=== PATIENT | male | born 1955 | race Caucasian/White ===

== ENCOUNTER → 2016-04-04 | Outpatient (CLI) | payer MEDICARE, OTHER ==
[~2016-04-04] MED LIST: /TIZA4TA PO; CLEO150C; COLA100C2; COLA100C2 OR; CYMB1CAP PO; FISH1000 PO; FLECTOR1.3 EXT; FLEX5TAB3 PO; FLEXERIL OR; IBUP600T OR; MAGN200T PO; MORP10SO OR; MORP15TA2 PO; MORPHINE SULFATE IR; MS C30TA2; MS C30TA2 OR; OMEP40CA2 PO; OXYC10TA12; OXYC40TA19; POTA75TA2 PO; REQU0.5T PO; SKEL800T5; SKEL800T5 OR; SOMA350T PO; TPS CREAM TOP; VITA100037 PO; VOLT1GEL2 TD; [UNRECOGNIZED DRUG - CODE]; [UNRECOGNIZED DRUG - CODE] OR; vitamin b PO
== END ==
LOC: M PAIN 11:00
PROVIDERS: ATTEND Nurse Practitioner Family
DX: M54.5 Low back pain (principal); M54.2 Cervicalgia; Z79.891 Long term (current) use of opiate analgesic; Z79.899 Other long term (current) drug therapy; F17.200 Nicotine dependence, unspecified, uncomplicated; Z88.6 Allergy status to analgesic agent; Z91.030 Bee allergy status

== ENCOUNTER → 2016-06-05 | Outpatient (CLI) | payer MEDICARE, OTHER | LOC: M PAIN 11:00 | PROVIDERS: ATTEND Nurse Practitioner Family | DX: Z09 Encounter for follow-up examination after completed treatment for conditions other than malignant neoplasm (principal); G89.29 Other chronic pain; M54.5 Low back pain; M54.2 Cervicalgia; K21.9 Gastro-esophageal reflux disease without esophagitis; Z91.030 Bee allergy status; Z88.8 Allergy status to other drugs, medicaments and biological substances; Z79.891 Long term (current) use of opiate analgesic; Z79.1 Long term (current) use of non-steroidal anti-inflammatories (NSAID); Z79.899 Other long term (current) drug therapy ==

== ENCOUNTER → 2016-06-18 | Outpatient (CLI) | payer MEDICARE, OTHER ==
[~2016-06-18] MED LIST changes: +BUPIVACAINE HCL 0.25% 30 ML VIAL As Ordered ONE; +ISOVUE-M 300 61% 15ML VIAL (Q9967) As Ordered ONE; +LIDOCAINE 1% SDV INJ 30 ML VIAL As Ordered ONE; +TRIAMCINOLONE ACETONIDE SUSP 40 MG/ML VIAL (J3301) As Ordered ONE
--- NOTE | 2016-06-18 13:36 | REP ---
Partial lumbar spine series: Six views. History: Bilateral facet block for pain. 30 seconds of fluoroscopy time is reported. Findings: A sequence of six last image hold fluoroscopic spot radiographs of the lumbar spine document various needle positions and contrast injections associated with facet injection procedures. Signed by Bry Ivy MD 06/18/2016 06:26 P
--- NOTE | 2016-06-24 23:43 | ECWPNPC ---
PATIENT NAME: KEMAR SEGURA : 1955 GENDER: MALE VISIT DATE: 06/18/2016 DISCHARGE DATE: 06/18/16 1323 VISIT LOCKED DATE TIME: PHYSICIAN: ANNAMARIE KELLEY RESOURCE: ANNAMARIE KELLEY REASON FOR APPOINTMENT 1. THERAPEUTIC FACET HISTORY OF PRESENT ILLNESS HISTORY OF PRESENT ILLNESS: PAIN THE PATIENT DESCRIBES THE PAIN... FALL RISK SCREENING: SCREENING :NO FALLS IN THE PAST YEAR CURRENT MEDICATIONS TAKING FISH OIL 1000 MG CAPSULE 1 CAPSULE ORALLY ONCE A DAY, NOTES: 06-17-16 AM TAKING VITAMIN D 2000 UNIT TABLET 1 TABLET ORALLY DAILY, NOTES: 06-17-16 AM TAKING VOLTAREN 1 % GEL 1 DOSE TRANSDERMAL EVERY 6- 8 HOURS NEEDED, NOTES: WEEK TAKING VITAMIN B-COMPLEX TABLET ORALLY DAILY, NOTES: 06-17-16 AM TAKING MORPHINE SULFATE 15 MG TABLET 1 TABLET ORALLY EVERY 6-8 HRS PRN PAIN MDD=2 TAKING IBUPROFEN 600 MG TABLET 1 TABLET ORALLY THREE TIMES A DAY NEEDED, NOTES: 06-18-1699 TAKING MORPHINE SULFATE 15 MG TABLET 1 TABLET NEEDED ORALLY Q4-6H PRN MDD2, NOTES: 06-18-16 010 TAKING ZANAFLEX 4 MG TABLET 1 ORALLY EVERY 8 HRS PRN MUSCLE SPASM PAIN, NOTES: 06-18-1699 DISCONTINUED MORPHINE SULFATE 15 MG CAPSULE NEEDED ORALLY BID PRN MDD 2 DISCONTINUED MAGNESIUM 200 MG TABLET ORALLY ONCE A DAY DISCONTINUED POTASSIMIN 75 MG TABLET 1 TABLET ORALLY ONCE A DAY DISCONTINUED VALIUM 10 MG TABLET 1 TABLET NEEDED ORALLY 1 TAB 1HR PRE PROC. MDD1 DISCONTINUED OMEPRAZOLE 40 MG 1 CAPSULE ORALLY ONCE A DAY MEDICATION LIST REVIEWED AND RECONCILED WITH THE PATIENT PAST MEDICAL HISTORY GERD CLUB FEET INFANT AND HAD BRACES AND CRUTCHES ALLERGIES BEE STINGS: HIVES,ITCHING NAPROSYN: HIVES, ITCHING SOCIAL HISTORY GENERAL: PAIN CLINIC PFS, CLERGY, PUBLIC HEALTH REFERRALS CLERGY REFERRAL NEEDED?NO WAS THE PROVIDER NOTIFIED OF ANY PERTINENT INFO?NO PFS REFERRAL NEEDED?NO PUBLIC HEALTH REFERRAL NEEDED?NO PATIENT: ____. REVIEW OF SYSTEMS CONSTITUTIONAL: ANY CHANGE IN YOUR MEDICAL CONDITION? NO . CHILLS NO . FEVER NO . INFECTION: DO YOU HAVE NEW INFECTIONS? NO . DO YOU HAVE HISTORY OF MRSA? NO . MUSCULOSKELETAL: ANY NEW PATTERNS OF PAIN OR NUMBNESS? NO . GASTROENTEROLOGY: ANY NEW CHANGE IN BOWEL CONTROL? NO . GENITOURINARY: ANY NEW CHANGE IN BLADDER CONTROL? NO . IS THERE A CHANCE YOU COULD BE ? NO . HEMATOLOGY/LYMPH: DO YOU TAKE ANY BLOOD THINNERS? (FOR EXAMPLE- COUMADIN, PLAVIX, AGGRENOX, PLATEL, PRADAXA, OR XARELTO) NO . WHEN WAS YOUR LAST DOSE? DATE: TIME: . NEUROLOGY: HAVE YOU FALLEN IN THE PAST 6 MONTHS? NO . ANY NEW EXTREMITY NUMBNESS OR WEAKNESS? NO . CARDIOLOGY: DO YOU HAVE A PACEMAKER OR DEFIBRILLATOR? NO . RESPIRATORY: HAVE YOU BEEN SICK IN THE PAST WEEK? NO . FEVER NO . FLU LIKE SYMPTOMS? NO . COUGH NO . INTEGUMENTARY: DO YOU HAVE ANY RASHES OR OPEN SORES? NO . ALLERGIC/IMMUNO: ARE YOU ALLERGIC TO SHELLFISH OR IV DYE? NO . ANY NEW ALLERGIES? NO . PSYCHIATRIC: DO YOU HAVE THOUGHTS OF HURTING YOURSELF OR SOMEONE ELSE? NO . ARE YOU ABUSED, NEGLECTED, OR IN AN UNSAFE ENVIRONMENT? NO . ENDOCRINOLOGY: ARE YOU DIABETIC? NO . OTHER: DO YOU NEED ANY PRESCRIPTIONS? NO . IF YES, PLEASE LIST: ____ . ANY NEW PROBLEMS WITH YOUR MEDICATIONS? NO . WHEN DID YOU LAST EAT? 06-17-16 3PM . WHEN DID YOU LAST DRINK? 06-18-16 0100 . WHAT DID YOU LAST DRINK? SODA . NAME OF PERSON DRIVING YOU HOME? ADELA . DO YOU HAVE ANY OTHER QUESTIONS OR CONCERNS NO . REVIEWED BY: PROVIDER: . VITAL SIGNS WT 254 LBS, HT 6'0, BMI 34.44 INDEX, BP 154/73 MM HG, HR 64 /MIN, RR 18 /MIN, TEMP 98.2 F, OXYGEN SAT % 97%, NA INITIALS SC 11:36, REVIEWED BY: CM. ASSESSMENTS SPONDYLOSIS WITHOUT MYELOPATHY OR RADICULOPATHY, LUMBAR REGION - M47.816 (PRIMARY) SPONDYLOSIS WITHOUT MYELOPATHY OR RADICULOPATHY, LUMBOSACRAL REGION - M47.817 PROCEDURES PN LUMBAR FACET BLOCK THERAPEUTIC PRE PROCEDURE DIAGNOSIS LUMBAR SPONDYLOSIS, LUMBOSACRAL SPONDYLOSIS POST PROCEDURE DIAGNOSIS LUMBAR SPONDYLOSIS, LUMBOSACRAL SPONDYLOSIS PROCEDURE BILATERAL L4-L5 AND BILATERAL L5-S1 LUMBAR FACET THERAPEUTIC BLOCK SURGEON DR. 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 I EVALUATE THE PATIENT AND REVIEWED THE CHART. I WENT OVER THE RISKS, ALTERNATIVES, AND BENEFITS ASSOCIATED WITH THIS PROCEDURE. THE PATIENT WOULD LIKE TO PROCEED AND GIVE CONSENT TO PERFORMED THE PROCEDURE. THE PATIENT DENIES UNEXPLAINABLE WEIGHT LOSS, FEVER, CHILLS, OR NEW CHANGES IN URINARY OR BOWEL CONTROL DESCRIPTION OF PROCEDURE THE PATIENT WAS BROUGHT TO THE PROCEDURE ROOM AND PLACED IN THE PRONE POSITION. THE LUMBOSACRAL AREA WAS CLEANED WITH CHLORAPREP SOLUTION AND DRAPED ASEPTICALLY. THE PROCEDURE WAS DONE UNDER STERILE CONDITIONS. I CHECKED LATERALITY AND THE LEVEL WHERE THE PROCEDURE WAS GOING TO BE PERFORMED WITH THE PATIENT AND THE SUPPORTING STAFF AT THE MOMENT OF THE TIME OUT IN THE PROCEDURE ROOM. UNDER FLUOROSCOPIC GUIDANCE, THE TARGET POINT WAS SELECTED AT THE RIGHT AND LEFT L4-L5 AND RIGHT AND LEFT L5-S1 FACET JOINT. TARGET POINT WAS SELECTED AFTER LATERAL ROTATION AND TILT OF THE MAGNIFIER OF THE C-ARM. LIDOCAINE 0.5% WAS USED TO NUMB THE SKIN AND THE SUBCUTANEOUS TISSUE BELOW IT. SPINAL NEEDLES, 22-GAUGE, WERE ADVANCED UNDER FLUOROSCOPIC GUIDANCE AND FOLLOWING PATIENT FEEDBACK UNTIL THE TARGETS WERE TOUCHED. THE POSITION OF THE NEEDLES WAS VERIFIED WITH AP AND LATERAL VIEWS. AFTER PROPER POSITION OF THE NEEDLES WAS ACHIEVED, ISOVUE-M DYE 30% 0.1 ML WAS INJECTED SHOWING ADEQUATE SPREAD OF THE DYE. THEN A SOLUTION OF 1.9 ML OF BUPIVACAINE 0.125% OF KENALOG 10 MG WAS INJECTED AT EACH SITE. THERE WAS NO EVIDENCE OF BLOOD, PARESTHESIA OR CEREBROSPINAL FLUID DURING THE PROCEDURE. THE PATIENT WAS SENT TO THE RECOVERY ROOM. THE PATIENT WAS MOVING THE EXTREMITIES AND DOING WELL. THERE WAS NO COMPLICATION DURING THE PROCEDURE. FLUOROSCOPY TIME WAS 30 SECONDS POST PROCEDURE NOTE THE PATIENT WILL BE SEEN IN A FOLLOW UP IN THE NEXT FEW WEEKS. INSTRUCTIONS WERE GIVEN, QUESTIONS WERE ANSWERED, AND THE PATIENT EXPRESSED UNDERSTANDING AND AGREES WITH THE PLAN. I, SAFIA DECKER, DOCUMENTED THE ABOVE INFORMATION ACTING A SCRIBE FOR DR. KELLEY. I HAVE REVIEWED THE ABOVE DOCUMENT, WRITTEN BY SAFIA DECKER SCRIBTaye AND I VERIFY THAT IT IS ACCURATE. DIAGNOSTIC IMAGING [facility] FACET BLOCK (PAIN)[id number] PROCEDURE CODES 79159 INJ PARAVERT F JNT L/S 1 LEV 93121 INJ PARAVERT F JNT L/S 2 LEV 6045F RADXPS IN END [id number] PXD DISPOSITION & COMMUNICATION FOLLOW UP 3 WEEKS ELECTRONICALLY SIGNED BY ANNAMARIE KELLEY MD ON 06/24/2016 AT 05:53 PM EDT DISCLAIMER : THIS IS A VISIT SUMMARY EXTRACTED FROM THE [facility] CHART. IT IS NOT A COPY OF THE [facility] PROGRESS NOTE. MTDD
== END ==
LOC: M PAIN 11:40
PROVIDERS: ATTEND Anesthesiology
DX: G89.29 Other chronic pain (principal); M47.816 Spondylosis without myelopathy or radiculopathy, lumbar region; M47.817 Spondylosis without myelopathy or radiculopathy, lumbosacral region; K21.9 Gastro-esophageal reflux disease without esophagitis; Z87.798 Personal history of other (corrected) congenital malformations; Z91.030 Bee allergy status; Z88.8 Allergy status to other drugs, medicaments and biological substances; Z79.891 Long term (current) use of opiate analgesic; Z79.899 Other long term (current) drug therapy
CPT/HCPCS: 64493; 64494; J3301; Q9967

== ENCOUNTER → 2016-07-04 | Outpatient (CLI) | payer MEDICARE, OTHER ==
[~2016-07-04] MED LIST changes: -BUPIVACAINE HCL 0.25% 30 ML VIAL As Ordered ONE; -ISOVUE-M 300 61% 15ML VIAL (Q9967) As Ordered ONE; -LIDOCAINE 1% SDV INJ 30 ML VIAL As Ordered ONE; -TRIAMCINOLONE ACETONIDE SUSP 40 MG/ML VIAL (J3301) As Ordered ONE
--- NOTE | 2016-07-18 00:01 | ECWPNPC ---
PATIENT NAME: KEMAR SEGURA : 1955 GENDER: MALE VISIT DATE: 07/04/2016 DISCHARGE DATE: 07/04/16 1543 VISIT LOCKED DATE TIME: PHYSICIAN: ALESSIA MATHEWS RESOURCE: ALESSIA MATHEWS HISTORY OF PRESENT ILLNESS HISTORY OF PRESENT ILLNESS: HERE FOR POST PROCEDURE F/U.HAD BILAT.L4/5-L5/S1 THERAPEUTIC FACET BLOCK ON 06-18-16.HAS HAD >50% IMPROVEMENT IN PAIN IN MID BACK THAT CONTINUES TODAY.CHIEF AREA OF PAIN IS SACROILLIAC JOINT AREA.DISCUSSED TREATMENT OPTIONS.PAIN IS AGGREVATED BY LIFTING OR WALKING.RATING THIS AREA OF PAIN 3/10.ALSO SUFFERS FROM CHRONIC NECK PAIN.PAIN IS CONSTANT IN NECK. PAIN THE PATIENT DESCRIBES THE PAIN... FALL RISK SCREENING: SCREENING :NO FALLS IN THE PAST YEAR CURRENT MEDICATIONS TAKING FISH OIL 1000 MG CAPSULE 1 CAPSULE ORALLY ONCE A DAY TAKING VITAMIN D 2000 UNIT TABLET 1 TABLET ORALLY DAILY TAKING VOLTAREN 1 % GEL 1 DOSE TRANSDERMAL EVERY 6- 8 HOURS NEEDED TAKING VITAMIN B-COMPLEX TABLET ORALLY DAILY TAKING IBUPROFEN 600 MG TABLET 1 TABLET ORALLY THREE TIMES A DAY NEEDED TAKING MORPHINE SULFATE 15 MG TABLET 1 TABLET NEEDED ORALLY Q4-6H PRN MDD2 TAKING ZANAFLEX 4 MG TABLET 1 ORALLY EVERY 8 HRS PRN MUSCLE SPASM PAIN NOT-TAKING MORPHINE SULFATE 15 MG TABLET 1 TABLET ORALLY EVERY 6-8 HRS PRN PAIN MDD=2 MEDICATION LIST REVIEWED AND RECONCILED WITH THE PATIENT PAST MEDICAL HISTORY GERD CLUB FEET AND HAD BRACES AND CRUTCHES ALLERGIES BEE STINGS: HIVES,ITCHING NAPROSYN: HIVES, ITCHING FAMILY HISTORY FATHER: 78 YRS, DIAGNOSED WITH DIABETES, HYPERTENSION MOTHER: 56 YRS, DIAGNOSED WITH CANCER DAD- MESOPHELIOMA, DAUGHTER - MURDERED. SOCIAL HISTORY GENERAL: TOBACCO USE ARE YOU A:CURRENT SMOKER HOW MANY CIGARETTES A DAY DO YOU SMOKE? 2 PACKS PER DAY PATIENT COUNSELED ON THE DANGERS OF TOBACCO USE AND URGED TO QUIT:07/04/2016 ARE YOU INTERESTED IN QUITTING?NOT READY TO QUIT COUNSELED THE PATIENT ON SMOKING EFFECTS, EDUCATION [id number]/2017 CAFFEINE CAFFEINE USE?YES HOW OFTEN AND HOW MUCH? 12 CUPS PER DAY LEARNING BARRIERS / SPECIAL NEEDS VISION IMPAIRED?YES :CORRECTIVE LENSES READINESS TO LEARN?YES SPECIAL DEVICES?NO PAIN CLINIC PFS, CLERGY, PUBLIC HEALTH REFERRALS PFS REFERRAL NEEDED?NO CLERGY REFERRAL NEEDED?NO PUBLIC HEALTH REFERRAL NEEDED?NO WAS THE PROVIDER NOTIFIED OF ANY PERTINENT INFO?YES REVIEWED BY: ANTOINE. PATIENT: ____. ADVANCED DIRECTIVES HEALTH CARE PROXY?NO WOULD YOU LIKE MORE INFORMATION?YES REVIEW OF SYSTEMS CONSTITUTIONAL: ANY CHANGE IN YOUR MEDICAL CONDITION? NO . CHILLS NO . FEVER NO . INFECTION: DO YOU HAVE NEW INFECTIONS? NO . DO YOU HAVE HISTORY OF MRSA? NO . MUSCULOSKELETAL: ANY NEW PATTERNS OF PAIN OR NUMBNESS? NO . GASTROENTEROLOGY: ANY NEW CHANGE IN BOWEL CONTROL? NO . GENITOURINARY: ANY NEW CHANGE IN BLADDER CONTROL? NO . IS THERE A CHANCE YOU COULD BE ? NO . HEMATOLOGY/LYMPH: DO YOU TAKE ANY BLOOD THINNERS? (FOR EXAMPLE- COUMADIN, PLAVIX, AGGRENOX, PLATEL, PRADAXA, OR XARELTO) NO . WHEN WAS YOUR LAST DOSE? DATE: TIME: . NEUROLOGY: HAVE YOU FALLEN IN THE PAST 6 MONTHS? NO . ANY NEW EXTREMITY NUMBNESS OR WEAKNESS? NO . CARDIOLOGY: DO YOU HAVE A PACEMAKER OR DEFIBRILLATOR? NO . RESPIRATORY: HAVE YOU BEEN SICK IN THE PAST WEEK? NO . FEVER NO . FLU LIKE SYMPTOMS? NO . COUGH NO . INTEGUMENTARY: DO YOU HAVE ANY RASHES OR OPEN SORES? NO . ALLERGIC/IMMUNO: ARE YOU ALLERGIC TO SHELLFISH OR IV DYE? NO . ANY NEW ALLERGIES? NO . PSYCHIATRIC: DO YOU HAVE THOUGHTS OF HURTING YOURSELF OR SOMEONE ELSE? NO . ARE YOU ABUSED, NEGLECTED, OR IN AN UNSAFE ENVIRONMENT? NO . ENDOCRINOLOGY: ARE YOU DIABETIC? NO . OTHER: DO YOU NEED ANY PRESCRIPTIONS? NO . IF YES, PLEASE LIST: ____ . ANY NEW PROBLEMS WITH YOUR MEDICATIONS? NO . WHEN DID YOU LAST EAT? ____ . WHEN DID YOU LAST DRINK? ____ . WHAT DID YOU LAST DRINK? ____ . NAME OF PERSON DRIVING YOU HOME? ____ . DO YOU HAVE ANY OTHER QUESTIONS OR CONCERNS NO, PT STATES THAT HE IS A CURRENT SMOKER AND REFUSES ANY SMOKING CESSATION COUSELING AT THIS TIME. PT STATES THAT HE HAD GOOD RESULTS FROM THERAPEUTIC FACET BLOCK, PAIN WAS DECREASED. PT STATES THAT MD KELLEY RECOMMENDED THAT HE HAVE SIJ BLOCK INJECTIONS, PT STATES THAT HE ALSO IS HAVING NECK PAIN. PT STATES THAT HE LEANED TO SIDE AND RESTED HEAD ON SHOULDER AND DECREASED PAIN SIGNIFICANTLY . REVIEWED BY: PROVIDER: ALESSIA RUVALCABA . VITAL SIGNS WT 248 LBS, HT 6'0, BMI 33.63 INDEX, BP 149/76 MM HG, HR 76 /MIN, RR 18 /MIN, TEMP 98.8 F, OXYGEN SAT % 95, SAFE IN ENV? (Y/N) Y, REVIEWED BY: DS. EXAMINATION GENERAL EXAMINATION: LUNGS:LUNG SOUNDS ARE CLEAR. HEART:HEART RATE REGULAR. MUSCULOSKELETAL:*, PALPATION: POSITIVE FOR PAIN OVER L/S SPINE. POSITIVE FOR PAIN OVER L/S PARASPINALS, MUSCLE STRENGTH TESTING 5/5 BILATERAL, SPECIFIC POINT TENDERNESS OVER SIJ BILATERAL. 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 MRI SPINE, CERVICAL WITHOUT [id number] [facility] MRI SPINE, L.S. WITHOUT [id number] INJECTION ANESTHETIC SACROILIAC JOINTALESSIA MATHEWS 07/04/2016 3:27:45 PM > BILAT. SIJ PROCEDURE CODES FA211 ESTABILISHED PATIENT [facility] FACILITY CHARGE DISPOSITION & COMMUNICATION FOLLOW UP 2WK POST (REASON: BILAT. SIJ) ELECTRONICALLY SIGNED BY PEG ANDERSON ON 07/17/2016 AT 04:57 PM EDT DISCLAIMER : THIS IS A VISIT SUMMARY EXTRACTED FROM THE [facility] CHART. IT IS NOT A COPY OF THE [facility] PROGRESS NOTE. KEITH
== END ==
LOC: M PAIN 14:40
PROVIDERS: ATTEND Nurse Practitioner Family
DX: G89.29 Other chronic pain (principal); M54.5 Low back pain; M54.2 Cervicalgia; M53.3 Sacrococcygeal disorders, not elsewhere classified; K21.9 Gastro-esophageal reflux disease without esophagitis; F17.200 Nicotine dependence, unspecified, uncomplicated; Z91.030 Bee allergy status; Z88.8 Allergy status to other drugs, medicaments and biological substances; Z79.899 Other long term (current) drug therapy

== ENCOUNTER → 2016-07-17 | Outpatient (CLI) | payer MEDICARE, OTHER ==
[~2016-07-17] MED LIST changes: +BUPIVACAINE HCL 0.25% 30 ML VIAL As Ordered ONE; +ISOVUE-M 300 61% 15ML VIAL (Q9967) As Ordered ONE; +LIDOCAINE 1% SDV INJ 30 ML VIAL As Ordered ONE; +TRIAMCINOLONE ACETONIDE SUSP 40 MG/ML VIAL (J3301) As Ordered ONE
--- NOTE | 2016-07-17 12:14 | REP ---
Partial SI joint series: Five views. History: Injection procedure for pain. 28 seconds of fluoroscopy time is reported. Findings: A sequence of five intraprocedural last image hold fluoroscopically obtained spot radiographs of the SI joints document various needle positions and contrast injections. Signed by Bry Ivy MD 07/17/2016 12:27 P
--- NOTE | 2016-07-26 23:53 | ECWPNPC ---
PATIENT NAME: KEMAR SEGURA : 1955 GENDER: MALE VISIT DATE: 07/17/2016 DISCHARGE DATE: 07/17/16 1158 VISIT LOCKED DATE TIME: PHYSICIAN: ANNAMARIE KELLEY RESOURCE: ANNAMARIE KELLEY REASON FOR APPOINTMENT 1. GABRIELLA SIJ HISTORY OF PRESENT ILLNESS HISTORY OF PRESENT ILLNESS: PAIN THE PATIENT DESCRIBES THE PAIN... FALL RISK SCREENING: SCREENING :NO FALLS IN THE PAST YEAR CURRENT MEDICATIONS TAKING FISH OIL 1000 MG CAPSULE 1 CAPSULE ORALLY ONCE A DAY, NOTES: 07/16/16899 TAKING VITAMIN D 2000 UNIT TABLET 1 TABLET ORALLY DAILY, NOTES: 07/16/16899 TAKING VOLTAREN 1 % GEL 1 DOSE TRANSDERMAL EVERY 6- 8 HOURS NEEDED, NOTES: 07/13/16 TAKING VITAMIN B-COMPLEX TABLET ORALLY DAILY, NOTES: 07/16/16899 TAKING IBUPROFEN 600 MG TABLET 1 TABLET ORALLY THREE TIMES A DAY NEEDED, NOTES: 07/15/16899 TAKING MORPHINE SULFATE 15 MG TABLET 1 TABLET NEEDED ORALLY Q4-6H PRN MDD2, NOTES: 07/16/16899 TAKING ZANAFLEX 4 MG TABLET 1 ORALLY EVERY 8 HRS PRN MUSCLE SPASM PAIN, NOTES: 07/16/16899 NOT-TAKING MORPHINE SULFATE 15 MG TABLET 1 TABLET ORALLY EVERY 6-8 HRS PRN PAIN MDD=2 MEDICATION LIST REVIEWED AND RECONCILED WITH THE PATIENT PAST MEDICAL HISTORY GERD CLUB FEET AND HAD BRACES AND CRUTCHES ALLERGIES BEE STINGS: HIVES,ITCHING NAPROSYN: HIVES, ITCHING SOCIAL HISTORY GENERAL: TOBACCO USE ARE YOU A:CURRENT SMOKER HOW MANY CIGARETTES A DAY DO YOU SMOKE?31 OR MORE 2 PACKS PER DAY HOW SOON AFTER YOU WAKE UP DO YOU SMOKE YOUR FIRST CIGARETTE?WITHIN 5 MIN HOW OFTEN DO YOU SMOKE CIGARETTES?EVERY DAY PATIENT COUNSELED ON THE DANGERS OF TOBACCO USE AND URGED TO QUIT:07/17/2016 ARE YOU INTERESTED IN QUITTING?NOT READY TO QUIT COUNSELED THE PATIENT ON SMOKING EFFECTS, EDUCATION [id number]/16/2017 CAFFEINE CAFFEINE USE?YES HOW OFTEN AND HOW MUCH? 12 CUPS PER DAY LEARNING BARRIERS / SPECIAL NEEDS VISION IMPAIRED?YES :CORRECTIVE LENSES READINESS TO LEARN?YES SPECIAL DEVICES?NO PAIN CLINIC PFS, CLERGY, PUBLIC HEALTH REFERRALS PFS REFERRAL NEEDED?NO CLERGY REFERRAL NEEDED?NO PUBLIC HEALTH REFERRAL NEEDED?NO WAS THE PROVIDER NOTIFIED OF ANY PERTINENT INFO?YES REVIEWED BY: ANTOINE. PATIENT: ____. ADVANCED DIRECTIVES HEALTH CARE PROXY?NO WOULD YOU LIKE MORE INFORMATION?YES REVIEW OF SYSTEMS CONSTITUTIONAL: ANY CHANGE IN YOUR MEDICAL CONDITION? NO . CHILLS NO . FEVER NO . INFECTION: DO YOU HAVE NEW INFECTIONS? NO . DO YOU HAVE HISTORY OF MRSA? NO . MUSCULOSKELETAL: ANY NEW PATTERNS OF PAIN OR NUMBNESS? NO . GASTROENTEROLOGY: ANY NEW CHANGE IN BOWEL CONTROL? NO . GENITOURINARY: ANY NEW CHANGE IN BLADDER CONTROL? NO . IS THERE A CHANCE YOU COULD BE ? NO . HEMATOLOGY/LYMPH: DO YOU TAKE ANY BLOOD THINNERS? (FOR EXAMPLE- COUMADIN, PLAVIX, AGGRENOX, PLATEL, PRADAXA, OR XARELTO) NO . WHEN WAS YOUR LAST DOSE? DATE: TIME: . NEUROLOGY: HAVE YOU FALLEN IN THE PAST 6 MONTHS? NO . ANY NEW EXTREMITY NUMBNESS OR WEAKNESS? NO . CARDIOLOGY: DO YOU HAVE A PACEMAKER OR DEFIBRILLATOR? NO . RESPIRATORY: HAVE YOU BEEN SICK IN THE PAST WEEK? NO . FEVER NO . FLU LIKE SYMPTOMS? NO . COUGH NO . INTEGUMENTARY: DO YOU HAVE ANY RASHES OR OPEN SORES? NO . ALLERGIC/IMMUNO: ARE YOU ALLERGIC TO SHELLFISH OR IV DYE? NO . ANY NEW ALLERGIES? NO . PSYCHIATRIC: DO YOU HAVE THOUGHTS OF HURTING YOURSELF OR SOMEONE ELSE? NO . ARE YOU ABUSED, NEGLECTED, OR IN AN UNSAFE ENVIRONMENT? NO . ENDOCRINOLOGY: ARE YOU DIABETIC? NO . OTHER: DO YOU NEED ANY PRESCRIPTIONS? NO . IF YES, PLEASE LIST: ____ . ANY NEW PROBLEMS WITH YOUR MEDICATIONS? NO . WHEN DID YOU LAST EAT? 07/16/162199 . WHEN DID YOU LAST DRINK? 07/16/162199 . WHAT DID YOU LAST DRINK? MILK . NAME OF PERSON DRIVING YOU HOME? ____ . DO YOU HAVE ANY OTHER QUESTIONS OR CONCERNS NO . REVIEWED BY: PROVIDER: . VITAL SIGNS WT 245.6 LBS, HT 6'0, BMI 33.31 INDEX, BP 139/79 MM HG, HR 63 /MIN, RR 16 /MIN, TEMP 98.2 F, OXYGEN SAT % 96%, NA INITIALS TL 1034, REVIEWED BY: AD. ASSESSMENTS SACROILIITIS, NOT ELSEWHERE CLASSIFIED - M46.1 (PRIMARY) PROCEDURES PN SI PRE PROCEDURE DIAGNOSIS SACROILIITIS, SACROILIAC JOINT DYSFUNCTION POST PROCEDURE DIAGNOSIS SACROILIITIS, SACROILIAC JOINT DYSFUNCTION PROCEDURE BILATERAL SACROILIAC JOINT BLOCK SURGEON DR. ANNAMARIE KELLEY PRODUCT PROMOTER RETAIL PET NONE ANESTHESIA LOCAL PRE PROCEDURE NOTE PATIENT WITH HISTORY OF CHRONIC LOW BACK PAIN. I EVALUATED THE PATIENT AND REVIEWED THE CHART. I WENT OVER THE RISKS, ALTERNATIVES, AND BENEFITS ASSOCIATED WITH THIS PROCEDURE. THE PATIENT WOULD LIKE TO PROCEED AND GAVE CONSENT TO PERFORM THE PROCEDURE. THE PATIENT DENIES UNEXPLAINABLE WEIGHT LOSS, FEVER, CHILLS, OR NEW CHANGES IN URINARY OR BOWEL CONTROL DESCRIPTION OF PROCEDURE THE PATIENT WAS BROUGHT TO THE PROCEDURE ROOM AND PLACED IN THE PRONE POSITION. THE LUMBOSACRAL AREA WAS CLEANED WITH CHLORAPREP SOLUTION AND DRAPED ASEPTICALLY. THE PROCEDURE WAS DONE UNDER STERILE CONDITIONS. I CHECKED LATERALITY AND THE LEVEL WHERE THE PROCEDURE WAS GOING TO BE PERFORMED WITH THE PATIENT AND THE SUPPORTING STAFF AT THE MOMENT OF THE TIME OUT IN THE PROCEDURE ROOM. UNDER FLUOROSCOPIC GUIDANCE, TARGET POINT WAS SELECTED AT THE LOWER BORDER OF THE RIGHT AND LEFT SACROILIAC JOINT. TARGET POINT WAS SELECTED AFTER MEDIAL ROTATION AND TILT OF THE MAGNIFIER OF THE C-ARM. LIDOCAINE WAS USED TO NUMB THE SKIN AND SUBCUTANEOUS TISSUE BELOW IT. A SPINAL NEEDLE, 22-GAUGE, WAS ADVANCED UNDER FLUOROSCOPIC GUIDANCE AND FOLLOWING PATIENT FEEDBACK UNTIL THE TARGET AREA WAS TOUCHED. THE POSITION OF THE NEEDLE WAS VERIFIED WITH AP AND LATERAL VIEWS. AFTER PROPER POSITION OF THE NEEDLE WAS ACHIEVED, ISOVUE M DYE 30%, 0.25 ML, WAS INJECTED SHOWING SPREAD OF THE DYE. THEN, A SOLUTION OF 20 MG OF KENALOG WAS INJECTED IN RIGHT JOINT WITH 3 ML OF BUPIVACAINE 0.125%. THERE WAS NO EVIDENCE OF BLOOD, PARESTHESIA OR CEREBROSPINAL FLUID DURING THE PROCEDURE. THE PATIENT WAS SENT TO THE RECOVERY ROOM. THE PATIENT WAS MOVING THE EXTREMITIES AND DOING WELL. THERE WAS NO COMPLICATION DURING THE PROCEDURE. FLUOROSCOPY TIME WAS 28 SECONDS POST PROCEDURE NOTE THE PATIENT WILL BE SEEN IN A FOLLOW UP IN THE NEXT FEW WEEKS. INSTRUCTIONS WERE GIVEN, QUESTIONS WERE ANSWERED, AND THE PATIENT EXPRESSED UNDERSTANDING AND AGREED WITH THE PLAN. I, SAFIA DECKER, DOCUMENTED THE ABOVE INFORMATION ACTING A SCRIBE FOR DR. KELLEY. I HAVE REVIEWED THE ABOVE DOCUMENT, WRITTEN BY SAFIA ALVAREZ AND I VERIFY THAT IT IS ACCURATE DIAGNOSTIC IMAGING [facility] FLUORO GUIDANCE (PAIN)[id number] PROCEDURE CODES 24141 INJECT SACROILIAC JOINT 6045F RADXPS IN END [id number] PXD DISPOSITION & COMMUNICATION FOLLOW UP 3 WEEKS ELECTRONICALLY SIGNED BY ANNAMARIE KELLEY MD ON 07/26/2016 AT 07:59 PM EDT DISCLAIMER : THIS IS A VISIT SUMMARY EXTRACTED FROM THE [employer] CHART. IT IS NOT A COPY OF THE [employer] PROGRESS NOTE. KEITH
== END ==
LOC: M PAIN 11:00
PROVIDERS: ATTEND Anesthesiology
DX: G89.29 Other chronic pain (principal); M46.1 Sacroiliitis, not elsewhere classified; M53.88 Other specified dorsopathies, sacral and sacrococcygeal region; F17.210 Nicotine dependence, cigarettes, uncomplicated; Z79.899 Other long term (current) drug therapy
CPT/HCPCS: G0260; J3301; Q9967

== ENCOUNTER → 2016-07-31 | Outpatient (CLI) | payer MEDICARE, OTHER ==
[~2016-07-31] MED LIST changes: -BUPIVACAINE HCL 0.25% 30 ML VIAL As Ordered ONE; -ISOVUE-M 300 61% 15ML VIAL (Q9967) As Ordered ONE; -LIDOCAINE 1% SDV INJ 30 ML VIAL As Ordered ONE; -TRIAMCINOLONE ACETONIDE SUSP 40 MG/ML VIAL (J3301) As Ordered ONE
--- NOTE | 2016-08-01 01:12 | ECWPNPC ---
PATIENT NAME: KEMAR SEGURA : 1955 GENDER: MALE VISIT DATE: 07/31/2016 DISCHARGE DATE: 07/31/16 1142 VISIT LOCKED DATE TIME: PHYSICIAN: ALESSIA MATHEWS RESOURCE: ALESSIA MATHEWS REASON FOR APPOINTMENT 1. POST GABRIELLA SIJ HISTORY OF PRESENT ILLNESS HISTORY OF PRESENT ILLNESS: HERE FOR POST PROCEDURE F/U.HAD BILAT. SIJ 07-17-16.REPORTS >75% IMPROVEMENT IN PAIN THAT CONTINUES TODAY.RATING PAIN VAS 2/10.WORSE AREA OF PAIN IS NECK.DESCRIBES PAIN TENDER AND SORE.REVIEWED MRI LUMBAR SPINE AND CERVICAL SPINE DONE 07-09-16.HAS RESPONDED WELL TO CERVICAL FACETS IN THE PAST. PAIN THE PATIENT DESCRIBES THE PAIN... FALL RISK SCREENING: SCREENING :NO FALLS IN THE PAST YEAR CURRENT MEDICATIONS TAKING FISH OIL 1000 MG CAPSULE 1 CAPSULE ORALLY ONCE A DAY, NOTES: 07/16/16 09 TAKING VITAMIN D 2000 UNIT TABLET 1 TABLET ORALLY DAILY, NOTES: 07/16/16 09 TAKING VOLTAREN 1 % GEL 1 DOSE TRANSDERMAL EVERY 6- 8 HOURS NEEDED, NOTES: 07/13/16 TAKING VITAMIN B-COMPLEX TABLET ORALLY DAILY, NOTES: 07/16/16 09 TAKING IBUPROFEN 600 MG TABLET 1 TABLET ORALLY THREE TIMES A DAY NEEDED, NOTES: 07/15/16 0900 TAKING MORPHINE SULFATE 15 MG TABLET 1 TABLET NEEDED ORALLY Q4-6H PRN MDD2, NOTES: 07/16/16 09 TAKING ZANAFLEX 4 MG TABLET 1 ORALLY EVERY 8 HRS PRN MUSCLE SPASM PAIN, NOTES: 07/16/16 09 NOT-TAKING MORPHINE SULFATE 15 MG TABLET 1 TABLET ORALLY EVERY 6-8 HRS PRN PAIN MDD=2 MEDICATION LIST REVIEWED AND RECONCILED WITH THE PATIENT PAST MEDICAL HISTORY GERD CLUB FEET INFANT AND HAD BRACES AND CRUTCHES ALLERGIES BEE STINGS: HIVES,ITCHING NAPROSYN: HIVES, ITCHING SURGICAL HISTORY LUMBAR FUSION L-5 S1 HOSPITALIZATION/MAJOR DIAGNOSTIC PROCEDURE PNEUMONIA 2013 REVIEW OF SYSTEMS CONSTITUTIONAL: ANY CHANGE IN YOUR MEDICAL CONDITION? NO . CHILLS NO . FEVER NO . INFECTION: DO YOU HAVE NEW INFECTIONS? NO . DO YOU HAVE HISTORY OF MRSA? NO . MUSCULOSKELETAL: ANY NEW PATTERNS OF PAIN OR NUMBNESS? YES, NECK PAIN WAXES AND WANES . GASTROENTEROLOGY: ANY NEW CHANGE IN BOWEL CONTROL? NO . GENITOURINARY: ANY NEW CHANGE IN BLADDER CONTROL? NO . IS THERE A CHANCE YOU COULD BE ? NO . HEMATOLOGY/LYMPH: DO YOU TAKE ANY BLOOD THINNERS? (FOR EXAMPLE- COUMADIN, PLAVIX, AGGRENOX, PLATEL, PRADAXA, OR XARELTO) NO . WHEN WAS YOUR LAST DOSE? DATE: TIME: . NEUROLOGY: HAVE YOU FALLEN IN THE PAST 6 MONTHS? NO . ANY NEW EXTREMITY NUMBNESS OR WEAKNESS? NO . CARDIOLOGY: DO YOU HAVE A PACEMAKER OR DEFIBRILLATOR? NO . RESPIRATORY: HAVE YOU BEEN SICK IN THE PAST WEEK? NO . FEVER NO . FLU LIKE SYMPTOMS? NO . COUGH NO . INTEGUMENTARY: DO YOU HAVE ANY RASHES OR OPEN SORES? NO . ALLERGIC/IMMUNO: ARE YOU ALLERGIC TO SHELLFISH OR IV DYE? NO . ANY NEW ALLERGIES? NO . PSYCHIATRIC: DO YOU HAVE THOUGHTS OF HURTING YOURSELF OR SOMEONE ELSE? NO . ARE YOU ABUSED, NEGLECTED, OR IN AN UNSAFE ENVIRONMENT? NO . ENDOCRINOLOGY: ARE YOU DIABETIC? NO . OTHER: DO YOU NEED ANY PRESCRIPTIONS? NO . IF YES, PLEASE LIST: ____ . ANY NEW PROBLEMS WITH YOUR MEDICATIONS? NO . WHEN DID YOU LAST EAT? ____ . WHEN DID YOU LAST DRINK? ____ . WHAT DID YOU LAST DRINK? ____ . NAME OF PERSON DRIVING YOU HOME? ____ . DO YOU HAVE ANY OTHER QUESTIONS OR CONCERNS NO . REVIEWED BY: PROVIDER: ALESSIA RUVALCABA . VITAL SIGNS WT 247.0 LBS, HT 6'0, BMI 33.50 INDEX, BP 147/66 MM HG, HR 72 /MIN, RR 16 /MIN, TEMP 97.9 F, OXYGEN SAT % 96%, SAFE IN ENV? (Y/N) Y, NA INITIALS TL 1055, REVIEWED BY: EM. EXAMINATION GENERAL EXAMINATION: LUNGS:LUNG SOUNDS ARE CLEAR. HEART:HEART RATE REGULAR. MUSCULOSKELETAL:*, PALPATION: POSITIVE FOR PAIN OVER L/S SPINE. POSITIVE FOR PAIN OVER L/S PARASPINALS, MUSCLE STRENGTH TESTING 5/5 BILATERAL LOWER EXTREMITIES.. DIAGNOSTIC DATA-MRI [id number] MRI-L/S [id number]-REVIEWED. CERVICAL SPINE/NECK: RANGE OF MOTION OF NECK:NORMAL IN ALL DIRECTIONS. MOTOR STRENGTH:NORMAL. VERTEBRAL SPINE TENDERNESS:BILATERAL CERVICAL FACET TENDRNESS.. PARASPINAL MUSCLE SPASM:PRESENT BILATERALLY. ASSESSMENTS LOW BACK PAIN OF OVER 3 MONTHS DURATION - M54.5 (PRIMARY) CERVICALGIA - M54.2 CHRONIC PRESCRIPTION OPIATE USE - Z79.891 TREATMENT LOW BACK PAIN OF OVER 3 MONTHS DURATION NOTES: REQUEST BILAT. C3/4/-4-5/5-6 CERVICAL THERAPEUTIC FACET BLOCK. PROCEDURE CODES FA211 ESTABILISHED PATIENT [facility] CHARGE G8730 PAIN ASSESS POS TOOL F/U PLAN DOC G8427 DOC MEDS VERIFIED W/PT OR RE DISPOSITION & COMMUNICATION FOLLOW UP 2WK POST (REASON: REQUEST BILAT. C3/4/-4-5/5-6 CERVICAL THERAPEUTIC FACET BLOCK) ELECTRONICALLY SIGNED BY PEG ANDERSON ON 07/31/2016 AT 04:53 PM EDT DISCLAIMER : THIS IS A VISIT SUMMARY EXTRACTED FROM THE [employer] CHART. IT IS NOT A COPY OF THE [employer] PROGRESS NOTE. MTDAshley
== END ==
LOC: M PAIN 10:40
PROVIDERS: ATTEND Nurse Practitioner Family
DX: M54.5 Low back pain (principal); M54.2 Cervicalgia; Z79.891 Long term (current) use of opiate analgesic; Z79.899 Other long term (current) drug therapy; Z88.6 Allergy status to analgesic agent; Z91.030 Bee allergy status

== ENCOUNTER → 2016-08-07 | Outpatient (CLI) | payer MEDICARE, OTHER ==
[~2016-08-07] MED LIST changes: +BUPIVACAINE HCL 0.25% 30 ML VIAL As Ordered ONE; +ISOVUE-M 300 61% 15ML VIAL (Q9967) As Ordered ONE; +LIDOCAINE 1% SDV INJ 30 ML VIAL As Ordered ONE; +TRIAMCINOLONE ACETONIDE SUSP 40 MG/ML VIAL (J3301) As Ordered ONE
--- NOTE | 2016-08-07 12:49 | REP ---
Partial cervical spine series: Two views. History: Bilateral cervical facet block for pain. 9 seconds of fluoroscopy time is reported. Findings: A sequence of two fluoroscopically obtained last image hold spot radiographs of the cervical spine document bilateral needle position and contrast injections associated with facet injection procedures. Signed by Bry Ivy MD 08/07/2016 02:52 P
--- NOTE | 2016-08-12 23:28 | ECWPNPC ---
PATIENT NAME: KEMAR SEGURA : 1955 GENDER: MALE VISIT DATE: 08/07/2016 DISCHARGE DATE: 08/07/16 1232 VISIT LOCKED DATE TIME: PHYSICIAN: ANNAMARIE KELLEY RESOURCE: ANNAMARIE KELLEY REASON FOR APPOINTMENT 1. BILAT. C3/4/-4-5/5-6 CERVICAL THERAPEUTIC FACET BLOCK HISTORY OF PRESENT ILLNESS HISTORY OF PRESENT ILLNESS: PAIN THE PATIENT DESCRIBES THE PAIN... FALL RISK SCREENING: SCREENING :NO FALLS IN THE PAST YEAR CURRENT MEDICATIONS TAKING FISH OIL 1000 MG CAPSULE 1 CAPSULE ORALLY ONCE A DAY, NOTES: 08-06-16799 TAKING VITAMIN D 2000 UNIT TABLET 1 TABLET ORALLY DAILY, NOTES: 08-06-16799 TAKING VOLTAREN 1 % GEL 1 DOSE TRANSDERMAL EVERY 6- 8 HOURS NEEDED, NOTES: NONE TAKING VITAMIN B-COMPLEX TABLET ORALLY DAILY, NOTES: 08-06-16799 TAKING IBUPROFEN 600 MG TABLET 1 TABLET ORALLY THREE TIMES A DAY NEEDED, NOTES: 08-06-16799 TAKING MORPHINE SULFATE 15 MG TABLET 1 TABLET NEEDED ORALLY Q4-6H PRN MDD2, NOTES: 08-05-161999 TAKING ZANAFLEX 4 MG TABLET 1 ORALLY EVERY 8 HRS PRN MUSCLE SPASM PAIN, NOTES: 08-05-161999 NOT-TAKING MORPHINE SULFATE 15 MG TABLET 1 TABLET ORALLY EVERY 6-8 HRS PRN PAIN MDD=2 MEDICATION LIST REVIEWED AND RECONCILED WITH THE PATIENT PAST MEDICAL HISTORY GERD CLUB FEET INFANT AND HAD BRACES AND CRUTCHES ALLERGIES BEE STINGS: HIVES,ITCHING NAPROSYN: HIVES, ITCHING REVIEW OF SYSTEMS CONSTITUTIONAL: ANY CHANGE IN YOUR MEDICAL CONDITION? NO . CHILLS NO . FEVER NO . INFECTION: DO YOU HAVE NEW INFECTIONS? NO . DO YOU HAVE HISTORY OF MRSA? NO . MUSCULOSKELETAL: ANY NEW PATTERNS OF PAIN OR NUMBNESS? NO . GASTROENTEROLOGY: ANY NEW CHANGE IN BOWEL CONTROL? NO . GENITOURINARY: ANY NEW CHANGE IN BLADDER CONTROL? NO . IS THERE A CHANCE YOU COULD BE ? NO . HEMATOLOGY/LYMPH: DO YOU TAKE ANY BLOOD THINNERS? (FOR EXAMPLE- COUMADIN, PLAVIX, AGGRENOX, PLATEL, PRADAXA, OR XARELTO) NO . WHEN WAS YOUR LAST DOSE? DATE: TIME: . NEUROLOGY: HAVE YOU FALLEN IN THE PAST 6 MONTHS? NO . ANY NEW EXTREMITY NUMBNESS OR WEAKNESS? NO . CARDIOLOGY: DO YOU HAVE A PACEMAKER OR DEFIBRILLATOR? NO . RESPIRATORY: HAVE YOU BEEN SICK IN THE PAST WEEK? NO . FEVER NO . FLU LIKE SYMPTOMS? NO . COUGH NO . INTEGUMENTARY: DO YOU HAVE ANY RASHES OR OPEN SORES? NO . ALLERGIC/IMMUNO: ARE YOU ALLERGIC TO SHELLFISH OR IV DYE? NO . ANY NEW ALLERGIES? NO . PSYCHIATRIC: DO YOU HAVE THOUGHTS OF HURTING YOURSELF OR SOMEONE ELSE? NO . ARE YOU ABUSED, NEGLECTED, OR IN AN UNSAFE ENVIRONMENT? NO . ENDOCRINOLOGY: ARE YOU DIABETIC? NO . OTHER: DO YOU NEED ANY PRESCRIPTIONS? NO . IF YES, PLEASE LIST: ____ . ANY NEW PROBLEMS WITH YOUR MEDICATIONS? NO . WHEN DID YOU LAST EAT? 08-06-16 8PM . WHEN DID YOU LAST DRINK? 08-07-16 0600 . WHAT DID YOU LAST DRINK? COFFEE . NAME OF PERSON DRIVING YOU HOME? STEFANY . DO YOU HAVE ANY OTHER QUESTIONS OR CONCERNS NO . REVIEWED BY: PROVIDER: . VITAL SIGNS WT 247 LBS, HT 6'0, BMI 33.50 INDEX, BP 146/87 MM HG, HR 66 /MIN, RR 16 /MIN, TEMP 97.4 F, OXYGEN SAT % 98%, NA INITIALS TL 1034, REVIEWED BY: CM. ASSESSMENTS SPONDYLOSIS WITHOUT MYELOPATHY OR RADICULOPATHY, CERVICAL REGION - M47.812 (PRIMARY) PROCEDURES PN CERVICAL FACET BLOCK LOW BILATERAL CERVICAL PRE PROCEDURE DIAGNOSIS CERVICAL SPONDYLOSIS, CERVICOTHORACIC SPONDYLOSIS POST PROCEDURE DIAGNOSIS CERVICAL SPONDYLOSIS, CERVICOTHORACIC SPONDYLOSIS PROCEDURE BILATERAL C4-C5 AND C5-C6 CERVICAL FACET BLOCK THERAPEUTIC SURGEON DR. ANNAMARIE KELLEY INK BLENDER NONE ANESTHESIA LOCAL PRE PROCEDURE NOTE THE PATIENT HAS HISTORY OF CHRONIC CERVICAL PAIN. I EVALUATE THE PATIENT AND REVIEWED THE CHART. I WENT OVER THE RISKS, ALTERNATIVES, AND BENEFITS ASSOCIATED WITH THIS PROCEDURE. THE PATIENT WOULD LIKE TO PROCEED AND GIVE CONSENT TO PERFORMED THE PROCEDURE. THE PATIENT DENIES UNEXPLAINABLE WEIGHT LOSS, FEVER, CHILLS, OR NEW CHANGES IN URINARY OR BOWEL CONTROL. DESCRIPTION OF PROCEDURE THE PATIENT WAS BROUGHT TO THE PROCEDURE ROOM AND PLACED IN THE PRONE POSITION. THE CERVICOTHORACIC AREA WAS CLEANED WITH CHLORAPREP SOLUTION AND DRAPED ASEPTICALLY. THE PROCEDURE WAS DONE UNDER STERILE CONDITIONS. I CHECKED LATERALITY AND THE LEVEL WHERE THE PROCEDURE WAS GOING TO BE PERFORMED WITH THE PATIENT AND THE SUPPORTING STAFF AT THE MOMENT OF THE TIME OUT IN THE PROCEDURE ROOM. UNDER FLUOROSCOPIC GUIDANCE, TARGET POINT WAS SELECTED AT THE RIGHT AND LEFT C4-C5 AND C5-C6 CERVICAL FACET JOINT. TARGET POINTS WERE SELECTED AFTER LATERAL ROTATION AND TILT OF THE MAGNIFIER OF THE C-ARM. LIDOCAINE 0.5% WAS USED TO NUMB THE SKIN AND THE SUBCUTANEOUS TISSUE BELOW IT. SPINAL NEEDLES, 22-GAUGE, WERE ADVANCED UNDER FLUOROSCOPIC GUIDANCE AND FOLLOWING PATIENT FEEDBACK UNTIL THE TARGETS WERE TOUCHED. THE POSITION OF THE NEEDLES WAS VERIFIED WITH AP AND LATERAL VIEWS. AFTER PROPER POSITION OF THE NEEDLES WAS ACHIEVED, ISOVUE M DYE 30, 0.1 ML WAS INJECTED SHOWING SPREAD OF THE DYE. THEN A SOLUTION OF 0.9 ML OF BUPIVACAINE 0.125% AND KENALOG 10 MG WAS INJECTED AT EACH SITE. THERE WAS NO EVIDENCE OF BLOOD, PARESTHESIA OR CEREBROSPINAL FLUID DURING THE PROCEDURE. THE PATIENT WAS SENT TO THE RECOVERY ROOM. THE PATIENT WAS MOVING THE EXTREMITIES AND DOING WELL. THERE WAS NO COMPLICATION DURING THE PROCEDURE. FLUOROSCOPY TIME WAS 9 SECONDS POST PROCEDURE NOTE THE PATIENT WILL BE SEEN IN A FOLLOW UP IN THE NEXT FEW WEEKS. INSTRUCTIONS WERE GIVEN, QUESTIONS WERE ANSWERED, AND THE PATIENT EXPRESSED UNDERSTANDING AND AGREES WITH THE PLAN. I, SAFIA DECKER, DOCUMENTED THE ABOVE INFORMATION ACTING A SCRIBE FOR DR. KELLEY. I HAVE REVIEWED THE ABOVE DOCUMENT, WRITTEN BY SAFIA DECKER SCRIBE AND I VERIFY THAT IT IS ACCURATE DIAGNOSTIC IMAGING [facility] FACET BLOCK (PAIN)[id number] PROCEDURE CODES 09384 INJ PARAVERT F JNT C/T 1 LEV 82378 INJ PARAVERT F JNT C/T 2 LEV 6045F RADXPS IN END [id number] PXD DISPOSITION & COMMUNICATION FOLLOW UP 3 WEEKS ELECTRONICALLY SIGNED BY ANNAMARIE KELLEY MD ON 08/12/2016 AT 07:46 PM EDT DISCLAIMER : THIS IS A VISIT SUMMARY EXTRACTED FROM THE [employer] CHART. IT IS NOT A COPY OF THE [employer] PROGRESS NOTE. MTDAshley
== END ==
LOC: M PAIN 10:20
PROVIDERS: ATTEND Anesthesiology
DX: G89.29 Other chronic pain (principal); M47.812 Spondylosis without myelopathy or radiculopathy, cervical region; K21.9 Gastro-esophageal reflux disease without esophagitis; Z91.030 Bee allergy status; Z88.8 Allergy status to other drugs, medicaments and biological substances; Z79.899 Other long term (current) drug therapy
CPT/HCPCS: 64490; 64491; J3301; Q9967

== ENCOUNTER → 2016-08-30 | Outpatient (CLI) | payer MEDICARE, OTHER ==
[~2016-08-30] MED LIST changes: -BUPIVACAINE HCL 0.25% 30 ML VIAL As Ordered ONE; -ISOVUE-M 300 61% 15ML VIAL (Q9967) As Ordered ONE; -LIDOCAINE 1% SDV INJ 30 ML VIAL As Ordered ONE; -REQU0.5T PO; +REQU1TAB15 PO; -TRIAMCINOLONE ACETONIDE SUSP 40 MG/ML VIAL (J3301) As Ordered ONE; -VITA100037 PO; +VITA100067 PO
--- NOTE | 2016-09-14 00:21 | ECWPNPC ---
PATIENT NAME: KEMAR SEGURA : 1955 GENDER: MALE VISIT DATE: 08/30/2016 DISCHARGE DATE: 08/30/16 1118 VISIT LOCKED DATE TIME: PHYSICIAN: ALESSIA MATHEWS RESOURCE: ALESSIA MATHEWS HISTORY OF PRESENT ILLNESS HISTORY OF PRESENT ILLNESS: HERE FOR POST PROCEDURE F/U.HAD BILAT. C4/5 CERVICAL THERAPEUTIC FACET BLOCK.REPORTS NO IMPROVEMENT IN PAIN RATING PAIN VAS 3/10.WORSE AREA OF PAIN IS NECK.DESCRIBES PAIN TENDER AND SORE.REVIEWED MRI LUMBAR SPINE AND CERVICAL SPINE DONE 07-09-16.DISCUSSED BATSHEVA.USING MSIR 15MG PRN AND SPORADICALLY WITH GOOD EFFECT.DENIES ADVERSE EFFECTS. PAIN THE PATIENT DESCRIBES THE PAIN... THE PATIENT DESCRIBES THE PAIN... FALL RISK SCREENING: SCREENING :NO FALLS IN THE PAST YEAR CURRENT MEDICATIONS TAKING FISH OIL 1000 MG CAPSULE 1 CAPSULE ORALLY ONCE A DAY TAKING VITAMIN D 2000 UNIT TABLET 1 TABLET ORALLY DAILY TAKING VOLTAREN 1 % GEL 1 DOSE TRANSDERMAL EVERY 6- 8 HOURS NEEDED TAKING VITAMIN B-COMPLEX TABLET ORALLY DAILY TAKING IBUPROFEN 600 MG TABLET 1 TABLET ORALLY THREE TIMES A DAY NEEDED TAKING MORPHINE SULFATE 15 MG TABLET 1 TABLET NEEDED ORALLY Q4-6H PRN MDD2 TAKING ZANAFLEX 4 MG TABLET 1 ORALLY EVERY 8 HRS PRN MUSCLE SPASM PAIN NOT-TAKING MORPHINE SULFATE 15 MG TABLET 1 TABLET ORALLY EVERY 6-8 HRS PRN PAIN MDD=2 MEDICATION LIST REVIEWED AND RECONCILED WITH THE PATIENT PAST MEDICAL HISTORY GERD CLUB FEET AND HAD BRACES AND CRUTCHES ALLERGIES BEE STINGS: HIVES,ITCHING NAPROSYN: HIVES, ITCHING SOCIAL HISTORY GENERAL: TOBACCO USE ARE YOU A:CURRENT SMOKER HOW MANY CIGARETTES A DAY DO YOU SMOKE?31 OR MORE 2 PACKS PER DAY HOW SOON AFTER YOU WAKE UP DO YOU SMOKE YOUR FIRST CIGARETTE?WITHIN 5 MIN HOW OFTEN DO YOU SMOKE CIGARETTES?EVERY DAY PATIENT COUNSELED ON THE DANGERS OF TOBACCO USE AND URGED TO QUIT:07/17/2016 ARE YOU INTERESTED IN QUITTING?NOT READY TO QUIT COUNSELED THE PATIENT ON SMOKING EFFECTS, EDUCATION [id number]/16/2017 CAFFEINE CAFFEINE USE?YES HOW OFTEN AND HOW MUCH? 12 CUPS PER DAY PROTESTANT [id number] JEWISH LEARNING BARRIERS / SPECIAL NEEDS VISION IMPAIRED?YES :CORRECTIVE LENSES READINESS TO LEARN?YES SPECIAL DEVICES?NO PAIN CLINIC PFS, CLERGY, PUBLIC HEALTH REFERRALS PFS REFERRAL NEEDED?NO CLERGY REFERRAL NEEDED?NO PUBLIC HEALTH REFERRAL NEEDED?NO WAS THE PROVIDER NOTIFIED OF ANY PERTINENT INFO?YES HAS THE PATIENT BEEN EDUCATED REGARDING HIS/HER PLAN OF CARE?YES HAS THE PATIENT BEEN EDUCATED REGARDING PAIN, THE RISK FOR PAIN, THE IMPORTANCE OF EFFECTIVE PAIN MANAGEMENT, AND THE PAIN ASSESSMENT PROCESS?YES REVIEWED BY: ANTOINE. PATIENT: ____. ADVANCE DIRECTIVES HEALTH CARE PROXY?NO WOULD YOU LIKE MORE INFORMATION?YES REVIEW OF SYSTEMS REVIEWED BY: PROVIDER: ALESSIA RUVALCABA . CONSTITUTIONAL: ANY CHANGE IN YOUR MEDICAL CONDITION? NO . CHILLS NO . FEVER NO . INFECTION: DO YOU HAVE NEW INFECTIONS? NO . DO YOU HAVE HISTORY OF MRSA? NO . MUSCULOSKELETAL: ANY NEW PATTERNS OF PAIN OR NUMBNESS? NO . GASTROENTEROLOGY: ANY NEW CHANGE IN BOWEL CONTROL? NO . GENITOURINARY: ANY NEW CHANGE IN BLADDER CONTROL? NO . IS THERE A CHANCE YOU COULD BE ? NO . HEMATOLOGY/LYMPH: DO YOU TAKE ANY BLOOD THINNERS? (FOR EXAMPLE- COUMADIN, PLAVIX, AGGRENOX, PLATEL, PRADAXA, OR XARELTO) NO . WHEN WAS YOUR LAST DOSE? DATE: TIME: . NEUROLOGY: HAVE YOU FALLEN IN THE PAST 6 MONTHS? NO . ANY NEW EXTREMITY NUMBNESS OR WEAKNESS? NO . CARDIOLOGY: DO YOU HAVE A PACEMAKER OR DEFIBRILLATOR? NO . RESPIRATORY: HAVE YOU BEEN SICK IN THE PAST WEEK? NO . FEVER NO . FLU LIKE SYMPTOMS? NO . COUGH NO . INTEGUMENTARY: DO YOU HAVE ANY RASHES OR OPEN SORES? NO . ALLERGIC/IMMUNO: ARE YOU ALLERGIC TO SHELLFISH OR IV DYE? NO . ANY NEW ALLERGIES? NO . PSYCHIATRIC: DO YOU HAVE THOUGHTS OF HURTING YOURSELF OR SOMEONE ELSE? NO . ARE YOU ABUSED, NEGLECTED, OR IN AN UNSAFE ENVIRONMENT? NO . ENDOCRINOLOGY: ARE YOU DIABETIC? NO . OTHER: DO YOU NEED ANY PRESCRIPTIONS? YES . IF YES, PLEASE LIST: MORPHINE . ANY NEW PROBLEMS WITH YOUR MEDICATIONS? NO . WHEN DID YOU LAST EAT? ____ . WHEN DID YOU LAST DRINK? ____ . WHAT DID YOU LAST DRINK? ____ . NAME OF PERSON DRIVING YOU HOME? ____ . DO YOU HAVE ANY OTHER QUESTIONS OR CONCERNS NO . VITAL SIGNS WT 241.6 LBS, HT 6'0, BMI 32.76 INDEX, BP 154/85 MM HG, HR 58 /MIN, RR 18 /MIN, TEMP 98.1 F, OXYGEN SAT % 97%, NA INITIALS SC 10:33, REVIEWED BY: BETHANY. EXAMINATION GENERAL EXAMINATION: GENERAL APPEARANCE:ALERT/ORIENTED. PSYCHAFFECT NORMAL. LUNGS:LUNG SINGH ARE CLEAR TO AUSCULTATION BILATERALLY. GOOD MOVEMENT OF AIR. HEART:S1, S2 IN A REGULAR RATE AND RHYTHM. NO SIGNIFICANT MURMURS, RUBS OR GALLOPS NOTED. CERVICAL SPINE/NECK: RANGE OF MOTION OF NECK:NORMAL IN ALL DIRECTIONS. VERTEBRAL SPINE TENDERNESS:TENDER OVER CERVICAL AXIS AND PARASPINALS. TRAPEZIUS TENDERNESS:PRESENT BILATERALLY. ASSESSMENTS CERVICAL SPINAL STENOSIS - M48.02 (PRIMARY) CHRONIC PRESCRIPTION OPIATE USE - Z79.891 TREATMENT CERVICAL SPINAL STENOSIS REFILL MORPHINE SULFATE TABLET, 15 MG, 1 TABLET NEEDED, ORALLY, Q4-6H PRN MDD2, 30 DAY(S), 45, REFILLS 0 NOTES: C4/5-C5/6 CERVICAL EPIDURAL. PREVENTIVE MEDICINE PAIN CLINIC TEACHING: PROCEDURE TEACHING PRE-PROCEDURE TEACHING DONE AND QUESTIONS ANSWERED. PATIENT VERBALIZES UNDERSTANDING.. PROCEDURE CODES FA211 ESTABILISHED PATIENT [facility] CHARGE G8730 PAIN ASSESS POS TOOL F/U PLAN DOC G8427 DOC MEDS VERIFIED W/PT OR RE DISPOSITION & COMMUNICATION FOLLOW UP 2WK POST (REASON: C4/5-C5/6 CERVICAL EPIDURAL) ELECTRONICALLY SIGNED BY PEG ANDERSON ON 09/13/2016 AT 11:46 AM EDT DISCLAIMER : THIS IS A VISIT SUMMARY EXTRACTED FROM THE [employer] CHART. IT IS NOT A COPY OF THE [employer] PROGRESS NOTE. KEITH
== END ==
LOC: M PAIN 10:00
PROVIDERS: ATTEND Nurse Practitioner Family
DX: G89.29 Other chronic pain (principal); M48.02 Spinal stenosis, cervical region; K21.9 Gastro-esophageal reflux disease without esophagitis; F17.210 Nicotine dependence, cigarettes, uncomplicated; Z91.030 Bee allergy status; Z88.8 Allergy status to other drugs, medicaments and biological substances; Z79.899 Other long term (current) drug therapy

== ENCOUNTER → 2016-09-18 | Outpatient (CLI) | payer MEDICARE, OTHER ==
[~2016-09-18] MED LIST changes: +ISOVUE-M 300 61% 15ML VIAL (Q9967) As Ordered ONE; +LIDOCAINE 1% SDV INJ 30 ML VIAL As Ordered ONE; +methylPREDNISolone SUSP 40 MG/ML (DEPO-medrol) VIAL (J1030) As Ordered ONE
--- NOTE | 2016-09-18 14:02 | REP ---
PARTIAL CERVICAL SPINE SERIES: Two views. HISTORY: Cervical epidural injection for pain. 11 seconds of fluoroscopy time is reported. FINDINGS: A sequence of two last image hold fluoro spot views of the cervical spine document needle position and contrast injection associated with cervical injection procedure. Signed by Bry Ivy MD 09/18/2016 04:34 P
--- NOTE | 2016-10-02 01:40 | ECWPNPC ---
PATIENT NAME: KEMAR SEGURA : 1955 GENDER: MALE VISIT DATE: 09/18/2016 DISCHARGE DATE: 09/18/16 1305 VISIT LOCKED DATE TIME: PHYSICIAN: ANNAMARIE KELLEY RESOURCE: ANNAMARIE KELLEY REASON FOR APPOINTMENT 1. CE, C4-5/C5-6 HISTORY OF PRESENT ILLNESS HISTORY OF PRESENT ILLNESS: PAIN THE PATIENT DESCRIBES THE PAIN... FALL RISK SCREENING: SCREENING :NO FALLS IN THE PAST YEAR CURRENT MEDICATIONS TAKING VITAMIN B-COMPLEX TABLET ORALLY DAILY, NOTES: 09/17/16 0800 TAKING IBUPROFEN 600 MG TABLET 1 TABLET ORALLY THREE TIMES A DAY NEEDED, NOTES: 09/17/16 230 TAKING VOLTAREN 1 % GEL TRANSDERMAL TAKING MORPHINE SULFATE 15 MG TABLET 1 TABLET ORALLY EVERY 6-8 HRS PRN PAIN MDD=2, NOTES: 09/17/162299 TAKING VITAMIN D 2000 UNIT TABLET 1 TABLET ORALLY ONCE A DAY, NOTES: 09/17/16 08 TAKING FISH OIL 1000 MG CAPSULE 1 CAPSULE ORALLY ONCE A DAY, NOTES: 09/17/16799 TAKING ZANAFLEX 4 MG TABLET 1 TABLET NEEDED ORALLY THREE TIMES A DAY, NOTES: 09/17/162299 NOT-TAKING LIDOCAINE HCL 5 % OINTMENT EXTERNALLY NOT-TAKING LISINOPRIL 10 MG TABLET 1 TABLET ORALLY ONCE A DAY NOT-TAKING CRESTOR 5 MG TABLET 1 TABLET ORALLY ONCE A DAY NOT-TAKING HYDROCHLOROTHIAZIDE 12.5 MG TABLET 1 TABLET IN THE MORNING ORALLY ONCE A DAY NOT-TAKING CYMBALTA 20 MG CAPSULE DELAYED RELEASE PARTICLES 1 CAPSULE ORALLY TWICE A DAY NOT-TAKING LEVOTHYROXINE SODIUM 75 MCG TABLET 1 TABLET ON AN EMPTY STOMACH IN THE MORNING ORALLY ONCE A DAY DISCONTINUED FISH OIL 1000 MG CAPSULE 1 CAPSULE ORALLY ONCE A DAY DISCONTINUED VITAMIN D 2000 UNIT TABLET 1 TABLET ORALLY DAILY DISCONTINUED VOLTAREN 1 % GEL 1 DOSE TRANSDERMAL EVERY 6- 8 HOURS NEEDED DISCONTINUED ZANAFLEX 4 MG TABLET 1 ORALLY EVERY 8 HRS PRN MUSCLE SPASM PAIN DISCONTINUED MORPHINE SULFATE 15 MG TABLET 1 TABLET NEEDED ORALLY Q4-6H PRN MDD2 MEDICATION LIST REVIEWED AND RECONCILED WITH THE PATIENT PAST MEDICAL HISTORY GERD CLUB FEET AND HAD BRACES AND CRUTCHES ALLERGIES BEE STINGS: HIVES,ITCHING NAPROSYN: HIVES, ITCHING SURGICAL HISTORY LUMBAR FUSION L-5 S1 HOSPITALIZATION/MAJOR DIAGNOSTIC PROCEDURE PNEUMONIA 2012 REVIEW OF SYSTEMS REVIEWED BY: PROVIDER: . CONSTITUTIONAL: ANY CHANGE IN YOUR MEDICAL CONDITION? NO . CHILLS NO . FEVER NO . INFECTION: DO YOU HAVE NEW INFECTIONS? NO . DO YOU HAVE HISTORY OF MRSA? NO . MUSCULOSKELETAL: ANY NEW PATTERNS OF PAIN OR NUMBNESS? YES, LOW BACK PAIN RADIATES DOWN RIGHT LEG. . GASTROENTEROLOGY: ANY NEW CHANGE IN BOWEL CONTROL? NO . GENITOURINARY: ANY NEW CHANGE IN BLADDER CONTROL? NO . IS THERE A CHANCE YOU COULD BE ? NO . HEMATOLOGY/LYMPH: DO YOU TAKE ANY BLOOD THINNERS? (FOR EXAMPLE- COUMADIN, PLAVIX, AGGRENOX, PLATEL, PRADAXA, OR XARELTO) NO . WHEN WAS YOUR LAST DOSE? DATE: TIME: . NEUROLOGY: HAVE YOU FALLEN IN THE PAST 6 MONTHS? NO . ANY NEW EXTREMITY NUMBNESS OR WEAKNESS? NO . CARDIOLOGY: DO YOU HAVE A PACEMAKER OR DEFIBRILLATOR? NO . RESPIRATORY: HAVE YOU BEEN SICK IN THE PAST WEEK? NO . FEVER NO . FLU LIKE SYMPTOMS? NO . COUGH NO . INTEGUMENTARY: DO YOU HAVE ANY RASHES OR OPEN SORES? NO . ALLERGIC/IMMUNO: ARE YOU ALLERGIC TO SHELLFISH OR IV DYE? NO . ANY NEW ALLERGIES? NO . PSYCHIATRIC: DO YOU HAVE THOUGHTS OF HURTING YOURSELF OR SOMEONE ELSE? NO . ARE YOU ABUSED, NEGLECTED, OR IN AN UNSAFE ENVIRONMENT? NO . ENDOCRINOLOGY: ARE YOU DIABETIC? NO . OTHER: DO YOU NEED ANY PRESCRIPTIONS? NO . IF YES, PLEASE LIST: ____ . ANY NEW PROBLEMS WITH YOUR MEDICATIONS? NO . WHEN DID YOU LAST EAT? 09/17/16 1900 . WHEN DID YOU LAST DRINK? 09/18/16 0700 . WHAT DID YOU LAST DRINK? WATER . NAME OF PERSON DRIVING YOU HOME? STEFANY . DO YOU HAVE ANY OTHER QUESTIONS OR CONCERNS YES, NEUROPATHY OF FEET. . VITAL SIGNS WT 244.4 LBS, HT 6'0, BMI 33.14 INDEX, BP 132/70 MM HG, HR 67 /MIN, RR 16 /MIN, TEMP 98.0 F, OXYGEN SAT % 96%, NA INITIALS TL 1046, REVIEWED BY: CM. 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 ANNAMARIE KELLEY WELDER RAILCAR MECHANIC NONE ANESTHESIA LOCAL PRE PROCEDURE NOTE THE PATIENT HAS A HISTORY OF CHRONIC CERVICAL PAIN. I EVALUATE THE PATIENT AND REVIEWED THE CHART. I WENT OVER THE RISKS, ALTERNATIVES, AND BENEFITS ASSOCIATED WITH THIS PROCEDURE. THE PATIENT WOULD LIKE TO PROCEED AND GIVE CONSENT TO PERFORMED THE PROCEDURE. THE PATIENT DENIES UNEXPLAINABLE WEIGHT LOSS, FEVER, CHILLS, OR NEW CHANGES IN URINARY OR BOWEL CONTROL DESCRIPTION OF PROCEDURE THE PATIENT WAS BROUGHT TO THE PROCEDURE ROOM AND PLACED IN THE PRONE POSITION. THE CERVICOTHORACIC AREA WAS CLEANED WITH BETADINE SOLUTION AND DRAPED ASEPTICALLY. THE PROCEDURE WAS DONE UNDER STERILE CONDITIONS. I CHECKED LATERALITY AND THE LEVEL WHERE THE PROCEDURE WAS GOING TO BE PERFORMED WITH THE PATIENT AND THE SUPPORTING STAFF AT THE MOMENT OF THE TIME OUT IN THE PROCEDURE ROOM. UNDER FLUOROSCOPIC GUIDANCE, THE TARGET WAS SELECTED AT THE INTERLAMINAR LEVEL OF C7-T1. LIDOCAINE WAS USED TO NUMB THE SKIN AND THE SUBCUTANEOUS TISSUE BELOW IT. EPIDURAL TUOHY NEEDLE 17-GAUGE WAS ADVANCED UNDER FLUOROSCOPIC GUIDANCE AND FOLLOWING PATIENT FEEDBACK UNTIL THE EPIDURAL SPACE WAS REACHED 10 CM DEEP INTO THE SKIN BY THE LOSS OF RESISTANCE TECHNIQUE. ISOVUE M DYE 30%, 0.25 ML, WAS INJECTED SHOWING ADEQUATE SPREAD OF THE DYE. THEN, A SOLUTION OF 3 ML OF NORMAL SALINE WITH DEPO-MEDROL 60 MG WAS INJECTED SLOWLY FOLLOWING PATIENT FEEDBACK. THERE WAS NO EVIDENCE OF BLOOD, PARESTHESIA OR CEREBROSPINAL FLUID DURING THE PROCEDURE. THE PATIENT WAS SENT TO THE RECOVERY ROOM. THE PATIENT WAS MOVING THE EXTREMITIES AND DOING WELL. THERE WAS NO COMPLICATION DURING THE PROCEDURE. FLUOROSCOPY TIME WAS 11 SECONDS POST PROCEDURE NOTE THE PATIENT WILL BE SEEN IN A FOLLOW UP IN THE NEXT FEW WEEKS. INSTRUCTIONS WERE GIVEN, QUESTIONS WERE ANSWERED, AND THE PATIENT EXPRESSED UNDERSTANDING AND AGREES WITH THE PLAN. I, LEE FINNEY, DOCUMENTED THE ABOVE INFORMATION ACTING A SCRIBE FOR DR. KELLEY. I, DR. KELLEY, HAVE REVIEWED THE ABOVE DOCUMENT, SCRIBED BY LEE FINNEY, AND I VERIFY THAT IT IS ACCURATE DIAGNOSTIC IMAGING [facility] FLUORO GUIDE SPINE INJECTION (PAIN)[id number] PROCEDURE CODES 34260 CERVICAL/THORACIC W/ IMAGING 6045F RADXPS IN END [id number] PXD DISPOSITION & COMMUNICATION FOLLOW UP 3 WEEKS ELECTRONICALLY SIGNED BY ANNAMARIE KELLEY MD ON 10/01/2016 AT 11:25 AM EDT DISCLAIMER : THIS IS A VISIT SUMMARY EXTRACTED FROM THE [employer] CHART. IT IS NOT A COPY OF THE [employer] PROGRESS NOTE. KEITH
== END ==
LOC: M PAIN 10:20
PROVIDERS: ATTEND Anesthesiology
DX: G89.29 Other chronic pain (principal); M50.13 Cervical disc disorder with radiculopathy, cervicothoracic region; K21.9 Gastro-esophageal reflux disease without esophagitis; Z91.030 Bee allergy status; Z88.6 Allergy status to analgesic agent; Z79.891 Long term (current) use of opiate analgesic; Z79.899 Other long term (current) drug therapy
CPT/HCPCS: 62321; J1030; Q9967

== ENCOUNTER → 2016-11-30 | Outpatient (CLI) | payer MEDICARE, OTHER ==
[~2016-11-30] MED LIST changes: -ISOVUE-M 300 61% 15ML VIAL (Q9967) As Ordered ONE; -LIDOCAINE 1% SDV INJ 30 ML VIAL As Ordered ONE; -methylPREDNISolone SUSP 40 MG/ML (DEPO-medrol) VIAL (J1030) As Ordered ONE
--- NOTE | 2016-12-20 00:25 | ECWPNPC ---
PATIENT NAME: KEMAR SEGURA : 1955 GENDER: MALE VISIT DATE: 11/30/2016 DISCHARGE DATE: 11/30/16 1142 VISIT LOCKED DATE TIME: PHYSICIAN: ALESSIA MATHEWS RESOURCE: ALESSIA MATHEWS REASON FOR APPOINTMENT 1. BACK HISTORY OF PRESENT ILLNESS HISTORY OF PRESENT ILLNESS: HERE FOR POST PROCEDURE F/U.HAD BATSHEVA.REPORTS NO IMPROVEMENT IN PAIN RATING PAIN VAS 3/10.WORSE AREA OF PAIN IS LOW BACK.DESCRIBES PAIN TENDER AND SORE.REVIEWED MRI LUMBAR SPINE AND CERVICAL SPINE DONE 07-09-16.USING MSIR 15MG PRN AND SPORADICALLY WITH GOOD EFFECT.DENIES ADVERSE EFFECTS.FEELS PAIN HAS GOTTEN WORSE SINCE LAST VISIT. PAIN THE PATIENT DESCRIBES THE PAIN... THE PATIENT DESCRIBES THE PAIN... THE PATIENT DESCRIBES THE PAIN... THE PATIENT DESCRIBES THE PAIN... THE PATIENT DESCRIBES THE PAIN... FALL RISK SCREENING: SCREENING :NO FALLS IN THE PAST YEAR CURRENT MEDICATIONS TAKING VITAMIN B-COMPLEX TABLET ORALLY DAILY, NOTES: 09/17/16 0800 TAKING IBUPROFEN 600 MG TABLET 1 TABLET ORALLY THREE TIMES A DAY NEEDED, NOTES: 09/17/16 2300 TAKING VOLTAREN 1 % GEL TRANSDERMAL TAKING MORPHINE SULFATE 15 MG TABLET 1 TABLET ORALLY EVERY 6-8 HRS PRN PAIN MDD=2, NOTES: 09/17/16 2300 TAKING VITAMIN D 2000 UNIT TABLET 1 TABLET ORALLY ONCE A DAY, NOTES: 09/17/16 0800 TAKING FISH OIL 1000 MG CAPSULE 1 CAPSULE ORALLY ONCE A DAY, NOTES: 09/17/16 0800 TAKING ZANAFLEX 4 MG TABLET 1 TABLET NEEDED ORALLY THREE TIMES A DAY TAKING LIDOCAINE HCL 5 % OINTMENT EXTERNALLY TAKING LISINOPRIL 10 MG TABLET 1 TABLET ORALLY ONCE A DAY TAKING CRESTOR 5 MG TABLET 1 TABLET ORALLY ONCE A DAY TAKING HYDROCHLOROTHIAZIDE 12.5 MG TABLET 1 TABLET IN THE MORNING ORALLY ONCE A DAY TAKING CYMBALTA 20 MG CAPSULE DELAYED RELEASE PARTICLES 1 CAPSULE ORALLY TWICE A DAY TAKING LEVOTHYROXINE SODIUM 75 MCG TABLET 1 TABLET ON AN EMPTY STOMACH IN THE MORNING ORALLY ONCE A DAY MEDICATION LIST REVIEWED AND RECONCILED WITH THE PATIENT PAST MEDICAL HISTORY GERD CLUB FEET AND HAD BRACES AND CRUTCHES ALLERGIES BEE STINGS: HIVES,ITCHING NAPROSYN: HIVES, ITCHING SOCIAL HISTORY GENERAL: TOBACCO USE ARE YOU A:CURRENT SMOKER ARE YOU INTERESTED IN QUITTING?NOT READY TO QUIT COUNSELED THE PATIENT ON SMOKING EFFECTS, EDUCATION [id number]/29/2017 HOW MANY CIGARETTES A DAY DO YOU SMOKE?31 OR MORE 2 PACKS PER DAY HOW SOON AFTER YOU WAKE UP DO YOU SMOKE YOUR FIRST CIGARETTE?WITHIN 5 MIN HOW OFTEN DO YOU SMOKE CIGARETTES?EVERY DAY PATIENT COUNSELED ON THE DANGERS OF TOBACCO USE AND URGED TO QUIT:11/30/2016 CAFFEINE CAFFEINE USE?YES HOW OFTEN AND HOW MUCH? 12 CUPS PER DAY RESTORATIONIST [id number] RESTORATIONIST LEARNING BARRIERS / SPECIAL NEEDS VISION IMPAIRED?YES :CORRECTIVE LENSES READINESS TO LEARN?YES SPECIAL DEVICES?NO PAIN CLINIC PFS, CLERGY, PUBLIC HEALTH REFERRALS PFS REFERRAL NEEDED?NO CLERGY REFERRAL NEEDED?NO PUBLIC HEALTH REFERRAL NEEDED?NO WAS THE PROVIDER NOTIFIED OF ANY PERTINENT INFO?YES HAS THE PATIENT BEEN EDUCATED REGARDING HIS/HER PLAN OF CARE?YES HAS THE PATIENT BEEN EDUCATED REGARDING PAIN, THE RISK FOR PAIN, THE IMPORTANCE OF EFFECTIVE PAIN MANAGEMENT, AND THE PAIN ASSESSMENT PROCESS?YES REVIEWED BY: ANTOINE. PATIENT: ____. ADVANCE DIRECTIVES HEALTH CARE PROXY?NO WOULD YOU LIKE MORE INFORMATION?YES REVIEW OF SYSTEMS REVIEWED BY: PROVIDER: ALESSIA RUVALCABA . CONSTITUTIONAL: ANY CHANGE IN YOUR MEDICAL CONDITION? NO . CHILLS NO . FEVER NO . INFECTION: DO YOU HAVE NEW INFECTIONS? NO . DO YOU HAVE HISTORY OF MRSA? NO . MUSCULOSKELETAL: ANY NEW PATTERNS OF PAIN OR NUMBNESS? NO . GASTROENTEROLOGY: ANY NEW CHANGE IN BOWEL CONTROL? NO . GENITOURINARY: ANY NEW CHANGE IN BLADDER CONTROL? NO . IS THERE A CHANCE YOU COULD BE ? NO . HEMATOLOGY/LYMPH: DO YOU TAKE ANY BLOOD THINNERS? (FOR EXAMPLE- COUMADIN, PLAVIX, AGGRENOX, PLATEL, PRADAXA, OR XARELTO) NO . WHEN WAS YOUR LAST DOSE? DATE: TIME: . NEUROLOGY: HAVE YOU FALLEN IN THE PAST 6 MONTHS? NO . ANY NEW EXTREMITY NUMBNESS OR WEAKNESS? NO . CARDIOLOGY: DO YOU HAVE A PACEMAKER OR DEFIBRILLATOR? NO . RESPIRATORY: HAVE YOU BEEN SICK IN THE PAST WEEK? NO . FEVER NO . FLU LIKE SYMPTOMS? NO . COUGH NO . INTEGUMENTARY: DO YOU HAVE ANY RASHES OR OPEN SORES? NO . ALLERGIC/IMMUNO: ARE YOU ALLERGIC TO SHELLFISH OR IV DYE? NO . ANY NEW ALLERGIES? NO . PSYCHIATRIC: DO YOU HAVE THOUGHTS OF HURTING YOURSELF OR SOMEONE ELSE? NO . ARE YOU ABUSED, NEGLECTED, OR IN AN UNSAFE ENVIRONMENT? NO . ENDOCRINOLOGY: ARE YOU DIABETIC? NO . OTHER: DO YOU NEED ANY PRESCRIPTIONS? YES . IF YES, PLEASE LIST: ____MORPHINE, IBUPROFEN . ANY NEW PROBLEMS WITH YOUR MEDICATIONS? NO . WHEN DID YOU LAST EAT? ____ . WHEN DID YOU LAST DRINK? ____ . WHAT DID YOU LAST DRINK? ____ . NAME OF PERSON DRIVING YOU HOME? ____ . DO YOU HAVE ANY OTHER QUESTIONS OR CONCERNS NO . VITAL SIGNS WT 242 LBS, HT 6'0, BMI 32.82 INDEX, BP 151/80 MM HG, HR 64 /MIN, RR 16 /MIN, TEMP 99.2 F, OXYGEN SAT % 97%, SAFE IN ENV? (Y/N) YES, REVIEWED BY: ARTHUR. EXAMINATION GENERAL EXAMINATION: LUNGS:LUNG SOUNDS ARE CLEAR. HEART:HEART RATE REGULAR. MUSCULOSKELETAL:*, PALPATION: POSITIVE FOR PAIN OVER L/S SPINE. POSITIVE FOR PAIN OVER L/S PARASPINALS, MUSCLE STRENGTH TESTING 5/5 BILATERAL LOWER EXTREMITIES.POINT TENDERNESS OVER BILATERAL SIJ. DIAGNOSTIC DATA-MRI [id number] MRI-L/S [id number]-REVIEWED. ASSESSMENTS LUMBOSACRAL SPONDYLOSIS WITH RADICULOPATHY - M47.27 (PRIMARY) SACROILIAC JOINT PAIN - M53.3, CERVICAL SPINAL STENOSIS - M48.02 TREATMENT OTHERS REFILL IBUPROFEN TABLET, 600 MG, 1 TABLET, ORALLY, THREE TIMES A DAY NEEDED, 30 DAY(S), 45, REFILLS 1, NOTES: 09/17/162299 CONTINUE VOLTAREN GEL, 1 %, TRANSDERMAL REFILL MORPHINE SULFATE TABLET, 15 MG, 1 TABLET, ORALLY, EVERY 6-8 HRS PRN PAIN MDD=2, 30 DAYS, 30, REFILLS 0, NOTES: 09/17/162299 CONTINUE ZANAFLEX TABLET, 4 MG, 1 TABLET NEEDED, ORALLY, THREE TIMES A DAY NOTES: BILAT SIJBILAT. L4/5-L5/S1 THER.FACET. PROCEDURE CODES FA211 ESTABILISHED PATIENT [facility] FACILITY CHARGE F2691 PAIN ASSESS POS TOOL F/U PLAN DOC G8427 DOC MEDS VERIFIED W/PT OR RE DISPOSITION & COMMUNICATION FOLLOW UP 2WK POST BOTH PROC. (REASON: BILAT. L4/5-L5/S1 THER.FACET/BILAT SIJ) ELECTRONICALLY SIGNED BY PEG ANDERSON ON 12/19/2016 AT 07:25 PM EDT DISCLAIMER : THIS IS A VISIT SUMMARY EXTRACTED FROM THE [employer] CHART. IT IS NOT A COPY OF THE [employer] PROGRESS NOTE. CHAITANYAD
== END ==
LOC: M PAIN 10:45
PROVIDERS: ATTEND Nurse Practitioner Family
DX: G89.29 Other chronic pain (principal); M47.27 Other spondylosis with radiculopathy, lumbosacral region; M53.3 Sacrococcygeal disorders, not elsewhere classified; M48.02 Spinal stenosis, cervical region; K21.9 Gastro-esophageal reflux disease without esophagitis; F17.210 Nicotine dependence, cigarettes, uncomplicated; Z91.030 Bee allergy status; Z88.8 Allergy status to other drugs, medicaments and biological substances; Z79.891 Long term (current) use of opiate analgesic; Z79.899 Other long term (current) drug therapy

== ENCOUNTER → 2016-12-12 | Outpatient (CLI) | payer MEDICARE, OTHER ==
[~2016-12-12] MED LIST changes: +BUPIVACAINE HCL 0.25% 30 ML VIAL As Ordered ONE; +ISOVUE-M 300 61% 15ML VIAL (Q9967) As Ordered ONE; +LIDOCAINE 1% SDV INJ 30 ML VIAL As Ordered ONE; +TRIAMCINOLONE ACETONIDE SUSP 40 MG/ML VIAL (J3301) As Ordered ONE
--- NOTE | 2016-12-12 14:52 | REP ---
Partial lumbar spine series: Four views. . History: Injection procedure for pain. 43 seconds of fluoroscopy time is reported. Findings: A sequence of four fluoroscopically obtained last image hold procedural spot radiographs of the lumbar spine document needle position and contrast injection associated with injection procedure. Signed by Bry Ivy MD 12/12/2016 02:43 P
--- NOTE | 2016-12-18 01:13 | ECWPNPC ---
PATIENT NAME: KEMAR SEGURA : 1955 GENDER: MALE VISIT DATE: 12/12/2016 DISCHARGE DATE: 12/12/16 1205 VISIT LOCKED DATE TIME: PHYSICIAN: ANNAMARIE KELLEY RESOURCE: ANNAMARIE KELLEY REASON FOR APPOINTMENT 1. BILAT. L4/5-L5/S1 THER.FACET HISTORY OF PRESENT ILLNESS HISTORY OF PRESENT ILLNESS: PAIN THE PATIENT DESCRIBES THE PAIN... FALL RISK SCREENING: SCREENING :NO FALLS IN THE PAST YEAR CURRENT MEDICATIONS TAKING VITAMIN B-COMPLEX TABLET ORALLY DAILY, NOTES: 12-11-16899 TAKING VITAMIN D 2000 UNIT TABLET 1 TABLET ORALLY ONCE A DAY, NOTES: 12-11-16899 TAKING FISH OIL 1000 MG CAPSULE 1 CAPSULE ORALLY ONCE A DAY, NOTES: 12-11-16899 TAKING IBUPROFEN 600 MG TABLET 1 TABLET ORALLY THREE TIMES A DAY NEEDED, NOTES: 12-11-16-0 TAKING VOLTAREN 1 % GEL TRANSDERMAL , NOTES: NOT LATELY TAKING MORPHINE SULFATE 15 MG TABLET 1 TABLET ORALLY EVERY 6-8 HRS PRN PAIN MDD=2, NOTES: 12-11-16 TAKING ZANAFLEX 4 MG TABLET 1 TABLET NEEDED ORALLY THREE TIMES A DAY, NOTES: 12-11-16 NOT-TAKING LIDOCAINE HCL 5 % OINTMENT EXTERNALLY , NOTES: NOT LATELY NOT-TAKING LISINOPRIL 10 MG TABLET 1 TABLET ORALLY ONCE A DAY, NOTES: NOT-TAKING CRESTOR 5 MG TABLET 1 TABLET ORALLY ONCE A DAY NOT-TAKING HYDROCHLOROTHIAZIDE 12.5 MG TABLET 1 TABLET IN THE MORNING ORALLY ONCE A DAY NOT-TAKING CYMBALTA 20 MG CAPSULE DELAYED RELEASE PARTICLES 1 CAPSULE ORALLY TWICE A DAY NOT-TAKING LEVOTHYROXINE SODIUM 75 MCG TABLET 1 TABLET ON AN EMPTY STOMACH IN THE MORNING ORALLY ONCE A DAY MEDICATION LIST REVIEWED AND RECONCILED WITH THE PATIENT PAST MEDICAL HISTORY GERD CLUB FEET INFANT AND HAD BRACES AND CRUTCHES ALLERGIES BEE STINGS: HIVES,ITCHING NAPROSYN: HIVES, ITCHING SURGICAL HISTORY LUMBAR FUSION L-5 S1 HOSPITALIZATION/MAJOR DIAGNOSTIC PROCEDURE PNEUMONIA 2012 REVIEW OF SYSTEMS REVIEWED BY: PROVIDER: . CONSTITUTIONAL: ANY CHANGE IN YOUR MEDICAL CONDITION? NO . CHILLS NO . FEVER NO . INFECTION: DO YOU HAVE NEW INFECTIONS? NO . DO YOU HAVE HISTORY OF MRSA? NO . MUSCULOSKELETAL: ANY NEW PATTERNS OF PAIN OR NUMBNESS? NO . GASTROENTEROLOGY: ANY NEW CHANGE IN BOWEL CONTROL? NO . GENITOURINARY: ANY NEW CHANGE IN BLADDER CONTROL? NO . IS THERE A CHANCE YOU COULD BE ? NO . HEMATOLOGY/LYMPH: DO YOU TAKE ANY BLOOD THINNERS? (FOR EXAMPLE- COUMADIN, PLAVIX, AGGRENOX, PLATEL, PRADAXA, OR XARELTO) NO . WHEN WAS YOUR LAST DOSE? DATE: TIME: . NEUROLOGY: HAVE YOU FALLEN IN THE PAST 6 MONTHS? NO . ANY NEW EXTREMITY NUMBNESS OR WEAKNESS? NO . CARDIOLOGY: DO YOU HAVE A PACEMAKER OR DEFIBRILLATOR? NO . RESPIRATORY: HAVE YOU BEEN SICK IN THE PAST WEEK? NO . FEVER NO . FLU LIKE SYMPTOMS? NO . COUGH NO . INTEGUMENTARY: DO YOU HAVE ANY RASHES OR OPEN SORES? NO . ALLERGIC/IMMUNO: ARE YOU ALLERGIC TO SHELLFISH OR IV DYE? NO . ANY NEW ALLERGIES? NO . PSYCHIATRIC: DO YOU HAVE THOUGHTS OF HURTING YOURSELF OR SOMEONE ELSE? NO . ARE YOU ABUSED, NEGLECTED, OR IN AN UNSAFE ENVIRONMENT? NO . ENDOCRINOLOGY: ARE YOU DIABETIC? NO . OTHER: DO YOU NEED ANY PRESCRIPTIONS? NO . IF YES, PLEASE LIST: ____ . ANY NEW PROBLEMS WITH YOUR MEDICATIONS? NO . WHEN DID YOU LAST EAT? ____3 PM YESTERSDAY . WHEN DID YOU LAST DRINK? ____6 AM THIS MORNING . WHAT DID YOU LAST DRINK? WATER . NAME OF PERSON DRIVING YOU HOME? ____ . DO YOU HAVE ANY OTHER QUESTIONS OR CONCERNS NO . VITAL SIGNS WT 239 LBS, HT 6'0, BMI 32.41 INDEX, BP 145/79 MM HG, HR 66 /MIN, RR 18 /MIN, TEMP 98.0 F, OXYGEN SAT % 96%, SAFE IN ENV? (Y/N) YES, NA INITIALS SC 10:42, REVIEWED BY: KG. ASSESSMENTS SPONDYLOSIS OF LUMBAR REGION WITHOUT MYELOPATHY OR RADICULOPATHY - M47.816 (PRIMARY) SPONDYLOSIS OF LUMBOSACRAL REGION WITHOUT MYELOPATHY OR RADICULOPATHY - M47.817 PROCEDURES PN LUMBAR FACET BLOCK THERAPEUTIC PRE PROCEDURE DIAGNOSIS LUMBAR SPONDYLOSIS, LUMBOSACRAL SPONDYLOSIS POST PROCEDURE DIAGNOSIS LUMBAR SPONDYLOSIS, LUMBOSACRAL SPONDYLOSIS PROCEDURE BILATERAL L4-L5 AND BILATERAL L5-S1 LUMBAR FACET THERAPEUTIC BLOCK SURGEON DR. ANNAMARIE KELLEY LAB SCIENTIST NONE ANESTHESIA LOCAL PRE PROCEDURE NOTE THE PATIENT HAS A HISTORY OF CHRONIC LOW BACK PAIN. I EVALUATE THE PATIENT AND REVIEWED THE CHART. I WENT OVER THE RISKS, ALTERNATIVES, AND BENEFITS ASSOCIATED WITH THIS PROCEDURE. THE PATIENT WOULD LIKE TO PROCEED AND GIVE CONSENT TO PERFORMED THE PROCEDURE. THE PATIENT DENIES UNEXPLAINABLE WEIGHT LOSS, FEVER, CHILLS, OR NEW CHANGES IN URINARY OR BOWEL CONTROL DESCRIPTION OF PROCEDURE THE PATIENT WAS BROUGHT TO THE PROCEDURE ROOM AND PLACED IN THE PRONE POSITION. THE LUMBOSACRAL AREA WAS CLEANED WITH CHLORAPREP SOLUTION AND DRAPED ASEPTICALLY. THE PROCEDURE WAS DONE UNDER STERILE CONDITIONS. I CHECKED LATERALITY AND THE LEVEL WHERE THE PROCEDURE WAS GOING TO BE PERFORMED WITH THE PATIENT AND THE SUPPORTING STAFF AT THE MOMENT OF THE TIME OUT IN THE PROCEDURE ROOM. UNDER FLUOROSCOPIC GUIDANCE, THE TARGET POINT WAS SELECTED AT THE RIGHT AND LEFT L4-L5 AND RIGHT AND LEFT L5-S1 FACET JOINT. TARGET POINT WAS SELECTED AFTER LATERAL ROTATION AND TILT OF THE MAGNIFIER OF THE C-ARM. LIDOCAINE 0.5% WAS USED TO NUMB THE SKIN AND THE SUBCUTANEOUS TISSUE BELOW IT. SPINAL NEEDLES, 22-GAUGE, WERE ADVANCED UNDER FLUOROSCOPIC GUIDANCE AND FOLLOWING PATIENT FEEDBACK UNTIL THE TARGETS WERE TOUCHED. THE POSITION OF THE NEEDLES WAS VERIFIED WITH AP AND LATERAL VIEWS. AFTER PROPER POSITION OF THE NEEDLES WAS ACHIEVED, ISOVUE-M DYE 30% 0.1 ML WAS INJECTED SHOWING ADEQUATE SPREAD OF THE DYE. THEN A SOLUTION OF 1.9 ML OF BUPIVACAINE 0.125% OF KENALOG 10 MG WAS INJECTED AT EACH SITE. THERE WAS NO EVIDENCE OF BLOOD, PARESTHESIA OR CEREBROSPINAL FLUID DURING THE PROCEDURE. THE PATIENT WAS SENT TO THE RECOVERY ROOM. THE PATIENT WAS MOVING THE EXTREMITIES AND DOING WELL. THERE WAS NO COMPLICATION DURING THE PROCEDURE. FLUOROSCOPY TIME WAS 43 SECONDS POST PROCEDURE NOTE THE PATIENT WILL BE SEEN IN A FOLLOW UP IN THE NEXT FEW WEEKS. INSTRUCTIONS WERE GIVEN, QUESTIONS WERE ANSWERED, AND THE PATIENT EXPRESSED UNDERSTANDING AND AGREES WITH THE PLAN. I, LEE FINNEY, DOCUMENTED THE ABOVE INFORMATION ACTING A SCRIBE FOR DR. KELLEY. I HAVE REVIEWED THE ABOVE DOCUMENT, WRITTEN BY LEE ALVAREZ AND I VERIFY THAT IT IS ACCURATE DIAGNOSTIC IMAGING [facility] FACET BLOCK (PAIN)[id number] PROCEDURE CODES 03430 INJ PARAVERT F JNT L/S 1 LEV, MODIFIERS: 50 62150 INJ PARAVERT F JNT L/S 2 LEV, MODIFIERS: 50 6045F RADXPS IN END [id number] PXD DISPOSITION & COMMUNICATION FOLLOW UP 3 WEEKS ELECTRONICALLY SIGNED BY ANNAMARIE KELLEY MD ON 12/17/2016 AT 02:46 AM EDT DISCLAIMER : THIS IS A VISIT SUMMARY EXTRACTED FROM THE [facility] CHART. IT IS NOT A COPY OF THE [facility] PROGRESS NOTE. MTDD
== END ==
LOC: M PAIN 10:45
PROVIDERS: ATTEND Anesthesiology
DX: G89.29 Other chronic pain (principal); M47.816 Spondylosis without myelopathy or radiculopathy, lumbar region; M47.817 Spondylosis without myelopathy or radiculopathy, lumbosacral region; K21.9 Gastro-esophageal reflux disease without esophagitis; Z91.030 Bee allergy status; Z88.6 Allergy status to analgesic agent; Z79.891 Long term (current) use of opiate analgesic; Z79.899 Other long term (current) drug therapy
CPT/HCPCS: 64493; 64494; J3301; Q9967

== ENCOUNTER → 2016-12-19 | Outpatient (CLI) | payer MEDICARE, OTHER ==
--- NOTE | 2016-12-19 15:10 | REP ---
FLUOROSCOPIC GUIDANCE: The images were reviewed with Dr. Jimenez. The patient has a history of back pain. The portable C-arm was provided in the OR for Dr. Suarez for fluoroscopic guidance. Five intraoperative fluoroscopic spot films are obtained using last image hold technology for needle placement verification for bilateral sacroiliac joint injection. The films are on the PACS system and are available for review. 35 seconds of fluoroscopy time was utilized for this procedure. Reviewed by VITALIY Gray 12/19/2016 04:26 PEdited and Signed by Eugene Jimenez MD 12/19/2016 05:04 P
--- NOTE | 2016-12-23 23:55 | ECWPNPC ---
PATIENT NAME: KEMAR SEGURA : 1955 GENDER: MALE VISIT DATE: 12/19/2016 DISCHARGE DATE: 12/19/16 1001 VISIT LOCKED DATE TIME: PHYSICIAN: ANNAMARIE KELLEY RESOURCE: ANNAMARIE KELLEY REASON FOR APPOINTMENT 1. LIDIA SENA HISTORY OF PRESENT ILLNESS HISTORY OF PRESENT ILLNESS: PAIN THE PATIENT DESCRIBES THE PAIN... FALL RISK SCREENING: SCREENING :NO FALLS IN THE PAST YEAR CURRENT MEDICATIONS TAKING VITAMIN B-COMPLEX TABLET ORALLY DAILY, NOTES: 12/18 899 TAKING VITAMIN D 2000 UNIT TABLET 1 TABLET ORALLY ONCE A DAY, NOTES: 12/18 899 TAKING FISH OIL 1000 MG CAPSULE 1 CAPSULE ORALLY ONCE A DAY, NOTES: 12/18 899 TAKING IBUPROFEN 600 MG TABLET 1 TABLET ORALLY THREE TIMES A DAY NEEDED, NOTES: 12/18 1429 TAKING VOLTAREN 1 % GEL TRANSDERMAL , NOTES: NONE RECENT TAKING MORPHINE SULFATE 15 MG TABLET 1 TABLET ORALLY EVERY 6-8 HRS PRN PAIN MDD=2, NOTES: 12/18 1429 TAKING ZANAFLEX 4 MG TABLET 1 TABLET NEEDED ORALLY THREE TIMES A DAY, NOTES: 12-12 DISCONTINUED LIDOCAINE HCL 5 % OINTMENT EXTERNALLY , NOTES: NOT LATELY DISCONTINUED LISINOPRIL 10 MG TABLET 1 TABLET ORALLY ONCE A DAY, NOTES: DISCONTINUED CRESTOR 5 MG TABLET 1 TABLET ORALLY ONCE A DAY DISCONTINUED HYDROCHLOROTHIAZIDE 12.5 MG TABLET 1 TABLET IN THE MORNING ORALLY ONCE A DAY DISCONTINUED CYMBALTA 20 MG CAPSULE DELAYED RELEASE PARTICLES 1 CAPSULE ORALLY TWICE A DAY DISCONTINUED LEVOTHYROXINE SODIUM 75 MCG TABLET 1 TABLET ON AN EMPTY STOMACH IN THE MORNING ORALLY ONCE A DAY MEDICATION LIST REVIEWED AND RECONCILED WITH THE PATIENT PAST MEDICAL HISTORY GERD CLUB FEET INFANT AND HAD BRACES AND CRUTCHES LOW BACK PAIN ALLERGIES BEE STINGS: HIVES,ITCHING NAPROSYN: HIVES, ITCHING SOCIAL HISTORY GENERAL: TOBACCO USE ARE YOU A:CURRENT SMOKER ARE YOU INTERESTED IN QUITTING?NOT READY TO QUIT COUNSELED THE PATIENT ON SMOKING EFFECTS, EDUCATION [id number]/18/2017 HOW MANY CIGARETTES A DAY DO YOU SMOKE?31 OR MORE 2 PACKS PER DAY HOW SOON AFTER YOU WAKE UP DO YOU SMOKE YOUR FIRST CIGARETTE?WITHIN 5 MIN HOW OFTEN DO YOU SMOKE CIGARETTES?EVERY DAY PATIENT COUNSELED ON THE DANGERS OF TOBACCO USE AND URGED TO QUIT:12/19/2016 CAFFEINE CAFFEINE USE?YES HOW OFTEN AND HOW MUCH? 12 CUPS PER DAY CATHOLIC [id number] JUDAISM LEARNING BARRIERS / SPECIAL NEEDS VISION IMPAIRED?YES :CORRECTIVE LENSES READINESS TO LEARN?YES SPECIAL DEVICES?NO PAIN CLINIC PFS, CLERGY, PUBLIC HEALTH REFERRALS PFS REFERRAL NEEDED?NO CLERGY REFERRAL NEEDED?NO PUBLIC HEALTH REFERRAL NEEDED?NO WAS THE PROVIDER NOTIFIED OF ANY PERTINENT INFO?YES HAS THE PATIENT BEEN EDUCATED REGARDING HIS/HER PLAN OF CARE?YES HAS THE PATIENT BEEN EDUCATED REGARDING PAIN, THE RISK FOR PAIN, THE IMPORTANCE OF EFFECTIVE PAIN MANAGEMENT, AND THE PAIN ASSESSMENT PROCESS?YES REVIEWED BY: AD. PATIENT: ____. ADVANCE DIRECTIVES HEALTH CARE PROXY?NO WOULD YOU LIKE MORE INFORMATION?YES NO DOMESTIC VIOLENCE DO YOU FEEL SAFE IN YOUR ENVIRONMENT?YES REVIEW OF SYSTEMS REVIEWED BY: PROVIDER: . CONSTITUTIONAL: ANY CHANGE IN YOUR MEDICAL CONDITION? NO . CHILLS NO . FEVER NO . INFECTION: DO YOU HAVE NEW INFECTIONS? NO . DO YOU HAVE HISTORY OF MRSA? NO . MUSCULOSKELETAL: ANY NEW PATTERNS OF PAIN OR NUMBNESS? NO . GASTROENTEROLOGY: ANY NEW CHANGE IN BOWEL CONTROL? NO . GENITOURINARY: ANY NEW CHANGE IN BLADDER CONTROL? NO . IS THERE A CHANCE YOU COULD BE ? NO . HEMATOLOGY/LYMPH: DO YOU TAKE ANY BLOOD THINNERS? (FOR EXAMPLE- COUMADIN, PLAVIX, AGGRENOX, PLATEL, PRADAXA, OR XARELTO) NO . WHEN WAS YOUR LAST DOSE? DATE: TIME: . NEUROLOGY: HAVE YOU FALLEN IN THE PAST 6 MONTHS? NO . ANY NEW EXTREMITY NUMBNESS OR WEAKNESS? NO . CARDIOLOGY: DO YOU HAVE A PACEMAKER OR DEFIBRILLATOR? NO . RESPIRATORY: HAVE YOU BEEN SICK IN THE PAST WEEK? NO . FEVER NO . FLU LIKE SYMPTOMS? NO . COUGH NO . INTEGUMENTARY: DO YOU HAVE ANY RASHES OR OPEN SORES? NO . ALLERGIC/IMMUNO: ARE YOU ALLERGIC TO SHELLFISH OR IV DYE? NO . ANY NEW ALLERGIES? NO . PSYCHIATRIC: DO YOU HAVE THOUGHTS OF HURTING YOURSELF OR SOMEONE ELSE? NO . ARE YOU ABUSED, NEGLECTED, OR IN AN UNSAFE ENVIRONMENT? NO . ENDOCRINOLOGY: ARE YOU DIABETIC? NO . OTHER: DO YOU NEED ANY PRESCRIPTIONS? NO . IF YES, PLEASE LIST: ____ . ANY NEW PROBLEMS WITH YOUR MEDICATIONS? NO . WHEN DID YOU LAST EAT? 12/18/16 1500 . WHEN DID YOU LAST DRINK? 12/185 . WHAT DID YOU LAST DRINK? JUICES . NAME OF PERSON DRIVING YOU HOME? ADELA . DO YOU HAVE ANY OTHER QUESTIONS OR CONCERNS NO . VITAL SIGNS WT 242 LBS, HT 6'0, BMI 32.82 INDEX, BP 157/78 MM HG, HR 53 /MIN, RR 16 /MIN, TEMP 98.6 F, OXYGEN SAT % 96, REVIEWED BY: AD. ASSESSMENTS SACROILIITIS, NOT ELSEWHERE CLASSIFIED - M46.1 (PRIMARY) PROCEDURES PN SI PRE PROCEDURE DIAGNOSIS SACROILIITIS, SACROILIAC JOINT DYSFUNCTION POST PROCEDURE DIAGNOSIS SACROILIITIS, SACROILIAC JOINT DYSFUNCTION PROCEDURE BILATERAL SACROILIAC JOINT BLOCK SURGEON DR. ANNAMARIE KELLEY LENS AND FRAMES PRESCRIPTION CLERK NONE ANESTHESIA LOCAL PRE PROCEDURE NOTE PATIENT WITH HISTORY OF CHRONIC LOW BACK PAIN. I EVALUATED THE PATIENT AND REVIEWED THE CHART. I WENT OVER THE RISKS, ALTERNATIVES, AND BENEFITS ASSOCIATED WITH THIS PROCEDURE. THE PATIENT WOULD LIKE TO PROCEED AND GAVE CONSENT TO PERFORM THE PROCEDURE. THE PATIENT DENIES UNEXPLAINABLE WEIGHT LOSS, FEVER, CHILLS, OR NEW CHANGES IN URINARY OR BOWEL CONTROL DESCRIPTION OF PROCEDURE THE PATIENT WAS BROUGHT TO THE PROCEDURE ROOM AND PLACED IN THE PRONE POSITION. THE LUMBOSACRAL AREA WAS CLEANED WITH CHLORAPREP SOLUTION AND DRAPED ASEPTICALLY. THE PROCEDURE WAS DONE UNDER STERILE CONDITIONS. I CHECKED LATERALITY AND THE LEVEL WHERE THE PROCEDURE WAS GOING TO BE PERFORMED WITH THE PATIENT AND THE SUPPORTING STAFF AT THE MOMENT OF THE TIME OUT IN THE PROCEDURE ROOM. UNDER FLUOROSCOPIC GUIDANCE, TARGET POINT WAS SELECTED AT THE LOWER BORDER OF THE RIGHT AND LEFT SACROILIAC JOINT. TARGET POINT WAS SELECTED AFTER MEDIAL ROTATION AND TILT OF THE MAGNIFIER OF THE C-ARM. LIDOCAINE WAS USED TO NUMB THE SKIN AND SUBCUTANEOUS TISSUE BELOW IT. A SPINAL NEEDLE, 22-GAUGE, WAS ADVANCED UNDER FLUOROSCOPIC GUIDANCE AND FOLLOWING PATIENT FEEDBACK UNTIL THE TARGET AREA WAS TOUCHED. THE POSITION OF THE NEEDLE WAS VERIFIED WITH AP AND LATERAL VIEWS. AFTER PROPER POSITION OF THE NEEDLE WAS ACHIEVED, ISOVUE M DYE 30%, 0.25 ML, WAS INJECTED SHOWING SPREAD OF THE DYE. THEN, A SOLUTION OF 20 MG OF KENALOG WAS INJECTED IN RIGHT JOINT WITH 3 ML OF BUPIVACAINE 0.125%. THERE WAS NO EVIDENCE OF BLOOD, PARESTHESIA OR CEREBROSPINAL FLUID DURING THE PROCEDURE. THE PATIENT WAS SENT TO THE RECOVERY ROOM. THE PATIENT WAS MOVING THE EXTREMITIES AND DOING WELL. THERE WAS NO COMPLICATION DURING THE PROCEDURE. FLUOROSCOPY TIME WAS 35 SECONDS POST PROCEDURE NOTE THE PATIENT WILL BE SEEN IN A FOLLOW UP IN THE NEXT FEW WEEKS. INSTRUCTIONS WERE GIVEN, QUESTIONS WERE ANSWERED, AND THE PATIENT EXPRESSED UNDERSTANDING AND AGREED WITH THE PLAN. I, LEE FINNEY, DOCUMENTED THE ABOVE INFORMATION ACTING A SCRIBE FOR DR. KELLEY. I HAVE REVIEWED THE ABOVE DOCUMENT, WRITTEN BY LEE FINNEY SCRIBE AND I VERIFY THAT IT IS ACCURATE DIAGNOSTIC IMAGING [facility] FLUORO GUIDANCE (PAIN)[id number] PROCEDURE CODES 91699 INJECT SACROILIAC JOINT, MODIFIERS: 50 6045F RADXPS IN END [id number] PXD DISPOSITION & COMMUNICATION FOLLOW UP 3 WEEKS ELECTRONICALLY SIGNED BY ANNAMARIE KELLEY MD ON 12/23/2016 AT 01:06 PM EDT DISCLAIMER : THIS IS A VISIT SUMMARY EXTRACTED FROM THE [employer] CHART. IT IS NOT A COPY OF THE [employer] PROGRESS NOTE. MTDD
== END ==
LOC: M PAIN 08:30
PROVIDERS: ATTEND Anesthesiology
DX: G89.29 Other chronic pain (principal); M46.1 Sacroiliitis, not elsewhere classified; M53.88 Other specified dorsopathies, sacral and sacrococcygeal region; F17.210 Nicotine dependence, cigarettes, uncomplicated; Z91.030 Bee allergy status; Z88.8 Allergy status to other drugs, medicaments and biological substances; Z79.1 Long term (current) use of non-steroidal anti-inflammatories (NSAID); Z79.891 Long term (current) use of opiate analgesic; Z79.899 Other long term (current) drug therapy
CPT/HCPCS: G0260; J3301; Q9967

== ENCOUNTER → 2017-02-22 | Outpatient (CLI) | payer MEDICARE, OTHER | LOC: M PAIN 13:15 | DX: M48.02 Spinal stenosis, cervical region (principal); F17.210 Nicotine dependence, cigarettes, uncomplicated; Z88.8 Allergy status to other drugs, medicaments and biological substances; Z91.030 Bee allergy status; Z79.891 Long term (current) use of opiate analgesic; Z79.899 Other long term (current) drug therapy | CPT/HCPCS: G0463 ==

== ENCOUNTER → 2017-03-18 | Outpatient (CLI) | payer MEDICARE, OTHER ==
[~2017-03-18] MED LIST changes: -/TIZA4TA PO; +BUPIVACAINE HCL 0.25% 30 ML VIAL As Ordered; -BUPIVACAINE HCL 0.25% 30 ML VIAL As Ordered ONE; -CLEO150C; -COLA100C2; -COLA100C2 OR; -CYMB1CAP PO; -FISH1000 PO; -FLECTOR1.3 EXT; -FLEX5TAB3 PO; -FLEXERIL OR; -IBUP600T OR; +ISOVUE-M 300 61% 15ML VIAL (Q9967) As Ordered; -ISOVUE-M 300 61% 15ML VIAL (Q9967) As Ordered ONE; +LIDOCAINE 1% SDV INJ 30 ML VIAL As Ordered; -LIDOCAINE 1% SDV INJ 30 ML VIAL As Ordered ONE; -MAGN200T PO; -MORP10SO OR; -MORP15TA2 PO; -MORPHINE SULFATE IR; -MS C30TA2; -MS C30TA2 OR; -OMEP40CA2 PO; -OXYC10TA12; -OXYC40TA19; -POTA75TA2 PO; -REQU1TAB15 PO; -SKEL800T5; -SKEL800T5 OR; -SOMA350T PO; -TPS CREAM TOP; +TRIAMCINOLONE ACETONIDE SUSP 40 MG/ML VIAL (J3301) As Ordered; -TRIAMCINOLONE ACETONIDE SUSP 40 MG/ML VIAL (J3301) As Ordered ONE; -VITA100067 PO; -VOLT1GEL2 TD; -[UNRECOGNIZED DRUG - CODE]; -[UNRECOGNIZED DRUG - CODE] OR; -vitamin b PO
== END ==
LOC: M PAIN 10:30
DX: G89.29 Other chronic pain (principal); M47.812 Spondylosis without myelopathy or radiculopathy, cervical region; F17.210 Nicotine dependence, cigarettes, uncomplicated; Z91.030 Bee allergy status; Z88.8 Allergy status to other drugs, medicaments and biological substances; Z79.891 Long term (current) use of opiate analgesic; Z79.899 Other long term (current) drug therapy
CPT/HCPCS: J3301

== ENCOUNTER → 2017-09-18 | Outpatient (CLI) | payer MEDICARE, OTHER | LOC: M PAIN 14:45 | DX: G89.29 Other chronic pain (principal); M43.07 Spondylolysis, lumbosacral region; K21.9 Gastro-esophageal reflux disease without esophagitis; M54.5 Low back pain; M54.2 Cervicalgia; F17.210 Nicotine dependence, cigarettes, uncomplicated; Z98.1 Arthrodesis status; Z79.899 Other long term (current) drug therapy; Z91.030 Bee allergy status; Z88.6 Allergy status to analgesic agent | CPT/HCPCS: G0463 ==

== ENCOUNTER → 2017-10-16 | Outpatient (CLI) | payer MEDICARE, OTHER | LOC: M PAIN 08:45 | DX: M47.816 Spondylosis without myelopathy or radiculopathy, lumbar region (principal); M47.817 Spondylosis without myelopathy or radiculopathy, lumbosacral region; G89.29 Other chronic pain; F17.210 Nicotine dependence, cigarettes, uncomplicated; Z79.891 Long term (current) use of opiate analgesic; Z79.899 Other long term (current) drug therapy; Z88.6 Allergy status to analgesic agent; Z91.030 Bee allergy status | CPT/HCPCS: J3301 ==

== ENCOUNTER → 2017-10-22 | Outpatient (CLI) | payer MEDICARE, OTHER | LOC: M PAIN 10:30 | DX: M46.1 Sacroiliitis, not elsewhere classified (principal); K21.9 Gastro-esophageal reflux disease without esophagitis; M54.5 Low back pain; F17.210 Nicotine dependence, cigarettes, uncomplicated; Z79.891 Long term (current) use of opiate analgesic; Z79.899 Other long term (current) drug therapy; Z98.1 Arthrodesis status; Z88.6 Allergy status to analgesic agent; Z91.030 Bee allergy status | CPT/HCPCS: J3301 ==

== ENCOUNTER → 2017-10-30 | Outpatient (CLI) | payer MEDICARE, OTHER | LOC: M PAIN 09:00 | DX: M79.1 Myalgia (principal); M43.07 Spondylolysis, lumbosacral region; F17.210 Nicotine dependence, cigarettes, uncomplicated; Z79.891 Long term (current) use of opiate analgesic; Z79.899 Other long term (current) drug therapy; Z88.8 Allergy status to other drugs, medicaments and biological substances; Z91.030 Bee allergy status; Z87.798 Personal history of other (corrected) congenital malformations | CPT/HCPCS: G0463 ==

== ENCOUNTER → 2018-01-03 | Outpatient (CLI) | payer MEDICARE, OTHER | LOC: M PAIN 13:00 | DX: M54.2 Cervicalgia (principal); M43.07 Spondylolysis, lumbosacral region; M79.18 Myalgia, other site; F17.210 Nicotine dependence, cigarettes, uncomplicated; Z79.899 Other long term (current) drug therapy; Z88.8 Allergy status to other drugs, medicaments and biological substances; Z91.030 Bee allergy status | CPT/HCPCS: G0463 ==

== ENCOUNTER → 2018-03-06 | Outpatient (CLI) | payer MEDICARE, OTHER ==
[~2018-03-06] MED LIST changes: +/TIZA4TA PO; -BUPIVACAINE HCL 0.25% 30 ML VIAL As Ordered; +CLEO150C; +COLA100C2; +COLA100C2 OR; +CYMB1CAP PO; +FISH1000 PO; +FLECTOR1.3 EXT; +FLEX5TAB3 PO; +FLEXERIL OR; +IBUP600T OR; -ISOVUE-M 300 61% 15ML VIAL (Q9967) As Ordered; -LIDOCAINE 1% SDV INJ 30 ML VIAL As Ordered; +MAGN200T PO; +MORP10SO OR; +MORP15TA2 PO; +MORPHINE SULFATE IR; +MS C30TA2; +MS C30TA2 OR; +OMEP40CA2 PO; +OXYC10TA12; +OXYC40TA19; +POTA75TA2 PO; +REQU0.5T PO; +SKEL800T5; +SKEL800T5 OR; +SOMA350T PO; +TPS CREAM TOP; -TRIAMCINOLONE ACETONIDE SUSP 40 MG/ML VIAL (J3301) As Ordered; +VITA100067 PO; +VOLT1GEL2 TD; +[UNRECOGNIZED DRUG - CODE]; +[UNRECOGNIZED DRUG - CODE] OR; +vitamin b PO
--- NOTE | 2018-03-26 00:27 | ECWPNPC ---
PATIENT NAME: KEMAR SEGURA : 1955 GENDER: MALE VISIT DATE: 03/06/2018 DISCHARGE DATE: 03/06/18 1254 VISIT LOCKED DATE TIME: PHYSICIAN: ALESSIA MATHEWS RESOURCE: ALESSIA MATHEWS REASON FOR APPOINTMENT 1. BACK/NECK HISTORY OF PRESENT ILLNESS HISTORY OF PRESENT ILLNESS: HERE FOR F/U OF CHRONIC LOW BACK AND NECK PAIN.CHIEF AREA OFPAIN IS LOW BACK.RATING LOW BACK PAIN 3/5VAS.DESCRIBES PAIN INTERMITTENT,ACHING AND SORE.PAIN IS AGGREVATED WITH INCREASE OF PHYSICAL ACTIVITY AND RELIEVED SOMEWHAT AT REST.DISCUSSED TREATMENT OPTIONS. PAIN THE PATIENT DESCRIBES THE PAIN... FALL RISK SCREENING: SCREENING :TWO OR MORE FALLS WITHOUT INJURY IN THE PAST YEAR CURRENT MEDICATIONS TAKING VITAMIN B-COMPLEX TABLET ORALLY DAILY TAKING FISH OIL 1000 MG CAPSULE 1 CAPSULE ORALLY ONCE A DAY TAKING VOLTAREN 1 % GEL TRANSDERMAL TAKING IBUPROFEN 600 MG TABLET 1 TABLET ORALLY THREE TIMES A DAY NEEDED TAKING ZANAFLEX 4 MG TABLET 1 TABLET NEEDED ORALLY THREE TIMES A DAY TAKING MORPHINE SULFATE 15 MG TABLET 1 TABLET ORALLY EVERY 6-8 HRS PRN PAIN MDD=2 TAKING VITAMIN D 2000 UNIT TABLET 1 TABLET ORALLY ONCE A DAY MEDICATION LIST REVIEWED AND RECONCILED WITH THE PATIENT PAST MEDICAL HISTORY GERD CLUB FEET AND HAD BRACES AND CRUTCHES LOW BACK PAIN ALLERGIES BEE STINGS: HIVES,ITCHING NAPROSYN: HIVES, ITCHING SURGICAL HISTORY LUMBAR FUSION L-5 S1 FAMILY HISTORY FATHER: 78 YRS, DIAGNOSED WITH DIABETES, HYPERTENSION MOTHER: 56 YRS, DIAGNOSED WITH CANCER DAD- MESOPHELIOMA, DAUGHTER - MURDERED. SOCIAL HISTORY GENERAL: TOBACCO USE ARE YOU A:CURRENT SMOKER ARE YOU INTERESTED IN QUITTING?NOT READY TO QUIT COUNSELED THE PATIENT ON SMOKING EFFECTS, EDUCATION [id number]/03/2019 HOW MANY CIGARETTES A DAY DO YOU SMOKE?31 OR MORE 2 PACKS PER DAY HOW SOON AFTER YOU WAKE UP DO YOU SMOKE YOUR FIRST CIGARETTE?WITHIN 5 MIN HOW OFTEN DO YOU SMOKE CIGARETTES?EVERY DAY PATIENT COUNSELED ON THE DANGERS OF TOBACCO USE AND URGED TO QUIT:03/06/2018 SMOKING CESSATION INFORMATION GIVEN10/16/2017 CAFFEINE CAFFEINE USE?YES HOW OFTEN AND HOW MUCH? 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 EXERCISE: NO REGULAR EXERCISE. MARITAL STATUS: .. OTHERS AT HOME: NONE. PAIN CLINIC PFS, CLERGY, PUBLIC HEALTH REFERRALS PFS REFERRAL NEEDED?NO CLERGY REFERRAL NEEDED?NO PUBLIC HEALTH REFERRAL NEEDED?NO WAS THE PROVIDER NOTIFIED OF ANY PERTINENT INFO?YES HAS THE PATIENT BEEN EDUCATED REGARDING HIS/HER PLAN OF CARE?YES HAS THE PATIENT BEEN EDUCATED REGARDING PAIN, THE RISK FOR PAIN, THE IMPORTANCE OF EFFECTIVE PAIN MANAGEMENT, AND THE PAIN ASSESSMENT PROCESS?YES ADVANCE DIRECTIVE ADVANCE DIRECTIVE DISCUSSED WITH PATIENT:YES PT HAS NO ADVANCED DIRECTIVES, DECLINED INFORMATION OR ASSISTANCE AT THIS TIME REVIEWED WITH PT 01/03/18 BVREVIEWED WITH PT 03/06/18 1230 LAS. HOSPITALIZATION/MAJOR DIAGNOSTIC PROCEDURE PNEUMONIA 2012 REVIEW OF SYSTEMS REVIEWED BY: PROVIDER: ALESSIA RUVALCABA . CONSTITUTIONAL: ANY CHANGE IN YOUR MEDICAL CONDITION? NO . CHILLS NO . FEVER NO . INFECTION: DO YOU HAVE NEW INFECTIONS? NO . DO YOU HAVE HISTORY OF MRSA? NO . MUSCULOSKELETAL: ANY NEW PATTERNS OF PAIN OR NUMBNESS? PT REPORTS LESS PAIN IN NECK/MID BACK WITH PHYSICAL THERAPY. . GASTROENTEROLOGY: ANY NEW CHANGE IN BOWEL CONTROL? NO . GENITOURINARY: ANY NEW CHANGE IN BLADDER CONTROL? NO . IS THERE A CHANCE YOU COULD BE ? NO . HEMATOLOGY/LYMPH: DO YOU TAKE ANY BLOOD THINNERS? (FOR EXAMPLE- COUMADIN, PLAVIX, AGGRENOX, PLATEL, PRADAXA, OR XARELTO) NO . WHEN WAS YOUR LAST DOSE? DATE: TIME: . NEUROLOGY: HAVE YOU FALLEN IN THE PAST 6 MONTHS? YES PT REPORTS TRIPS/FALLS. DENIES INJURY FROM FALL, NO ED VISIT . ANY NEW EXTREMITY NUMBNESS OR WEAKNESS? NO . CARDIOLOGY: DO YOU HAVE A PACEMAKER OR DEFIBRILLATOR? NO . RESPIRATORY: HAVE YOU BEEN SICK IN THE PAST WEEK? NO . FEVER NO . FLU LIKE SYMPTOMS? NO . COUGH NO . INTEGUMENTARY: DO YOU HAVE ANY RASHES OR OPEN SORES? NO . ALLERGIC/IMMUNO: ARE YOU ALLERGIC TO SHELLFISH OR IV DYE? NO . ANY NEW ALLERGIES? NO . PSYCHIATRIC: DO YOU HAVE THOUGHTS OF HURTING YOURSELF OR SOMEONE ELSE? NO . ARE YOU ABUSED, NEGLECTED, OR IN AN UNSAFE ENVIRONMENT? NO . ENDOCRINOLOGY: ARE YOU DIABETIC? NO . OTHER: DO YOU NEED ANY PRESCRIPTIONS? YES . IF YES, PLEASE LIST: ____MORPHINE . ANY NEW PROBLEMS WITH YOUR MEDICATIONS? NO . WHEN DID YOU LAST EAT? ____ . WHEN DID YOU LAST DRINK? ____ . WHAT DID YOU LAST DRINK? ____ . NAME OF PERSON DRIVING YOU HOME? ____ . DO YOU HAVE ANY OTHER QUESTIONS OR CONCERNS NO . VITAL SIGNS WT 247 LBS, HT 6'0, BMI 33.50 INDEX, BP 144/85 MM HG, HR 92 /MIN, RR 18 /MIN, TEMP 97.8 F, OXYGEN SAT % 96%, SAFE IN ENV? (Y/N) YES, REVIEWED BY: ARTHUR. EXAMINATION GENERAL EXAMINATION: GENERAL APPEARANCE:AWAKE,ALERT ,PLEAASANT . PSYCHAFFECT NORMAL . LUNGS:LUNG SINGH ARE CLEAR TO AUSCULTATION BILATERALLY. GOOD MOVEMENT OF AIR . HEART:S1, S2 IN A REGULAR RATE AND RHYTHM. NO SIGNIFICANT MURMURS, RUBS OR GALLOPS NOTED . LUMBAR SACRAL SPINEPALPATION:TENDER OVER BILAT. L3/4-L4/5 LUMBAR FACETS WITH FACET LOADING. . ASSESSMENTS MYOFASCIAL PAIN - M79.1 (PRIMARY) LUMBOSACRAL SPONDYLOLYSIS - M43.07 TREATMENT MYOFASCIAL PAIN REFILL MORPHINE SULFATE TABLET, 15 MG, 1 TABLET, ORALLY, EVERY 6-8 HRS PRN PAIN MDD=2, 30 DAY(S), 30, REFILLS 0 NOTES: BILAT. L3/4-L4/5-L5/S1 LUMBAR THERAPEUTIC BLOCKISTOP REGISTRY REVIEWED AND DEMONSTRATES COMPLLIANCE. (REF # ) BRINGS IN MEDICATIONS WHICH IS APPROPRIATE FOR WHAT WAS DISPENSED. RECENT URINE TOXICOLOGY REVIEWED. NO UNAUTHORIZED MEDICATIONS. NO ILLICIT SUBSTANCES .RISKS AND BENEFITS OF NARCOTIC/OPIOD MEDICATIONS WERE REVIEWED WITH PATIENT - THIS INCLUDES BUT IS NOT LIMITED TO RISK OF DEPENDANCE/DEVELOPMENT OF ADDICTION, MOOD DISTURBANCE AND DEPRESSION, OSTEOPOROSIS, HORMONAL AND LABIDAL CHANGES, RESPIRATORY DEPRESSION AND . PATIENT IS ADVISED NOT TO DRIVE OR DRINK ALCOHOL WHILE ON THESE MEDICATIONS,. PROCEDURE CODES FA211 ESTABILISHED PATIENT [facility] FACILITY CHARGE DISPOSITION & COMMUNICATION FOLLOW UP POST (REASON: BILAT. L3/4-L4/5-L5/S1 LUMBAR THERAPEUTIC BLOCK) ELECTRONICALLY SIGNED BY PEG RUDOLPH ON 03/25/2018 AT 04:28 PM EST DISCLAIMER : THIS IS A VISIT SUMMARY EXTRACTED FROM THE [employer] CHART. IT IS NOT A COPY OF THE [employer] PROGRESS NOTE. KEITH
== END ==
LOC: M PAIN 11:45
PROVIDERS: ATTEND Nurse Practitioner Family
DX: M79.10 Myalgia, unspecified site (principal); M43.07 Spondylolysis, lumbosacral region; F17.210 Nicotine dependence, cigarettes, uncomplicated; Z79.891 Long term (current) use of opiate analgesic; Z79.899 Other long term (current) drug therapy; Z88.8 Allergy status to other drugs, medicaments and biological substances; Z91.030 Bee allergy status; Z87.76 Personal history of (corrected) congenital malformations of integument, limbs and musculoskeletal system

== ENCOUNTER → 2018-05-01 | Outpatient (CLI) | payer MEDICARE, OTHER ==
[~2018-05-01] MED LIST changes: +BUPIVACAINE HCL 0.25% 30 ML VIAL As Ordered ONE; +ISOVUE-M 300 61% 15ML VIAL (Q9967) As Ordered ONE; +LIDOCAINE 1% SDV INJ 30 ML VIAL As Ordered ONE; +TRIAMCINOLONE ACETONIDE SUSP 40 MG/ML VIAL (J3301) As Ordered ONE
--- NOTE | 2018-05-01 13:42 | REP ---
Partial lumbar spine series: Two views . History: Injection procedure for pain. 45 seconds of fluoroscopy time is reported. Findings: A sequence of two fluoroscopically obtained last image hold procedural spot radiographs of the lumbar spine document needle position and contrast injection associated with injection procedure. Electronically Signed by Bry Ivy MD 05/01/2018 01:34 P
--- NOTE | 2018-05-10 23:26 | ECWPNPC ---
PATIENT NAME: KEMAR SEGURA : 1955 GENDER: MALE VISIT DATE: 05/01/2018 DISCHARGE DATE: 05/01/18 1036 VISIT LOCKED DATE TIME: PHYSICIAN: ANNAMARIE KELLEY MD RESOURCE: ANNAMARIE KELLEY MD REASON FOR APPOINTMENT 1. BILAT. L3/4-L4/5-L5/S1 LUMBAR THERAPEUTIC BLOCK HISTORY OF PRESENT ILLNESS HISTORY OF PRESENT ILLNESS: PAIN THE PATIENT DESCRIBES THE PAIN... FALL RISK SCREENING: SCREENING : NO FALLS IN THE PAST YEAR. CURRENT MEDICATIONS TAKING VITAMIN B-COMPLEX TABLET ORALLY DAILY, NOTES: 04/30 050 TAKING FISH OIL 1000 MG CAPSULE 1 CAPSULE ORALLY ONCE A DAY, NOTES: 04/30 499 TAKING VOLTAREN 1 % GEL TRANSDERMAL , NOTES: NONE RECENT TAKING IBUPROFEN 600 MG TABLET 1 TABLET ORALLY THREE TIMES A DAY NEEDED, NOTES: 04/29 TAKING ZANAFLEX 4 MG TABLET 1 TABLET NEEDED ORALLY THREE TIMES A DAY, NOTES: 04/29 1800 TAKING VITAMIN D 2000 UNIT TABLET 1 TABLET ORALLY ONCE A DAY, NOTES: NONE RECENT TAKING MORPHINE SULFATE 15 MG TABLET 1 TABLET ORALLY EVERY 6-8 HRS PRN PAIN MDD=2, NOTES: 04/29 MEDICATION LIST REVIEWED AND RECONCILED WITH THE PATIENT PAST MEDICAL HISTORY GERD CLUB FEET INFANT AND HAD BRACES AND CRUTCHES LOW BACK PAIN NECK PAIN ALLERGIES BEE STINGS: HIVES,ITCHING NAPROSYN: HIVES, ITCHING SURGICAL HISTORY LUMBAR FUSION L-5 S1 FAMILY HISTORY FATHER: 78 YRS, DIAGNOSED WITH DIABETES, HYPERTENSION MOTHER: 56 YRS, DIAGNOSED WITH CANCER DAD- MESOPHELIOMA, DAUGHTER - MURDERED. SOCIAL HISTORY GENERAL: TOBACCO USE ARE YOU A:CURRENT SMOKER ARE YOU INTERESTED IN QUITTING?NOT READY TO QUIT COUNSELED THE PATIENT ON SMOKING EFFECTS, EDUCATION [id number]/28/2019 HOW MANY CIGARETTES A DAY DO YOU SMOKE?31 OR MORE 2 PACKS PER DAY HOW SOON AFTER YOU WAKE UP DO YOU SMOKE YOUR FIRST CIGARETTE?WITHIN 5 MIN HOW OFTEN DO YOU SMOKE CIGARETTES?EVERY DAY PATIENT COUNSELED ON THE DANGERS OF TOBACCO USE AND URGED TO QUIT:05/01/2018 SMOKING CESSATION INFORMATION GIVEN10/16/2017 ALCOHOL SCREENING DID YOU HAVE A DRINK CONTAINING ALCOHOL IN THE PAST YEAR?NO POINTS0 INTERPRETATIONNEGATIVE RECREATIONAL DRUG USE DRUG USE?NO CAFFEINE CAFFEINE USE?YES HOW OFTEN AND HOW MUCH? 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 EXERCISE: NO REGULAR EXERCISE. MARITAL STATUS: .. OTHERS AT HOME: NONE. PAIN CLINIC PFS, CLERGY, PUBLIC HEALTH REFERRALS PFS REFERRAL NEEDED?NO CLERGY REFERRAL NEEDED?NO PUBLIC HEALTH REFERRAL NEEDED?NO WAS THE PROVIDER NOTIFIED OF ANY PERTINENT INFO? N/A HAS THE PATIENT BEEN EDUCATED REGARDING HIS/HER PLAN OF CARE?YES HAS THE PATIENT BEEN EDUCATED REGARDING PAIN, THE RISK FOR PAIN, THE IMPORTANCE OF EFFECTIVE PAIN MANAGEMENT, AND THE PAIN ASSESSMENT PROCESS?YES ADVANCE DIRECTIVE ADVANCE DIRECTIVE DISCUSSED WITH PATIENT:YES 05/01/18 PT HAS NO ADVANCED DIRECTIVES, DECLINED INFORMATION OR ASSISTANCE AT THIS TIME. AD REVIEWED WITH PT 01/03/18 BVREVIEWED WITH PT 03/06/18 1230 LAS05/01/18 REVIEWED WITH PT. AD. HOSPITALIZATION/MAJOR DIAGNOSTIC PROCEDURE PNEUMONIA 2013 BACK SURGERY REVIEW OF SYSTEMS REVIEWED BY: PROVIDER: . CONSTITUTIONAL: ANY CHANGE IN YOUR MEDICAL CONDITION? NO . CHILLS NO . FEVER NO . INFECTION: DO YOU HAVE NEW INFECTIONS? NO . DO YOU HAVE HISTORY OF MRSA? NO . MUSCULOSKELETAL: ANY NEW PATTERNS OF PAIN OR NUMBNESS? NO . GASTROENTEROLOGY: ANY NEW CHANGE IN BOWEL CONTROL? NO . GENITOURINARY: ANY NEW CHANGE IN BLADDER CONTROL? NO . IS THERE A CHANCE YOU COULD BE ? NO . HEMATOLOGY/LYMPH: DO YOU TAKE ANY BLOOD THINNERS? (FOR EXAMPLE- COUMADIN, PLAVIX, AGGRENOX, PLATEL, PRADAXA, OR XARELTO) NO . WHEN WAS YOUR LAST DOSE? DATE: TIME: . NEUROLOGY: HAVE YOU FALLEN IN THE PAST 12 MONTHS? YES . ANY NEW EXTREMITY NUMBNESS OR WEAKNESS? NO . CARDIOLOGY: DO YOU HAVE A PACEMAKER OR DEFIBRILLATOR? NO . RESPIRATORY: HAVE YOU BEEN SICK IN THE PAST WEEK? NO . FEVER NO . FLU LIKE SYMPTOMS? NO . COUGH NO . INTEGUMENTARY: DO YOU HAVE ANY RASHES OR OPEN SORES? NO . ALLERGIC/IMMUNO: ARE YOU ALLERGIC TO IV DYE? NO . ANY NEW ALLERGIES? NO . PSYCHIATRIC: DO YOU HAVE THOUGHTS OF HURTING YOURSELF OR SOMEONE ELSE? NO . ARE YOU ABUSED, NEGLECTED, OR IN AN UNSAFE ENVIRONMENT? NO . ENDOCRINOLOGY: ARE YOU DIABETIC? NO . OTHER: DO YOU NEED ANY PRESCRIPTIONS? NO . IF YES, PLEASE LIST: ____ . ANY NEW PROBLEMS WITH YOUR MEDICATIONS? NO . WHEN DID YOU LAST EAT? 04/30/18 1700 . WHEN DID YOU LAST DRINK? 05/01/18 0500 . WHAT DID YOU LAST DRINK? WATER . NAME OF PERSON DRIVING YOU HOME? MARIA LUISA SYLVIELITTLE . DO YOU HAVE ANY OTHER QUESTIONS OR CONCERNS NO . VITAL SIGNS WT 250 LBS, HT 6'0, BMI 33.90 INDEX, BP 158/75 MM HG, HR 70 /MIN, RR 18 /MIN, TEMP 98.3 F, OXYGEN SAT % 98%, SAFE IN ENV? (Y/N) Y, NA INITIALS VA 09:06, REVIEWED BY: AD. ASSESSMENTS SPONDYLOSIS OF LUMBAR REGION WITHOUT MYELOPATHY OR RADICULOPATHY - M47.816 (PRIMARY) SPONDYLOSIS OF LUMBOSACRAL REGION WITHOUT MYELOPATHY OR RADICULOPATHY - M47.817 PROCEDURES PN LUMBAR FACET BLOCK THERAPEUTIC PRE PROCEDURE DIAGNOSIS LUMBAR SPONDYLOSIS, LUMBOSACRAL SPONDYLOSIS POST PROCEDURE DIAGNOSIS LUMBAR SPONDYLOSIS, LUMBOSACRAL SPONDYLOSIS PROCEDURE BILATERAL L3-L4, BILATERAL L4-L5, AND BILATERAL L5-S1 LUMBAR FACET THERAPEUTIC BLOCK SURGEON DR. ANNAMARIE KELLEY MACHINE TOOL DESIGNER NONE ANESTHESIA LOCAL PRE PROCEDURE NOTE THE PATIENT HAS A HISTORY OF CHRONIC LOW BACK PAIN. I EVALUATE THE PATIENT AND REVIEWED THE CHART. I WENT OVER THE RISKS, ALTERNATIVES, AND BENEFITS ASSOCIATED WITH THIS PROCEDURE. THE PATIENT WOULD LIKE TO PROCEED AND GIVE CONSENT TO PERFORMED THE PROCEDURE. THE PATIENT DENIES UNEXPLAINABLE WEIGHT LOSS, FEVER, CHILLS, OR NEW CHANGES IN URINARY OR BOWEL CONTROL DESCRIPTION OF PROCEDURE THE PATIENT WAS BROUGHT TO THE PROCEDURE ROOM AND PLACED IN THE PRONE POSITION. THE LUMBOSACRAL AREA WAS CLEANED WITH CHLORAPREP SOLUTION AND DRAPED ASEPTICALLY. THE PROCEDURE WAS DONE UNDER STERILE CONDITIONS. I CHECKED LATERALITY AND THE LEVEL WHERE THE PROCEDURE WAS GOING TO BE PERFORMED WITH THE PATIENT AND THE SUPPORTING STAFF AT THE MOMENT OF THE TIME OUT IN THE PROCEDURE ROOM. UNDER FLUOROSCOPIC GUIDANCE, THE TARGET POINT WAS SELECTED AT THE RIGHT AND LEFT L3-L4, RIGHT AND LEFT L4-L5, AND RIGHT AND LEFT L5-S1 FACET JOINT. TARGET POINT WAS SELECTED AFTER LATERAL ROTATION AND TILT OF THE MAGNIFIER OF THE C-ARM. LIDOCAINE 0.5% WAS USED TO NUMB THE SKIN AND THE SUBCUTANEOUS TISSUE BELOW IT. SPINAL NEEDLES, 22-GAUGE, WERE ADVANCED UNDER FLUOROSCOPIC GUIDANCE AND FOLLOWING PATIENT FEEDBACK UNTIL THE TARGETS WERE TOUCHED. THE POSITION OF THE NEEDLES WAS VERIFIED WITH AP AND LATERAL VIEWS. AFTER PROPER POSITION OF THE NEEDLES WAS ACHIEVED, ISOVUE-M DYE 30% 0.1 ML WAS INJECTED SHOWING ADEQUATE SPREAD OF THE DYE. THEN A SOLUTION OF 1.9 ML OF BUPIVACAINE 0.125% OF KENALOG 10 MG WAS INJECTED AT EACH SITE. THERE WAS NO EVIDENCE OF BLOOD, PARESTHESIA OR CEREBROSPINAL FLUID DURING THE PROCEDURE. THE PATIENT WAS SENT TO THE RECOVERY ROOM. THE PATIENT WAS MOVING THE EXTREMITIES AND DOING WELL. THERE WAS NO COMPLICATION DURING THE PROCEDURE. FLUOROSCOPY TIME WAS 45 SECONDS POST PROCEDURE NOTE THE PATIENT WILL BE SEEN IN A FOLLOW UP IN THE NEXT FEW WEEKS. INSTRUCTIONS WERE GIVEN, QUESTIONS WERE ANSWERED, AND THE PATIENT EXPRESSED UNDERSTANDING AND AGREES WITH THE PLAN. I, AGUILAR STEPHENSON, DOCUMENTED THE ABOVE INFORMATION ACTING A SCRIBE FOR DR. KELLEY. I HAVE REVIEWED THE ABOVE DOCUMENT, WRITTEN BY AGUILAR STEPHENSON SCRIBTaye AND I VERIFY THAT IT IS ACCURATE. DIAGNOSTIC IMAGING [facility] FACET BLOCK (PAIN)[id number] PROCEDURE CODES 6045F RADXPS IN END [id number] PXD 39112 INJ PARAVERT F JNT L/S 1 LEV, MODIFIERS: 50 [id number] INJ PARAVERT F JNT L/S 2 LEV, MODIFIERS: 50 [id number] INJ PARAVERT F JNT L/S 3 LEV, MODIFIERS: 50 DISPOSITION & COMMUNICATION FOLLOW UP 3 WEEKS ELECTRONICALLY SIGNED BY ANNAMARIE KELLEY MD, MD ON 05/10/2018 AT 05:31 PM EST DISCLAIMER : THIS IS A VISIT SUMMARY EXTRACTED FROM THE [employer] CHART. IT IS NOT A COPY OF THE [employer] PROGRESS NOTE. MTDD
== END ==
LOC: M PAIN 08:30
PROVIDERS: ATTEND Anesthesiology
DX: G89.29 Other chronic pain (principal); M47.816 Spondylosis without myelopathy or radiculopathy, lumbar region; M47.817 Spondylosis without myelopathy or radiculopathy, lumbosacral region; F17.210 Nicotine dependence, cigarettes, uncomplicated; Z79.891 Long term (current) use of opiate analgesic; Z79.899 Other long term (current) drug therapy; Z88.6 Allergy status to analgesic agent; Z91.030 Bee allergy status
CPT/HCPCS: 64493; 64494; 64495; J3301; Q9967

== ENCOUNTER → 2018-05-07 | Outpatient (CLI) | payer MEDICARE, OTHER ==
[~2018-05-07] MED LIST changes: -BUPIVACAINE HCL 0.25% 30 ML VIAL As Ordered ONE; -ISOVUE-M 300 61% 15ML VIAL (Q9967) As Ordered ONE; -LIDOCAINE 1% SDV INJ 30 ML VIAL As Ordered ONE; -TRIAMCINOLONE ACETONIDE SUSP 40 MG/ML VIAL (J3301) As Ordered ONE
--- NOTE | 2018-05-23 02:02 | ECWPNPC ---
PATIENT NAME: KEMAR SEGURA : 1955 GENDER: MALE VISIT DATE: 05/07/2018 DISCHARGE DATE: 05/07/18 1351 VISIT LOCKED DATE TIME: PHYSICIAN: ALESSIA MATHEWS RESOURCE: ALESSIA MATHEWS REASON FOR APPOINTMENT 1. POST PROC HISTORY OF PRESENT ILLNESS HISTORY OF PRESENT ILLNESS: HERE FOR POST PROCEDURE F/U.HAD BILAT. LFBT L3/4-L4/5-L5/S1 ON 05/01/18.REPORTING SIGNIFICANT REDUCTION IN PAIN THAT CONTINUES TODAY.HAVING NECK PAIN FLARE UP.HAD ER VISIT 5 DAYS AGO DUE TO LEFT FACIAL NUMBNESS AND LEFT BODY NUMBNESS.HE IS WAITING TO SEE SURGEON FOR HIS NECK.HE FEELS PINCHED NERVES IN NECK IS CAUSING THESE OTHER ISSUES. PAIN THE PATIENT DESCRIBES THE PAIN... FALL RISK SCREENING: SCREENING : NO FALLS IN THE PAST YEAR. CURRENT MEDICATIONS TAKING VITAMIN B-COMPLEX TABLET ORALLY DAILY, NOTES: 04/30 499 TAKING FISH OIL 1000 MG CAPSULE 1 CAPSULE ORALLY ONCE A DAY, NOTES: 04/30 499 TAKING VOLTAREN 1 % GEL TRANSDERMAL , NOTES: NONE RECENT TAKING IBUPROFEN 600 MG TABLET 1 TABLET ORALLY THREE TIMES A DAY NEEDED, NOTES: 04/29 TAKING ZANAFLEX 4 MG TABLET 1 TABLET NEEDED ORALLY THREE TIMES A DAY, NOTES: 04/29 1800 TAKING VITAMIN D 2000 UNIT TABLET 1 TABLET ORALLY ONCE A DAY, NOTES: NONE RECENT TAKING MORPHINE SULFATE 15 MG TABLET 1 TABLET ORALLY EVERY 6-8 HRS PRN PAIN MDD=2, NOTES: 04/29 TAKING CALCIUM + D 600-200 MG-UNIT TABLET 1 TABLET ORALLY TWICE A DAY MEDICATION LIST REVIEWED AND RECONCILED WITH THE PATIENT PAST MEDICAL HISTORY GERD CLUB FEET AND HAD BRACES AND CRUTCHES LOW BACK PAIN NECK PAIN ALLERGIES BEE STINGS: HIVES,ITCHING NAPROSYN: HIVES, ITCHING SURGICAL HISTORY LUMBAR FUSION L-5 S1 FAMILY HISTORY FATHER: 78 YRS, DIAGNOSED WITH DIABETES, HYPERTENSION MOTHER: 56 YRS, CANCER DAD- MESOPHELIOMA, DAUGHTER - MURDERED. SOCIAL HISTORY GENERAL: TOBACCO USE ARE YOU A:CURRENT SMOKER ARE YOU INTERESTED IN QUITTING?NOT READY TO QUIT COUNSELED THE PATIENT ON SMOKING EFFECTS, EDUCATION PEINFFEO97/28/2019 HOW MANY CIGARETTES A DAY DO YOU SMOKE?31 OR MORE 2 PACKS PER DAY HOW SOON AFTER YOU WAKE UP DO YOU SMOKE YOUR FIRST CIGARETTE?WITHIN 5 MIN HOW OFTEN DO YOU SMOKE CIGARETTES?EVERY DAY PATIENT COUNSELED ON THE DANGERS OF TOBACCO USE AND URGED TO QUIT:05/01/2018 SMOKING CESSATION INFORMATION GIVEN10/16/2017 LATEX QUESTIONNAIRE LATEX ALLERGY : HAVE YOU EVER DEVELOPED ANY TYPE OF REACTION AFTER HANDLING LATEX PRODUCTS SUCH RUBBER GLOVES, CONDOMS, DIAPHRAGMS, BALLOONS, SOCKS, OR UNDERWEAR?NO LATEX ALLERGY : HAVE YOU EVER DEVELOPED ANY TYPE OF REACTION DURING OR AFTER DENTAL APPOINTMENT, VAGINAL/RECTAL EXAMINATION, SURGICAL PROCEDURE, OR ANY OTHER EXPOSURE?NO LATEX RISK : HAVE YOU EVER HAD ANY DIFFICULTY BREATHING OR HIVES AFTER EATING OR HANDLING ANY FRUITS, OR VEGETABLES; SUCH KIWI, BANANAS, STONE FRUITS, OR CHESTNUTSNO LATEX RISK : DO YOU HAVE A PREVIOUS PERSONAL HISTORY OF MORE THAN NINE SURGERIES, SPINA BIFIDA, OR REPEATED CATHERTIZATIONS? NO LATEX RISK : ARE YOU FREQUENTLY EXPOSED TO LATEX PRODUCTS IN YOUR OCCUPATION?NO DATE ASKED : 05/07/2018 ALCOHOL SCREENING DID YOU HAVE A DRINK CONTAINING ALCOHOL IN THE PAST YEAR?NO POINTS0 INTERPRETATIONNEGATIVE RECREATIONAL DRUG USE DRUG USE?NO CAFFEINE CAFFEINE USE?YES HOW OFTEN AND HOW MUCH? 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 EXERCISE: NO REGULAR EXERCISE. MARITAL STATUS: .. OTHERS AT HOME: NONE. PAIN CLINIC PFS, CLERGY, PUBLIC HEALTH REFERRALS PFS REFERRAL NEEDED?NO CLERGY REFERRAL NEEDED?NO PUBLIC HEALTH REFERRAL NEEDED?NO WAS THE PROVIDER NOTIFIED OF ANY PERTINENT INFO? N/A HAS THE PATIENT BEEN EDUCATED REGARDING HIS/HER PLAN OF CARE?YES HAS THE PATIENT BEEN EDUCATED REGARDING PAIN, THE RISK FOR PAIN, THE IMPORTANCE OF EFFECTIVE PAIN MANAGEMENT, AND THE PAIN ASSESSMENT PROCESS?YES ADVANCE DIRECTIVE ADVANCE DIRECTIVE DISCUSSED WITH PATIENT:YES PT HAS NO ADVANCED DIRECTIVES, DECLINED INFORMATION OR ASSISTANCE AT THIS TIME. REVIEWED WITH PT 01/03/18 BVREVIEWED WITH PT 03/06/18 1230 LAS05/01/18 REVIEWED WITH PT. AD05/07/18 1315 REVIEWED WITH PT LAS. HOSPITALIZATION/MAJOR DIAGNOSTIC PROCEDURE PNEUMONIA 2013 BACK SURGERY REVIEW OF SYSTEMS REVIEWED BY: PROVIDER: ALESSIA RUVALCABA . CONSTITUTIONAL: ANY CHANGE IN YOUR MEDICAL CONDITION? NO . CHILLS NO . FEVER NO . INFECTION: DO YOU HAVE NEW INFECTIONS? NO . DO YOU HAVE HISTORY OF MRSA? NO . MUSCULOSKELETAL: ANY NEW PATTERNS OF PAIN OR NUMBNESS? YES PT REPORTS AN EPISODE WHERE THE ENTIRE LEFT SIDE OF HIS BODY WAS SUDDENLY NUMB, TINGLING, AND A LITTLE WEAK X ABOUT 20 MINUTES. WENT TO ED, HAD SOME TESTING CT OF NECK, BRAIN. NUMBNESS WENT AWAY, STILL COMES BACK IN "WAVES" AT TIMES. TESTING NEGATIVE FOR STROKE PER PT, PT RELEASED. . GASTROENTEROLOGY: ANY NEW CHANGE IN BOWEL CONTROL? NO . GENITOURINARY: ANY NEW CHANGE IN BLADDER CONTROL? NO . IS THERE A CHANCE YOU COULD BE ? NO . HEMATOLOGY/LYMPH: DO YOU TAKE ANY BLOOD THINNERS? (FOR EXAMPLE- COUMADIN, PLAVIX, AGGRENOX, PLATEL, PRADAXA, OR XARELTO) NO . WHEN WAS YOUR LAST DOSE? DATE: TIME: . NEUROLOGY: HAVE YOU FALLEN IN THE PAST 12 MONTHS? NO . ANY NEW EXTREMITY NUMBNESS OR WEAKNESS? NO . CARDIOLOGY: DO YOU HAVE A PACEMAKER OR DEFIBRILLATOR? NO . RESPIRATORY: HAVE YOU BEEN SICK IN THE PAST WEEK? NO . FEVER NO . FLU LIKE SYMPTOMS? NO . COUGH NO . INTEGUMENTARY: DO YOU HAVE ANY RASHES OR OPEN SORES? NO . ALLERGIC/IMMUNO: ARE YOU ALLERGIC TO IV DYE? NO . ANY NEW ALLERGIES? NO . PSYCHIATRIC: DO YOU HAVE THOUGHTS OF HURTING YOURSELF OR SOMEONE ELSE? NO . ARE YOU ABUSED, NEGLECTED, OR IN AN UNSAFE ENVIRONMENT? NO . ENDOCRINOLOGY: ARE YOU DIABETIC? NO . OTHER: DO YOU NEED ANY PRESCRIPTIONS? NO . IF YES, PLEASE LIST: ____ . ANY NEW PROBLEMS WITH YOUR MEDICATIONS? NO . WHEN DID YOU LAST EAT? ____ . WHEN DID YOU LAST DRINK? ____ . WHAT DID YOU LAST DRINK? ____ . NAME OF PERSON DRIVING YOU HOME? ____ . DO YOU HAVE ANY OTHER QUESTIONS OR CONCERNS NO . VITAL SIGNS WT 250 LBS, HT 6'0, BMI 33.90 INDEX, BP 170/88 MM HG, HR 73 /MIN, RR 18 /MIN, TEMP 98.4 F, OXYGEN SAT % 98%, NA INITIALS AW 1311. EXAMINATION GENERAL EXAMINATION: GENERAL APPEARANCE:AWAKE,ALERT ,PLEAASANT . PSYCHAFFECT NORMAL . LUNGS:LUNG SINGH ARE CLEAR TO AUSCULTATION BILATERALLY. GOOD MOVEMENT OF AIR . HEART:S1, S2 IN A REGULAR RATE AND RHYTHM. NO SIGNIFICANT MURMURS, RUBS OR GALLOPS NOTED . ASSESSMENTS LUMBOSACRAL SPONDYLOLYSIS - M43.07 (PRIMARY) SACROILIITIS - M46.1 TREATMENT LUMBOSACRAL SPONDYLOLYSIS CONTINUE IBUPROFEN TABLET, 600 MG, 1 TABLET, ORALLY, THREE TIMES A DAY NEEDED, NOTES: 04/29 CONTINUE ZANAFLEX TABLET, 4 MG, 1 TABLET NEEDED, ORALLY, THREE TIMES A DAY, NOTES: 04/29 1799 CONTINUE MORPHINE SULFATE TABLET, 15 MG, 1 TABLET, ORALLY, EVERY 6-8 HRS PRN PAIN MDD=2, NOTES: 04/29 NOTES: ISTOP REGISTRY REVIEWED AND DEMONSTRATES COMPLLIANCE. BRINGS IN MEDICATIONS WHICH IS APPROPRIATE FOR WHAT WAS DISPENSED. RECENT URINE TOXICOLOGY REVIEWED. NO UNAUTHORIZED MEDICATIONS. NO ILLICIT SUBSTANCES AND PRESCRIBED MEDICATIONS WERE PRESENT. , RISKS AND BENEFITS OF NARCOTIC/OPIOD MEDICATIONS WERE REVIEWED WITH PATIENT - THIS INCLUDES BUT IS NOT LIMITED TO RISK OF DEPENDANCE/DEVELOPMENT OF ADDICTION, MOOD DISTURBANCE AND DEPRESSION, OSTEOPOROSIS, HORMONAL AND LABIDAL CHANGES, RESPIRATORY DEPRESSION AND . PATIENT IS ADVISED NOT TO DRIVE OR DRINK ALCOHOL WHILE ON THESE MEDICATIONS. PROCEDURE CODES FA211 ESTABILISHED PATIENT [facility] CHARGE DISPOSITION & COMMUNICATION FOLLOW UP 2 MONTHS ELECTRONICALLY SIGNED BY PEG RUDOLPH ON 05/22/2018 AT 04:25 PM EDT DISCLAIMER : THIS IS A VISIT SUMMARY EXTRACTED FROM THE [employer] CHART. IT IS NOT A COPY OF THE [employer] PROGRESS NOTE. KEITH
== END ==
LOC: M PAIN 13:00
PROVIDERS: ATTEND Nurse Practitioner Family
DX: M43.07 Spondylolysis, lumbosacral region (principal); M46.1 Sacroiliitis, not elsewhere classified; F17.210 Nicotine dependence, cigarettes, uncomplicated; Z79.891 Long term (current) use of opiate analgesic; Z79.899 Other long term (current) drug therapy; Z88.8 Allergy status to other drugs, medicaments and biological substances; Z91.030 Bee allergy status

== ENCOUNTER → 2018-07-07 | Outpatient (CLI) | payer MEDICARE, OTHER ==
[~2018-07-07] MED LIST changes: -/TIZA4TA PO; +TIZA1TAB19 PO
--- NOTE | 2018-07-30 01:51 | ECWPNPC ---
PATIENT NAME: KEMAR SEGURA : 1955 GENDER: MALE VISIT DATE: 07/07/2018 DISCHARGE DATE: 07/07/18 1108 VISIT LOCKED DATE TIME: PHYSICIAN: ALESSIA MATHEWS RESOURCE: ALESSIA MATHEWS REASON FOR APPOINTMENT 1. BACK/NECK HISTORY OF PRESENT ILLNESS HISTORY OF PRESENT ILLNESS: HERE FOR F/U OF CHRONIC LOW BACK AND NECK PAIN.OVERALL DOING WELL.RATING PAIN VAS 2/10.USING MORPHINE AT HS PRN FOR SEVERE PAIN.FINDS MEDICATION EFFECTIVE AT REDUCING PAIN AND KEEPING HIM FUNCTIONAL. PAIN THE PATIENT DESCRIBES THE PAIN... FALL RISK SCREENING: SCREENING :NO FALLS REPORTED IN THE LAST YEAR CURRENT MEDICATIONS TAKING VITAMIN B-COMPLEX TABLET ORALLY DAILY TAKING FISH OIL 1000 MG CAPSULE 1 CAPSULE ORALLY ONCE A DAY TAKING VOLTAREN 1 % GEL TRANSDERMAL TAKING VITAMIN D 2000 UNIT TABLET 1 TABLET ORALLY ONCE A DAY TAKING CALCIUM + D 600-200 MG-UNIT TABLET 1 TABLET ORALLY TWICE A DAY TAKING IBUPROFEN 600 MG TABLET 1 TABLET ORALLY THREE TIMES A DAY NEEDED TAKING ZANAFLEX 4 MG TABLET 1 TABLET NEEDED ORALLY THREE TIMES A DAY TAKING MORPHINE SULFATE 15 MG TABLET 1 TABLET ORALLY EVERY 6-8 HRS PRN PAIN MDD=2 MEDICATION LIST REVIEWED AND RECONCILED WITH THE PATIENT PAST MEDICAL HISTORY GERD CLUB FEET INFANT AND HAD BRACES AND CRUTCHES LOW BACK PAIN NECK PAIN LEFT SIDED NUMBNESS ALLERGIES BEE STINGS: HIVES,ITCHING NAPROSYN: HIVES, ITCHING SURGICAL HISTORY LUMBAR FUSION L-5 S1 FAMILY HISTORY FATHER: 78 YRS, DIAGNOSED WITH DIABETES, HYPERTENSION MOTHER: 56 YRS, CANCER DAD- MESOPHELIOMA, \NDAUGHTER - MURDERED. SOCIAL HISTORY GENERAL: TOBACCO USE ARE YOU A:CURRENT SMOKER ARE YOU INTERESTED IN QUITTING?THINKING ABOUT QUITTING STATES HE NEEDS TO QUIT FOR SURGERY. COUNSELED THE PATIENT ON SMOKING CESSATION, EDUCATION PROWUYOL83/06/2019 HOW MANY CIGARETTES A DAY DO YOU SMOKE?31 OR MORE 2 AND 1/2 PACKS PER DAY HOW SOON AFTER YOU WAKE UP DO YOU SMOKE YOUR FIRST CIGARETTE?WITHIN 5 MIN HOW OFTEN DO YOU SMOKE CIGARETTES?EVERY DAY PATIENT COUNSELED ON THE DANGERS OF TOBACCO USE AND URGED TO QUIT:07/07/2018 SMOKING CESSATION INFORMATION GIVEN10/16/2017 OTHERS AT HOME: NONE. 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 LANGUAGE LANGUAGES SPOKEN:THAI NO DOMESTIC VIOLENCE DO YOU FEEL SAFE IN YOUR ENVIRONMENT?YES RECREATIONAL DRUG USE DRUG USE?NO EXERCISE: NO REGULAR EXERCISE. LEARNING BARRIERS / SPECIAL NEEDS BARRIERS TO LEARNING?NO HEARING IMPAIRED?NO VISION IMPAIRED?YES :CORRECTIVE LENSES COGNITIVELY IMPAIRED?NO READINESS TO LEARN?YES LEARNING PREFERENCES?NO LEARNING CAPABILITIES PRESENT?YES EMOTIONAL BARRIERS?NO SPECIAL DEVICES?NO BEHAVIORAL HEALTH DIRECTOR NEEDED?NO PAIN CLINIC PFS, CLERGY, PUBLIC HEALTH REFERRALS PFS REFERRAL NEEDED?NO CLERGY REFERRAL NEEDED?NO PUBLIC HEALTH REFERRAL NEEDED?NO WAS THE PROVIDER NOTIFIED OF ANY PERTINENT INFO? N/A HAS THE PATIENT BEEN EDUCATED REGARDING HIS/HER PLAN OF CARE?YES HAS THE PATIENT BEEN EDUCATED REGARDING PAIN, THE RISK FOR PAIN, THE IMPORTANCE OF EFFECTIVE PAIN MANAGEMENT, AND THE PAIN ASSESSMENT PROCESS?YES LATEX QUESTIONNAIRE LATEX ALLERGY : HAVE YOU EVER DEVELOPED ANY TYPE OF REACTION AFTER HANDLING LATEX PRODUCTS SUCH RUBBER GLOVES, CONDOMS, DIAPHRAGMS, BALLOONS, SOCKS, OR UNDERWEAR?NO LATEX ALLERGY : HAVE YOU EVER DEVELOPED ANY TYPE OF REACTION DURING OR AFTER DENTAL APPOINTMENT, VAGINAL/RECTAL EXAMINATION, SURGICAL PROCEDURE, OR ANY OTHER EXPOSURE?NO LATEX RISK : HAVE YOU EVER HAD ANY DIFFICULTY BREATHING OR HIVES AFTER EATING OR HANDLING ANY FRUITS, OR VEGETABLES; SUCH KIWI, BANANAS, STONE FRUITS, OR CHESTNUTSNO LATEX RISK : DO YOU HAVE A PREVIOUS PERSONAL HISTORY OF MORE THAN NINE SURGERIES, SPINA BIFIDA, OR REPEATED CATHERTIZATIONS? NO LATEX RISK : ARE YOU FREQUENTLY EXPOSED TO LATEX PRODUCTS IN YOUR OCCUPATION?NO DATE ASKED : 05/07/2018 CAFFEINE CAFFEINE USE?YES HOW OFTEN AND HOW MUCH? 12 CUPS PER DAY ADVANCE DIRECTIVE ADVANCE DIRECTIVE DISCUSSED WITH PATIENT:YES PT HAS NO ADVANCED DIRECTIVES, DECLINED INFORMATION OR ASSISTANCE AT THIS TIME. BAPTIST [id number] GNOSTICISM MARITAL STATUS: .. 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 AD05/07/18 1315 REVIEWED WITH PT LASREVIEWED WITH PATIENT 07/07/18 1036 JS. HOSPITALIZATION/MAJOR DIAGNOSTIC PROCEDURE PNEUMONIA 2013 BACK SURGERY REVIEW OF SYSTEMS REVIEWED BY: PROVIDER: ALESSIA RUVALCABA . CONSTITUTIONAL: ANY CHANGE IN YOUR MEDICAL CONDITION? NO . CHILLS NO . FEVER NO . INFECTION: DO YOU HAVE NEW INFECTIONS? NO . DO YOU HAVE HISTORY OF MRSA? NO . MUSCULOSKELETAL: ANY NEW PATTERNS OF PAIN OR NUMBNESS? YES, STATES HE HAD AN EPISODE OF LEFT-SIDED NUMBNESS ON HIS WHOLE LEFT SIDE IN JUNE, SEEN AT [facility], [place] DONE, THINKS RELATED TO NECK . GASTROENTEROLOGY: ANY NEW CHANGE IN BOWEL CONTROL? NO . GENITOURINARY: ANY NEW CHANGE IN BLADDER CONTROL? NO . IS THERE A CHANCE YOU COULD BE ? NO . HEMATOLOGY/LYMPH: DO YOU TAKE ANY BLOOD THINNERS? (FOR EXAMPLE- COUMADIN, PLAVIX, AGGRENOX, PLATEL, PRADAXA, OR XARELTO) NO . WHEN WAS YOUR LAST DOSE? DATE: TIME: . NEUROLOGY: HAVE YOU FALLEN IN THE PAST 12 MONTHS? YES, STATES PRIOR TO LAST VISIT, DISCUSSED AT LAST VISIT . ANY NEW EXTREMITY NUMBNESS OR WEAKNESS? NO . CARDIOLOGY: DO YOU HAVE A PACEMAKER OR DEFIBRILLATOR? NO . RESPIRATORY: HAVE YOU BEEN SICK IN THE PAST WEEK? NO . FEVER NO . FLU LIKE SYMPTOMS? NO . COUGH NO . INTEGUMENTARY: DO YOU HAVE ANY RASHES OR OPEN SORES? NO . ALLERGIC/IMMUNO: ARE YOU ALLERGIC TO IV DYE? NO . ANY NEW ALLERGIES? NO . PSYCHIATRIC: DO YOU HAVE THOUGHTS OF HURTING YOURSELF OR SOMEONE ELSE? NO . ARE YOU ABUSED, NEGLECTED, OR IN AN UNSAFE ENVIRONMENT? NO . ENDOCRINOLOGY: ARE YOU DIABETIC? NO . OTHER: DO YOU NEED ANY PRESCRIPTIONS? YES . IF YES, PLEASE LIST: ____MORPHINE . ANY NEW PROBLEMS WITH YOUR MEDICATIONS? NO . WHEN DID YOU LAST EAT? ____ . WHEN DID YOU LAST DRINK? ____ . WHAT DID YOU LAST DRINK? ____ . NAME OF PERSON DRIVING YOU HOME? ____ . DO YOU HAVE ANY OTHER QUESTIONS OR CONCERNS NO . VITAL SIGNS WT 249.6 LBS, HT 6'0, BMI 33.85 INDEX, BP 148/84 MM HG, HR 69 /MIN, RR 18 /MIN, TEMP 98.0 F, OXYGEN SAT % 98%, SAFE IN ENV? (Y/N) YES, NA INITIALS AW 1030, REVIEWED BY: TOBIN. EXAMINATION GENERAL EXAMINATION: GENERAL APPEARANCE:AWAKE,ALERT ,PLEAASANT . PSYCHAFFECT NORMAL . LUNGS:LUNG SINGH ARE CLEAR TO AUSCULTATION BILATERALLY. GOOD MOVEMENT OF AIR . HEART:S1, S2 IN A REGULAR RATE AND RHYTHM. NO SIGNIFICANT MURMURS, RUBS OR GALLOPS NOTED . ASSESSMENTS LUMBOSACRAL SPONDYLOLYSIS - M43.07 (PRIMARY) SACROILIITIS - M46.1 TREATMENT LUMBOSACRAL SPONDYLOLYSIS CONTINUE ZANAFLEX TABLET, 4 MG, 1 TABLET NEEDED, ORALLY, THREE TIMES A DAY CONTINUE IBUPROFEN TABLET, 600 MG, 1 TABLET, ORALLY, THREE TIMES A DAY NEEDED REFILL MORPHINE SULFATE TABLET, 15 MG, 1 TABLET, ORALLY, EVERY 6-8 HRS PRN PAIN MDD=2, 30 DAY(S), 60, REFILLS 0 NOTES: ISTOP REGISTRY REVIEWED AND DEMONSTRATES COMPLLIANCE. (REF #[id number] ) BRINGS IN MEDICATIONS WHICH IS APPROPRIATE FOR WHAT WAS DISPENSED. RECENT URINE TOXICOLOGY REVIEWED. NO UNAUTHORIZED MEDICATIONS. NO ILLICIT SUBSTANCES AND PRESCRIBED MEDICATIONS WERE PRESENT. URINE TOX TODAY, RISKS AND BENEFITS OF NARCOTIC/OPIOD MEDICATIONS WERE REVIEWED WITH PATIENT - THIS INCLUDES BUT IS NOT LIMITED TO RISK OF DEPENDANCE/DEVELOPMENT OF ADDICTION, MOOD DISTURBANCE AND DEPRESSION, OSTEOPOROSIS, HORMONAL AND LABIDAL CHANGES, RESPIRATORY DEPRESSION AND . PATIENT IS ADVISED NOT TO DRIVE OR DRINK ALCOHOL WHILE ON THESE MEDICATIONS. PROCEDURE CODES FA211 ESTABILISHED PATIENT [facility] CHARGE DISPOSITION & COMMUNICATION FOLLOW UP 3 MONTHS ELECTRONICALLY SIGNED BY PEG RUDOLPH ON 07/29/2018 AT 02:26 PM EDT DISCLAIMER : THIS IS A VISIT SUMMARY EXTRACTED FROM THE [employer] CHART. IT IS NOT A COPY OF THE [employer] PROGRESS NOTE. MTDD
== END ==
LOC: M PAIN 09:45
PROVIDERS: ATTEND Nurse Practitioner Family
DX: M43.07 Spondylolysis, lumbosacral region (principal); M46.1 Sacroiliitis, not elsewhere classified; G89.29 Other chronic pain; F17.210 Nicotine dependence, cigarettes, uncomplicated; Z88.6 Allergy status to analgesic agent; Z91.030 Bee allergy status; Z79.891 Long term (current) use of opiate analgesic; Z79.899 Other long term (current) drug therapy

== ENCOUNTER → 2018-11-27 | Outpatient (CLI) | payer MEDICARE, OTHER | LOC: M PAIN 10:30 | PROVIDERS: ATTEND Nurse Practitioner Family | DX: M43.07 Spondylolysis, lumbosacral region (principal); F17.210 Nicotine dependence, cigarettes, uncomplicated; Z79.891 Long term (current) use of opiate analgesic; Z79.899 Other long term (current) drug therapy; Z91.030 Bee allergy status; Z88.8 Allergy status to other drugs, medicaments and biological substances ==

== ENCOUNTER → 2019-01-14 | Outpatient (CLI) | payer MEDICARE, OTHER ==
[~2019-01-14] MED LIST changes: +BUPIVACAINE HCL 0.25% 30 ML VIAL As Ordered ONE; +ISOVUE-M 300 61% 15ML VIAL (Q9967) As Ordered ONE; +LIDOCAINE 1% SDV INJ 30 ML VIAL As Ordered ONE; -OMEP40CA2 PO; +OMEP40CA97 PO; +TRIAMCINOLONE ACETONIDE SUSP 40 MG/ML VIAL (J3301) As Ordered ONE
--- NOTE | 2019-01-14 14:54 | REP ---
Partial lumbar spine series: Three views . History: Injection procedure for pain. 43 seconds of fluoroscopy time is reported. Findings: A sequence of three fluoroscopically obtained last image hold procedural spot radiographs of the lumbar spine document needle position and contrast injection associated with injection procedure. Electronically Signed by Bry Ivy MD 01/14/2019 02:45 P
--- NOTE | 2019-01-23 01:47 | ECWPNPC ---
PATIENT NAME: KEMAR SEGURA : 1955 GENDER: MALE VISIT DATE: 01/14/2019 DISCHARGE DATE: 01/14/19 1208 VISIT LOCKED DATE TIME: PHYSICIAN: ANNAMARIE KELLEY MD RESOURCE: ANNAMARIE KELLEY MD REASON FOR APPOINTMENT 1. LFBT L3/4-L4/5-L5/S1 BILAT HISTORY OF PRESENT ILLNESS HISTORY OF PRESENT ILLNESS: PAIN THE PATIENT DESCRIBES THE PAIN... FALL RISK SCREENING: SCREENING :NO FALLS REPORTED IN THE LAST YEAR CURRENT MEDICATIONS TAKING VITAMIN B-COMPLEX TABLET ORALLY DAILY, NOTES: 01/13/19 AM TAKING FISH OIL 1000 MG CAPSULE 1 CAPSULE ORALLY ONCE A DAY, NOTES: 01/13/19AM TAKING VOLTAREN 1 % GEL TRANSDERMAL , NOTES: NONE RECENT TAKING VITAMIN D 2000 UNIT TABLET 1 TABLET ORALLY ONCE A DAY, NOTES: 01/13/19 AM TAKING CALCIUM + D 600-200 MG-UNIT TABLET 1 TABLET ORALLY TWICE A DAY, NOTES: 01/13/19 AM TAKING MORPHINE SULFATE 15 MG TABLET 1 TABLET ORALLY EVERY 6-8 HRS PRN PAIN MDD=2, NOTES: 01/12/19 TAKING ZANAFLEX 4 MG TABLET 1 TABLET NEEDED ORALLY THREE TIMES A DAY, NOTES: 01/12/19 TAKING IBUPROFEN 600 MG TABLET 1 TABLET ORALLY THREE TIMES A DAY NEEDED, NOTES: 01/12/19 MEDICATION LIST REVIEWED AND RECONCILED WITH THE PATIENT PAST MEDICAL HISTORY GERD CLUB FEET INFANT AND HAD BRACES AND CRUTCHES LOW BACK PAIN NECK PAIN LEFT SIDED NUMBNESS ALLERGIES BEE STINGS: HIVES,ITCHING NAPROSYN: HIVES, ITCHING SURGICAL HISTORY LUMBAR FUSION L-5 S1 FAMILY HISTORY FATHER: 78 YRS, DIAGNOSED WITH DIABETES, HYPERTENSION MOTHER: 56 YRS, OTHER MALIGNANT NEOPLASM OF UNSPECIFIED SITE DAD- MESOPHELIOMA, \NDAUGHTER - MURDERED. SOCIAL HISTORY GENERAL: TOBACCO USE ARE YOU A:CURRENT SMOKER HOW OFTEN DO YOU SMOKE CIGARETTES?EVERY DAY HOW SOON AFTER YOU WAKE UP DO YOU SMOKE YOUR FIRST CIGARETTE?WITHIN 5 MIN HOW MANY CIGARETTES A DAY DO YOU SMOKE?31 OR MORE 2 AND 1/2 PACKS PER DAY ARE YOU INTERESTED IN QUITTING?THINKING ABOUT QUITTING STATES HE NEEDS TO QUIT FOR SURGERY. PATIENT COUNSELED ON THE DANGERS OF TOBACCO USE AND URGED TO QUIT:11/27/2018 COUNSELED THE PATIENT ON SMOKING CESSATION, EDUCATION [id number]/06/2019 SMOKING CESSATION INFORMATION GIVEN10/16/2017 OTHERS AT HOME: NONE. 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 LANGUAGE LANGUAGES SPOKEN:FRENCH NO DOMESTIC VIOLENCE DO YOU FEEL SAFE IN YOUR ENVIRONMENT?YES RECREATIONAL DRUG USE DRUG USE?NO EXERCISE: NO REGULAR EXERCISE. LEARNING BARRIERS / SPECIAL NEEDS BARRIERS TO LEARNING?NO HEARING IMPAIRED?NO VISION IMPAIRED?YES COGNITIVELY IMPAIRED?NO :CORRECTIVE LENSES READINESS TO LEARN?YES LEARNING PREFERENCES?NO LEARNING CAPABILITIES PRESENT?YES EMOTIONAL BARRIERS?NO SPECIAL DEVICES?NO SENIOR MEDIA DIRECTOR NEEDED?NO PAIN CLINIC PFS, CLERGY, PUBLIC HEALTH REFERRALS PFS REFERRAL NEEDED?NO CLERGY REFERRAL NEEDED?NO PUBLIC HEALTH REFERRAL NEEDED?NO WAS THE PROVIDER NOTIFIED OF ANY PERTINENT INFO?YES N/A HAS THE PATIENT BEEN EDUCATED REGARDING HIS/HER PLAN OF CARE?YES HAS THE PATIENT BEEN EDUCATED REGARDING PAIN, THE RISK FOR PAIN, THE IMPORTANCE OF EFFECTIVE PAIN MANAGEMENT, AND THE PAIN ASSESSMENT PROCESS?YES LATEX QUESTIONNAIRE LATEX ALLERGY : HAVE YOU EVER DEVELOPED ANY TYPE OF REACTION AFTER HANDLING LATEX PRODUCTS SUCH RUBBER GLOVES, CONDOMS, DIAPHRAGMS, BALLOONS, SOCKS, OR UNDERWEAR?NO LATEX ALLERGY : HAVE YOU EVER DEVELOPED ANY TYPE OF REACTION DURING OR AFTER DENTAL APPOINTMENT, VAGINAL/RECTAL EXAMINATION, SURGICAL PROCEDURE, OR ANY OTHER EXPOSURE?NO DATE ASKED : 11/27/2018 LATEX RISK : HAVE YOU EVER HAD ANY DIFFICULTY BREATHING OR HIVES AFTER EATING OR HANDLING ANY FRUITS, OR VEGETABLES; SUCH KIWI, BANANAS, STONE FRUITS, OR CHESTNUTSNO LATEX RISK : DO YOU HAVE A PREVIOUS PERSONAL HISTORY OF MORE THAN NINE SURGERIES, SPINA BIFIDA, OR REPEATED CATHERIZATIONS? NO LATEX RISK : ARE YOU FREQUENTLY EXPOSED TO LATEX PRODUCTS IN YOUR OCCUPATION?NO CAFFEINE CAFFEINE USE?YES HOW OFTEN AND HOW MUCH? 12 CUPS PER DAY ADVANCE DIRECTIVE ADVANCE DIRECTIVE DISCUSSED WITH PATIENT:YES PT HAS NO ADVANCED DIRECTIVES, DECLINED INFORMATION OR ASSISTANCE AT THIS TIME. MANDAEISM [id number] EPISCOPAL MARITAL STATUS: .. 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 AD05/07/18 1315 REVIEWED WITH PT LASREVIEWED WITH PATIENT 07/07/18 1036 JSREVIEWED WITH PATIENT 01/14/19 1100 BVREVIEWED WITH PT 11/27/18 1057 NLJ. HOSPITALIZATION/MAJOR DIAGNOSTIC PROCEDURE PNEUMONIA 2013 BACK SURGERY REVIEW OF SYSTEMS REVIEWED BY: PROVIDER: . CONSTITUTIONAL: ANY CHANGE IN YOUR MEDICAL CONDITION? NO . CHILLS NO . FEVER NO . INFECTION: DO YOU HAVE NEW INFECTIONS? NO . DO YOU HAVE HISTORY OF MRSA? NO . MUSCULOSKELETAL: ANY NEW PATTERNS OF PAIN OR NUMBNESS? NO . GASTROENTEROLOGY: ANY NEW CHANGE IN BOWEL CONTROL? NO . GENITOURINARY: ANY NEW CHANGE IN BLADDER CONTROL? NO . IS THERE A CHANCE YOU COULD BE ? NO . HEMATOLOGY/LYMPH: DO YOU TAKE ANY BLOOD THINNERS? (FOR EXAMPLE- COUMADIN, PLAVIX, AGGRENOX, PLATEL, PRADAXA, OR XARELTO) NO . WHEN WAS YOUR LAST DOSE? DATE: TIME: . NEUROLOGY: HAVE YOU FALLEN IN THE PAST 12 MONTHS? YES, PREVIOUS FALLS HAVE BEEN DOCUMENTED. PT STATES ALL PREVIOUS FALLS HAVE BEEN DOCUMENTED . ANY NEW EXTREMITY NUMBNESS OR WEAKNESS? NO . CARDIOLOGY: DO YOU HAVE A PACEMAKER OR DEFIBRILLATOR? NO . RESPIRATORY: HAVE YOU BEEN SICK IN THE PAST WEEK? NO . FEVER NO . FLU LIKE SYMPTOMS? NO . COUGH NO . INTEGUMENTARY: DO YOU HAVE ANY RASHES OR OPEN SORES? NO . ALLERGIC/IMMUNO: ARE YOU ALLERGIC TO IV DYE? NO . ANY NEW ALLERGIES? NO . PSYCHIATRIC: DO YOU HAVE THOUGHTS OF HURTING YOURSELF OR SOMEONE ELSE? NO . ARE YOU ABUSED, NEGLECTED, OR IN AN UNSAFE ENVIRONMENT? NO . ENDOCRINOLOGY: ARE YOU DIABETIC? NO . OTHER: DO YOU NEED ANY PRESCRIPTIONS? NO . IF YES, PLEASE LIST: ____ . ANY NEW PROBLEMS WITH YOUR MEDICATIONS? NO . WHEN DID YOU LAST EAT? 01/13/19 1800 . WHEN DID YOU LAST DRINK? 01/14/19 0600 . WHAT DID YOU LAST DRINK? WATER . NAME OF PERSON DRIVING YOU HOME? [employer] . DO YOU HAVE ANY OTHER QUESTIONS OR CONCERNS NO . VITAL SIGNS WT 241.6 LBS, HT 6'0, BMI 32.76 INDEX, BP 135/74 MM HG, HR 66 /MIN, RR 20 /MIN, TEMP 98.3 F, OXYGEN SAT % 97%, NA INITIALS SC 10:45, REVIEWED BY: BV. ASSESSMENTS SPONDYLOSIS WITHOUT MYELOPATHY OR RADICULOPATHY, LUMBAR REGION - M47.816 (PRIMARY) SPONDYLOSIS WITHOUT MYELOPATHY OR RADICULOPATHY, LUMBOSACRAL REGION - M47.817 PROCEDURES PN LUMBAR FACET BLOCK THERAPEUTIC PRE PROCEDURE DIAGNOSIS LUMBAR SPONDYLOSIS, LUMBOSACRAL SPONDYLOSIS POST PROCEDURE DIAGNOSIS LUMBAR SPONDYLOSIS, LUMBOSACRAL SPONDYLOSIS PROCEDURE BILATERAL L3-L4, L4-L5, AND L5-S1 LUMBAR FACET THERAPEUTIC BLOCK SURGEON DR. ANNAMARIE KELLEY DYE COLORIST FORMULATOR NONE ANESTHESIA LOCAL PRE PROCEDURE NOTE THE PATIENT HAS A HISTORY OF CHRONIC LOW BACK PAIN. I EVALUATED THE PATIENT AND REVIEWED THE CHART. I WENT OVER THE RISKS, ALTERNATIVES, AND BENEFITS ASSOCIATED WITH THIS PROCEDURE. THE PATIENT WOULD LIKE TO PROCEED AND GIVES CONSENT TO PERFORM THE PROCEDURE. THE PATIENT DENIES UNEXPLAINABLE WEIGHT LOSS, FEVER, CHILLS, OR NEW CHANGES IN URINARY OR BOWEL CONTROL DESCRIPTION OF PROCEDURE THE PATIENT WAS BROUGHT TO THE PROCEDURE ROOM AND PLACED IN THE PRONE POSITION. THE LUMBOSACRAL AREA WAS CLEANED WITH CHLORAPREP SOLUTION AND DRAPED ASEPTICALLY. THE PROCEDURE WAS DONE UNDER STERILE CONDITIONS. I CHECKED LATERALITY AND THE LEVEL WHERE THE PROCEDURE WAS GOING TO BE PERFORMED WITH THE PATIENT AND THE SUPPORTING STAFF AT THE MOMENT OF THE TIME OUT IN THE PROCEDURE ROOM. UNDER FLUOROSCOPIC GUIDANCE, THE TARGET POINT WAS SELECTED AT THE RIGHT AND LEFT L3-L4, RIGHT AND LEFT L4-L5, AND RIGHT AND LEFT L5-S1 FACET JOINTS. TARGET POINT WAS SELECTED AFTER LATERAL ROTATION AND TILT OF THE MAGNIFIER OF THE C-ARM. LIDOCAINE 0.5% WAS USED TO NUMB THE SKIN AND THE SUBCUTANEOUS TISSUE BELOW IT. SPINAL NEEDLES, 22-GAUGE, WERE ADVANCED UNDER FLUOROSCOPIC GUIDANCE AND FOLLOWING PATIENT FEEDBACK UNTIL THE TARGETS WERE TOUCHED. THE POSITION OF THE NEEDLES WAS VERIFIED WITH AP AND LATERAL VIEWS. AFTER PROPER POSITION OF THE NEEDLES WAS ACHIEVED, ISOVUE-M DYE 30% 0.1 ML WAS INJECTED SHOWING ADEQUATE SPREAD OF THE DYE. THEN A SOLUTION OF 1.9 ML OF BUPIVACAINE 0.125% OF KENALOG 10 MG WAS INJECTED AT EACH SITE. THERE WAS NO EVIDENCE OF BLOOD, PARESTHESIA OR CEREBROSPINAL FLUID DURING THE PROCEDURE. THE PATIENT WAS SENT TO THE RECOVERY ROOM. THE PATIENT WAS MOVING THE EXTREMITIES AND DOING WELL. THERE WAS NO COMPLICATION DURING THE PROCEDURE. FLUOROSCOPY TIME WAS 43 SECONDS POST PROCEDURE NOTE THE PATIENT WILL BE SEEN IN A FOLLOW UP IN THE NEXT FEW WEEKS. I AM LOOKING FOR LONG LASTING PAIN RELIEF WITH THIS INTERVENTION. INSTRUCTIONS WERE GIVEN, QUESTIONS WERE ANSWERED, AND THE PATIENT EXPRESSED UNDERSTANDING AND AGREES WITH THE PLAN. I, KANWAL ALVARENGA, DOCUMENTED THE ABOVE INFORMATION ACTING A SCRIBE FOR DR. KELLEY. I HAVE REVIEWED THE ABOVE DOCUMENT, WRITTEN BY KANWAL ALVARENGA SCRIBTaye AND I VERIFY THAT IT IS ACCURATE. DIAGNOSTIC IMAGING [facility] FACET BLOCK (PAIN)[id number] PROCEDURE CODES 94360 INJ PARAVERT F JNT L/S 1 LEV, MODIFIERS: 50 [id number] INJ PARAVERT F JNT L/S 2 LEV, MODIFIERS: 50 [id number] INJ PARAVERT F JNT L/S 3 LEV, MODIFIERS: 50 [id number] RADXPS IN END [id number] PXD DISPOSITION & COMMUNICATION FOLLOW UP 3 WEEKS ELECTRONICALLY SIGNED BY ANNAMARIE KELLEY MD, ON 01/22/2019 AT 11:38 AM EST DISCLAIMER : THIS IS A VISIT SUMMARY EXTRACTED FROM THE [employer] CHART. IT IS NOT A COPY OF THE [employer] PROGRESS NOTE. MTDD
== END ==
LOC: M PAIN 10:45
PROVIDERS: ATTEND Anesthesiology
DX: M47.816 Spondylosis without myelopathy or radiculopathy, lumbar region (principal); M47.817 Spondylosis without myelopathy or radiculopathy, lumbosacral region; F17.210 Nicotine dependence, cigarettes, uncomplicated; Z88.6 Allergy status to analgesic agent; Z91.030 Bee allergy status; Z79.891 Long term (current) use of opiate analgesic; Z79.899 Other long term (current) drug therapy
CPT/HCPCS: 64493; 64494; 64495; J3301; Q9967

== ENCOUNTER → 2019-03-16 | Outpatient (CLI) | payer MEDICARE, OTHER ==
[~2019-03-16] MED LIST changes: -BUPIVACAINE HCL 0.25% 30 ML VIAL As Ordered ONE; -ISOVUE-M 300 61% 15ML VIAL (Q9967) As Ordered ONE; -LIDOCAINE 1% SDV INJ 30 ML VIAL As Ordered ONE; -TRIAMCINOLONE ACETONIDE SUSP 40 MG/ML VIAL (J3301) As Ordered ONE
--- NOTE | 2019-03-27 03:46 | ECWPNPC ---
PATIENT NAME: KEMAR SEGURA : 1955 GENDER: MALE VISIT DATE: 03/16/2019 DISCHARGE DATE: 03/16/19 1014 VISIT LOCKED DATE TIME: PHYSICIAN: ALESSIA MATHEWS RESOURCE: ALESSIA MATHEWS REASON FOR APPOINTMENT 1. 6 WEEKS HISTORY OF PRESENT ILLNESS HISTORY OF PRESENT ILLNESS: 64-YEAR-OLD GENTLEMAN BEING SEEN FOR FOLLOW-UP OF PERSISTENT NECK PAIN. SAW DR. JOEL PER OUR REFERRAL FOR SURGICAL EVALUATION. HE IS VERY UPSET TODAY ABOUT THAT VISIT. HE DIDN'T SEE DR. JOEL. HE SAW DR. JOEL'S PA. WHEN HE WAS DESCRIBING HIS SYMPTOMS OF LOWER LEFT FACIAL NUMBNESS AND LEFT ARM AND LEG PARESTHESIAS HE WAS TOLD HE WOULD NEED TO SEE A NEUROLOGIST. HE ALSO WAS SENT FOR PHYSICAL THERAPY FOR HIS NECK. BURNING, INTERMITTENT, LEFT-SIDED FACIAL NUMBNESS AND LEFT ARM AND HAND NUMBNESS BEGAN AFTER AN EPISODE OF LEFT SIDED NUMBNESS AND WEAKNESS THAT OCCURRED IN JULY 2018. HE WAS EVALUATED IN THE ER IN [facility] WHERE AN MRI OF THE NECK AND BRAIN WERE DONE. EVERYTHING WAS NORMAL. HE IS CONCERNED AND HAVING HIGH ANXIETY REGARDING HIS NECK AND NUMBNESS ISSUES. HE IS AGREEABLE TO SEE NEUROLOGY. PER DR. JOEL'S OFFICE REFERRAL IT COULD BE 3 MONTHS BEFORE HE WOULD HAVE APPROVAL THROUGH MEDICARE. RATING PAIN LEVEL 2-5 /10 VAS. PAIN THE PATIENT DESCRIBES THE PAIN... FALL RISK SCREENING: SCREENING :NO FALLS REPORTED IN THE LAST YEAR CURRENT MEDICATIONS TAKING VITAMIN B-COMPLEX TABLET ORALLY DAILY TAKING FISH OIL 1000 MG CAPSULE 1 CAPSULE ORALLY ONCE A DAY TAKING VOLTAREN 1 % GEL TRANSDERMAL TAKING VITAMIN D 2000 UNIT TABLET 1 TABLET ORALLY ONCE A DAY TAKING CALCIUM + D 600-200 MG-UNIT TABLET 1 TABLET ORALLY TWICE A DAY TAKING MORPHINE SULFATE 15 MG TABLET 1 TABLET ORALLY EVERY 6-8 HRS PRN PAIN MDD=2 TAKING ZANAFLEX 4 MG TABLET 1 TABLET NEEDED ORALLY THREE TIMES A DAY TAKING IBUPROFEN 600 MG TABLET 1 TABLET ORALLY THREE TIMES A DAY NEEDED MEDICATION LIST REVIEWED AND RECONCILED WITH THE PATIENT PAST MEDICAL HISTORY GERD CLUB FEET AND HAD BRACES AND CRUTCHES LOW BACK PAIN NECK PAIN LEFT SIDED NUMBNESS ALLERGIES BEE STINGS: HIVES,ITCHING NAPROSYN: HIVES, ITCHING SURGICAL HISTORY LUMBAR FUSION L-5 S1 FAMILY HISTORY FATHER: 78 YRS, DIAGNOSED WITH HYPERTENSION, DIABETES MOTHER: 56 YRS, OTHER MALIGNANT NEOPLASM OF UNSPECIFIED SITE DAD- MESOPHELIOMA, \NDAUGHTER - MURDERED. SOCIAL HISTORY GENERAL: TOBACCO USE ARE YOU A:CURRENT SMOKER ARE YOU INTERESTED IN QUITTING?THINKING ABOUT QUITTING STATES HE NEEDS TO QUIT FOR SURGERY. COUNSELED THE PATIENT ON SMOKING CESSATION, EDUCATION EXKEARMD19/13/2020 HOW MANY CIGARETTES A DAY DO YOU SMOKE?31 OR MORE 2 AND 1/2 PACKS PER DAY HOW SOON AFTER YOU WAKE UP DO YOU SMOKE YOUR FIRST CIGARETTE?WITHIN 5 MIN HOW OFTEN DO YOU SMOKE CIGARETTES?EVERY DAY PATIENT COUNSELED ON THE DANGERS OF TOBACCO USE AND URGED TO QUIT:03/16/2019 SMOKING CESSATION INFORMATION GIVEN10/16/2017 OTHERS AT HOME: NONE. 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 LANGUAGE LANGUAGES SPOKEN:MALAYSIAN NO DOMESTIC VIOLENCE DO YOU FEEL SAFE IN YOUR ENVIRONMENT?YES RECREATIONAL DRUG USE DRUG USE?NO EXERCISE: NO REGULAR EXERCISE. LEARNING BARRIERS / SPECIAL NEEDS BARRIERS TO LEARNING?NO HEARING IMPAIRED?NO VISION IMPAIRED?YES COGNITIVELY IMPAIRED?NO :CORRECTIVE LENSES READINESS TO LEARN?YES LEARNING PREFERENCES?NO LEARNING CAPABILITIES PRESENT?YES EMOTIONAL BARRIERS?NO SPECIAL DEVICES?NO LINE MAINTENANCE NEEDED?NO PAIN CLINIC PFS, CLERGY, PUBLIC HEALTH REFERRALS PFS REFERRAL NEEDED?NO CLERGY REFERRAL NEEDED?NO PUBLIC HEALTH REFERRAL NEEDED?NO WAS THE PROVIDER NOTIFIED OF ANY PERTINENT INFO?YES N/A HAS THE PATIENT BEEN EDUCATED REGARDING HIS/HER PLAN OF CARE?YES HAS THE PATIENT BEEN EDUCATED REGARDING PAIN, THE RISK FOR PAIN, THE IMPORTANCE OF EFFECTIVE PAIN MANAGEMENT, AND THE PAIN ASSESSMENT PROCESS?YES LATEX QUESTIONNAIRE LATEX ALLERGY : HAVE YOU EVER DEVELOPED ANY TYPE OF REACTION AFTER HANDLING LATEX PRODUCTS SUCH RUBBER GLOVES, CONDOMS, DIAPHRAGMS, BALLOONS, SOCKS, OR UNDERWEAR?NO LATEX ALLERGY : HAVE YOU EVER DEVELOPED ANY TYPE OF REACTION DURING OR AFTER DENTAL APPOINTMENT, VAGINAL/RECTAL EXAMINATION, SURGICAL PROCEDURE, OR ANY OTHER EXPOSURE?NO LATEX RISK : HAVE YOU EVER HAD ANY DIFFICULTY BREATHING OR HIVES AFTER EATING OR HANDLING ANY FRUITS, OR VEGETABLES; SUCH KIWI, BANANAS, STONE FRUITS, OR CHESTNUTSNO LATEX RISK : DO YOU HAVE A PREVIOUS PERSONAL HISTORY OF MORE THAN NINE SURGERIES, SPINA BIFIDA, OR REPEATED CATHERIZATIONS? NO LATEX RISK : ARE YOU FREQUENTLY EXPOSED TO LATEX PRODUCTS IN YOUR OCCUPATION?NO DATE ASKED : 11/27/2018 CAFFEINE CAFFEINE USE?YES HOW OFTEN AND HOW MUCH? 12 CUPS PER DAY ADVANCE DIRECTIVE ADVANCE DIRECTIVE DISCUSSED WITH PATIENT:YES 03/16/2019 PT HAS NO ADVANCED DIRECTIVES, DECLINED INFORMATION OR ASSISTANCE AT THIS TIME. JS [employer] [id number] PENTECOSTALISM MARITAL STATUS: .. 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 AD05/07/18 1315 REVIEWED WITH PT LASREVIEWED WITH PATIENT 07/07/18 1036 JSREVIEWED WITH PATIENT 01/14/19 1100 BVREVIEWED WITH PT 11/27/18 1057 NLJREVIEWED WITH PATIENT 02/02/19 1051 JSREVIEWED WITH PATIENT 03/16/2019 0948 JS. HOSPITALIZATION/MAJOR DIAGNOSTIC PROCEDURE PNEUMONIA 2012 BACK SURGERY REVIEW OF SYSTEMS REVIEWED BY: PROVIDER: ALESSIA RUVALCABA . CONSTITUTIONAL: ANY CHANGE IN YOUR MEDICAL CONDITION? YES, POSSIBLE DIAGNOSIS RELATED TO NUMBNESS TO FACE - DR. JOEL'S PA STATES IT MAY BE FROM THE BRAIN AND NOT NECK . CHILLS NO . FEVER NO . INFECTION: DO YOU HAVE NEW INFECTIONS? NO . DO YOU HAVE HISTORY OF MRSA? NO . MUSCULOSKELETAL: ANY NEW PATTERNS OF PAIN OR NUMBNESS? NO . GASTROENTEROLOGY: ANY NEW CHANGE IN BOWEL CONTROL? NO . GENITOURINARY: ANY NEW CHANGE IN BLADDER CONTROL? NO . IS THERE A CHANCE YOU COULD BE ? NO . HEMATOLOGY/LYMPH: DO YOU TAKE ANY BLOOD THINNERS? (FOR EXAMPLE- COUMADIN, PLAVIX, AGGRENOX, PLATEL, PRADAXA, OR XARELTO) NO . WHEN WAS YOUR LAST DOSE? DATE: TIME: . NEUROLOGY: HAVE YOU FALLEN IN THE PAST 12 MONTHS? NO . ANY NEW EXTREMITY NUMBNESS OR WEAKNESS? NO . CARDIOLOGY: DO YOU HAVE A PACEMAKER OR DEFIBRILLATOR? NO . RESPIRATORY: HAVE YOU BEEN SICK IN THE PAST WEEK? NO . FEVER NO . FLU LIKE SYMPTOMS? NO . COUGH NO . INTEGUMENTARY: DO YOU HAVE ANY RASHES OR OPEN SORES? NO . ALLERGIC/IMMUNO: ARE YOU ALLERGIC TO IV DYE? NO . ANY NEW ALLERGIES? NO . PSYCHIATRIC: DO YOU HAVE THOUGHTS OF HURTING YOURSELF OR SOMEONE ELSE? NO . ARE YOU ABUSED, NEGLECTED, OR IN AN UNSAFE ENVIRONMENT? NO . ENDOCRINOLOGY: ARE YOU DIABETIC? NO . OTHER: DO YOU NEED ANY PRESCRIPTIONS? NO . IF YES, PLEASE LIST: ____ . ANY NEW PROBLEMS WITH YOUR MEDICATIONS? NO . WHEN DID YOU LAST EAT? ____ . WHEN DID YOU LAST DRINK? ____ . WHAT DID YOU LAST DRINK? ____ . NAME OF PERSON DRIVING YOU HOME? ____ . DO YOU HAVE ANY OTHER QUESTIONS OR CONCERNS YES, CONCERNED ABOUT BEING TOLD BY THE PA AT DR. JOEL'S OFFICE THAT IT MAY BE FROM HIS BRAIN AND NOT HIS NECK - MAY TAKE UP TO 3 MONTHS TO SEE NEURO . VITAL SIGNS WT 253.2 LBS, HT 6'0, BMI 34.34 INDEX, BP 147/86 MM HG, HR 61 /MIN, RR 20 /MIN, TEMP 97.5 F, OXYGEN SAT % 97%, SAFE IN ENV? (Y/N) YES, NA INITIALS WV 09:46, REVIEWED BY: TOBIN. EXAMINATION GENERAL EXAMINATION: GENERALNO ACUTE DISTRESS, WELL NOURISHED AND HYDRATED. PSYCH AGITATED BUT COOPERATIVE. HEENT:EOMI, NO SCLERAL ICTERUS, NARES PATENT, ORAL MUCOSA MOIST. NECK:NO LYMPHADENOPATHY, SUPPLE, NO THYROMEGALLY, NO JVD OR BRUITS. LUNGS:CLEAR TO AUSCULTATION BILATERALLY, NO WHEEZES, RHONCHI, RALES. HEART:NO MURMURS, REGULAR RATE AND RHYTHM. MUSCULOSKELETAL:NORMAL RANGE OF MOTION.MST 5/5 UPPER/LOWER EXTREMITIES. NEUROLOGIC EXAM: CN'S II-XII GROSSLY INTACT NORMAL SENSATION LIGHT TOUCH FACE/ARMS/LEGS BILAT.. ASSESSMENTS LUMBOSACRAL SPONDYLOLYSIS - M43.07 (PRIMARY) CERVICAL DISC DISORDER WITH RADICULOPATHY, CERVICOTHORACIC REGION - M50.13 TREATMENT LUMBOSACRAL SPONDYLOLYSIS NOTES: HE WILL FOLLOW UP WITH DR. IRWIN OFFICE REGARDING NEUROLOGY REFERRAL.IF HE IS HAVING DIFFICULTIES GETTING THIS SHYANN TOLD HIM TO CONTACT US AND WE COULD MAKE REFERRAL.HE FEELS HE MAY COMPLY WITH PT THEY HAVE ORDERED. PROCEDURE CODES FA211 ESTABILISHED PATIENT [facility] FACILITY CHARGE DISPOSITION & COMMUNICATION FOLLOW UP 4 WEEKS ELECTRONICALLY SIGNED BY PEG RUDOLPH ON 03/26/2019 AT 01:36 PM EST DISCLAIMER : THIS IS A VISIT SUMMARY EXTRACTED FROM THE [employer] CHART. IT IS NOT A COPY OF THE [employer] PROGRESS NOTE. MTDD
== END ==
LOC: M PAIN 09:15
PROVIDERS: ATTEND Nurse Practitioner Family
DX: M43.07 Spondylolysis, lumbosacral region (principal); M50.13 Cervical disc disorder with radiculopathy, cervicothoracic region; F17.210 Nicotine dependence, cigarettes, uncomplicated; Z88.6 Allergy status to analgesic agent; Z91.030 Bee allergy status; Z79.891 Long term (current) use of opiate analgesic; Z79.899 Other long term (current) drug therapy

== ENCOUNTER → 2019-04-27 | Outpatient (CLI) | payer MEDICARE, OTHER ==
--- NOTE | 2019-04-29 04:52 | ECWPNPC ---
PATIENT NAME: KEMAR SEGURA : 1955 GENDER: MALE VISIT DATE: 04/27/2019 DISCHARGE DATE: 04/27/19 1038 VISIT LOCKED DATE TIME: PHYSICIAN: ALESSIA MATHEWS RESOURCE: ALESSIA MATHEWS REASON FOR APPOINTMENT 1. MED AB-BACK/NECK-6 WKS HISTORY OF PRESENT ILLNESS HISTORY OF PRESENT ILLNESS: HERE FOR ROUTINE FOLLOW-UP AND MEDICINE MANAGEMENT OF PERSISTENT NECK PAIN AND LOW BACK PAIN. CONTINUES WITH EPISODES OF LEFT SIDED NUMBNESS MAINLY IN HIS ARM AND HAND. HE WAS REFERRED TO NEUROLOGY BY DR. JOEL AND WILL BE SEEING THEM IN THE NEXT FEW WEEKS. HAS BEEN HAVING EPISODES OF LEFT FACIAL NUMBNESS THAT HAS BECOME LESS FREQUENT OVER THE PAST MONTH. HAD AN EPISODE OF LEFT-SIDED NUMBNESS AND SEEN AT THE ER IN JULY 2018. ATTENDING PHYSICAL THERAPY. RATING PAIN LEVEL A 2-5/10 VAS. PAIN THE PATIENT DESCRIBES THE PAIN... FALL RISK SCREENING: SCREENING :NO FALLS REPORTED IN THE LAST YEAR CURRENT MEDICATIONS TAKING VITAMIN B-COMPLEX TABLET ORALLY DAILY TAKING FISH OIL 1000 MG CAPSULE 1 CAPSULE ORALLY ONCE A DAY TAKING VOLTAREN 1 % GEL TRANSDERMAL TAKING VITAMIN D 2000 UNIT TABLET 1 TABLET ORALLY ONCE A DAY TAKING CALCIUM + D 600-200 MG-UNIT TABLET 1 TABLET ORALLY TWICE A DAY TAKING MORPHINE SULFATE 15 MG TABLET 1 TABLET ORALLY EVERY 6-8 HRS PRN PAIN MDD=2 TAKING ZANAFLEX 4 MG TABLET 1 TABLET NEEDED ORALLY THREE TIMES A DAY TAKING IBUPROFEN 600 MG TABLET 1 TABLET ORALLY THREE TIMES A DAY NEEDED PAST MEDICAL HISTORY GERD CLUB FEET INFANT AND HAD BRACES AND CRUTCHES LOW BACK PAIN NECK PAIN LEFT SIDED NUMBNESS ALLERGIES BEE STINGS: HIVES,ITCHING NAPROSYN: HIVES, ITCHING SURGICAL HISTORY LUMBAR FUSION L-5 S1 FAMILY HISTORY FATHER: 78 YRS, DIAGNOSED WITH DIABETES, HYPERTENSION MOTHER: 56 YRS, OTHER MALIGNANT NEOPLASM OF UNSPECIFIED SITE DAD- MESOPHELIOMA, \NDAUGHTER - MURDERED. SOCIAL HISTORY GENERAL: TOBACCO USE ARE YOU A:CURRENT SMOKER HOW OFTEN DO YOU SMOKE CIGARETTES?EVERY DAY HOW SOON AFTER YOU WAKE UP DO YOU SMOKE YOUR FIRST CIGARETTE?WITHIN 5 MIN HOW MANY CIGARETTES A DAY DO YOU SMOKE?31 OR MORE 2 AND 1/2 PACKS PER DAY ARE YOU INTERESTED IN QUITTING?THINKING ABOUT QUITTING STATES HE NEEDS TO QUIT FOR SURGERY. PATIENT COUNSELED ON THE DANGERS OF TOBACCO USE AND URGED TO QUIT:03/16/2019 COUNSELED THE PATIENT ON SMOKING CESSATION, EDUCATION [id number]/13/2020 SMOKING CESSATION INFORMATION GIVEN10/16/2017 OTHERS AT HOME: NONE. 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 LANGUAGE LANGUAGES SPOKEN:TAJIK NO DOMESTIC VIOLENCE DO YOU FEEL SAFE IN YOUR ENVIRONMENT?YES RECREATIONAL DRUG USE DRUG USE?NO EXERCISE: NO REGULAR EXERCISE. LEARNING BARRIERS / SPECIAL NEEDS BARRIERS TO LEARNING?NO HEARING IMPAIRED?NO VISION IMPAIRED?YES COGNITIVELY IMPAIRED?NO :CORRECTIVE LENSES READINESS TO LEARN?YES LEARNING PREFERENCES?NO LEARNING CAPABILITIES PRESENT?YES EMOTIONAL BARRIERS?NO SPECIAL DEVICES?NO REFERRAL NURSE NEEDED?NO PAIN CLINIC PFS, CLERGY, PUBLIC HEALTH REFERRALS PFS REFERRAL NEEDED?NO CLERGY REFERRAL NEEDED?NO PUBLIC HEALTH REFERRAL NEEDED?NO WAS THE PROVIDER NOTIFIED OF ANY PERTINENT INFO?YES N/A HAS THE PATIENT BEEN EDUCATED REGARDING HIS/HER PLAN OF CARE?YES HAS THE PATIENT BEEN EDUCATED REGARDING PAIN, THE RISK FOR PAIN, THE IMPORTANCE OF EFFECTIVE PAIN MANAGEMENT, AND THE PAIN ASSESSMENT PROCESS?YES LATEX QUESTIONNAIRE LATEX ALLERGY : HAVE YOU EVER DEVELOPED ANY TYPE OF REACTION AFTER HANDLING LATEX PRODUCTS SUCH RUBBER GLOVES, CONDOMS, DIAPHRAGMS, BALLOONS, SOCKS, OR UNDERWEAR?NO LATEX ALLERGY : HAVE YOU EVER DEVELOPED ANY TYPE OF REACTION DURING OR AFTER DENTAL APPOINTMENT, VAGINAL/RECTAL EXAMINATION, SURGICAL PROCEDURE, OR ANY OTHER EXPOSURE?NO DATE ASKED : 11/27/2018 LATEX RISK : HAVE YOU EVER HAD ANY DIFFICULTY BREATHING OR HIVES AFTER EATING OR HANDLING ANY FRUITS, OR VEGETABLES; SUCH KIWI, BANANAS, STONE FRUITS, OR CHESTNUTSNO LATEX RISK : DO YOU HAVE A PREVIOUS PERSONAL HISTORY OF MORE THAN NINE SURGERIES, SPINA BIFIDA, OR REPEATED CATHERIZATIONS? NO LATEX RISK : ARE YOU FREQUENTLY EXPOSED TO LATEX PRODUCTS IN YOUR OCCUPATION?NO CAFFEINE CAFFEINE USE?YES HOW OFTEN AND HOW MUCH? 12 CUPS PER DAY ADVANCE DIRECTIVE ADVANCE DIRECTIVE DISCUSSED WITH PATIENT:YES 03/16/2019 PT HAS NO ADVANCED DIRECTIVES, DECLINED INFORMATION OR ASSISTANCE AT THIS TIME. JS CHEON[employer] [id number] ROMAN CATHOLIC MARITAL STATUS: .. 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 AD05/07/18 1315 REVIEWED WITH PT LASREVIEWED WITH PATIENT 07/07/18 1036 JSREVIEWED WITH PATIENT 01/14/19 1100 BVREVIEWED WITH PT 11/27/18 1057 NLJREVIEWED WITH PATIENT 02/02/19 1051 JSREVIEWED WITH PATIENT 03/16/2019 0948 JS. HOSPITALIZATION/MAJOR DIAGNOSTIC PROCEDURE PNEUMONIA 2013 BACK SURGERY REVIEW OF SYSTEMS REVIEWED BY: PROVIDER: ALESSIA RUVALCABA . CONSTITUTIONAL: ANY CHANGE IN YOUR MEDICAL CONDITION? NO . CHILLS NO . FEVER NO . INFECTION: DO YOU HAVE NEW INFECTIONS? NO . DO YOU HAVE HISTORY OF MRSA? NO . MUSCULOSKELETAL: ANY NEW PATTERNS OF PAIN OR NUMBNESS? YES . GASTROENTEROLOGY: ANY NEW CHANGE IN BOWEL CONTROL? NO . GENITOURINARY: ANY NEW CHANGE IN BLADDER CONTROL? NO . IS THERE A CHANCE YOU COULD BE ? NO . HEMATOLOGY/LYMPH: DO YOU TAKE ANY BLOOD THINNERS? (FOR EXAMPLE- COUMADIN, PLAVIX, AGGRENOX, PLATEL, PRADAXA, OR XARELTO) NO . WHEN WAS YOUR LAST DOSE? DATE: TIME: . NEUROLOGY: HAVE YOU FALLEN IN THE PAST 12 MONTHS? NO . ANY NEW EXTREMITY NUMBNESS OR WEAKNESS? YES SINCE JULY, INTERMITTANT NUMBNESS LEFT HAND, AND ALSO REPORTS A NEW NUMBNESS IN LEFT ABDOMEN/CHEST AREA. HE THINKS IT IS FROM HIS NECK, SEES A SURGEON FOR THIS WHO IS REFERRING HIM TO A NEUROLOGIST . CARDIOLOGY: DO YOU HAVE A PACEMAKER OR DEFIBRILLATOR? NO . RESPIRATORY: HAVE YOU BEEN SICK IN THE PAST WEEK? NO . FEVER NO . FLU LIKE SYMPTOMS? NO . COUGH NO . INTEGUMENTARY: DO YOU HAVE ANY RASHES OR OPEN SORES? NO . ALLERGIC/IMMUNO: ARE YOU ALLERGIC TO IV DYE? NO . ANY NEW ALLERGIES? NO . PSYCHIATRIC: DO YOU HAVE THOUGHTS OF HURTING YOURSELF OR SOMEONE ELSE? NO . ARE YOU ABUSED, NEGLECTED, OR IN AN UNSAFE ENVIRONMENT? NO . ENDOCRINOLOGY: ARE YOU DIABETIC? NO . OTHER: DO YOU NEED ANY PRESCRIPTIONS? YES . IF YES, PLEASE LIST: MORPHINE, MUSCLE RELAXER . ANY NEW PROBLEMS WITH YOUR MEDICATIONS? NO . WHEN DID YOU LAST EAT? ____ . WHEN DID YOU LAST DRINK? ____ . WHAT DID YOU LAST DRINK? ____ . NAME OF PERSON DRIVING YOU HOME? ____ . DO YOU HAVE ANY OTHER QUESTIONS OR CONCERNS NO . VITAL SIGNS WT 263.8 LBS, HT 6'0, BMI 35.77 INDEX, BP 167/74 MM HG, HR 58 /MIN, RR 18 /MIN, TEMP 97.2 F, OXYGEN SAT % 96%, NA INITIALS AW 0927. EXAMINATION GENERAL EXAMINATION: GENERALAWAKE,ALERT ,PLEASANT . PSYCHAFFECT NORMAL . LUNGS:LUNG SINGH ARE CLEAR TO AUSCULTATION BILATERALLY. GOOD MOVEMENT OF AIR . HEART:S1, S2 IN A REGULAR RATE AND RHYTHM. NO SIGNIFICANT MURMURS, RUBS OR GALLOPS NOTED . 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 (REF # ) BRINGS IN MEDICATIONS WHICH IS APPROPRIATE FOR WHAT WAS DISPENSED. RECENT URINE TOXICOLOGY REVIEWED. NO UNAUTHORIZED MEDICATIONS. NO ILLICIT SUBSTANCES AND PRESCRIBED MEDICATIONS WERE PRESENT. URINE TOX TODAY, RISKS OF NARCOTIC/OPIOD MEDICATIONS INCLUDES BUT IS NOT LIMITED TO RISK OF DEPENDANCE/DEVELOPMENT OF ADDICTION, MOOD DISTURBANCE AND DEPRESSION, OSTEOPOROSIS, HORMONAL AND LABIDAL CHANGES, RESPIRATORY DEPRESSION AND . PATIENT IS ADVISED NOT TO DRIVE OR DRINK ALCOHOL WHILE ON THESE MEDICATIONS. PROCEDURE CODES FA211 ESTABILISHED PATIENT [facility] CHARGE DISPOSITION & COMMUNICATION FOLLOW UP 2 MONTHS ELECTRONICALLY SIGNED BY PEG RUDOLPH ON 04/28/2019 AT 09:48 AM EST DISCLAIMER : THIS IS A VISIT SUMMARY EXTRACTED FROM THE [employer] CHART. IT IS NOT A COPY OF THE [employer] PROGRESS NOTE. KEITH
== END ==
LOC: M PAIN 09:15
PROVIDERS: ATTEND Nurse Practitioner Family
DX: M43.07 Spondylolysis, lumbosacral region (principal); M50.13 Cervical disc disorder with radiculopathy, cervicothoracic region; F17.210 Nicotine dependence, cigarettes, uncomplicated; Z79.891 Long term (current) use of opiate analgesic; Z79.899 Other long term (current) drug therapy; Z88.6 Allergy status to analgesic agent; Z91.030 Bee allergy status

== ENCOUNTER → 2019-05-19 | Outpatient (REF) | payer MEDICARE, OTHER ==
[2019-05-20 14:07] LABS: ANTINUCLEAR ANTIBODIES DIRECT Negative (Negative)
== END ==
LOC: M LABNEURO 13:03
PROVIDERS: ATTEND Psychiatry & Neurology Neurology
DX: R51 Headache (principal)

== ENCOUNTER → 2019-06-26 | Outpatient (CLI) | payer MEDICARE, OTHER ==
--- NOTE | 2019-06-30 05:25 | ECWPNPC ---
PATIENT NAME: KEMAR SEGURA : 1955 GENDER: MALE VISIT DATE: 06/26/2019 DISCHARGE DATE: 06/26/19 1107 VISIT LOCKED DATE TIME: PHYSICIAN: ALESSIA MATHEWS RESOURCE: ALESSIA MATHEWS REASON FOR APPOINTMENT 1. MED AB-BACK/NECK HISTORY OF PRESENT ILLNESS HISTORY OF PRESENT ILLNESS: PATIENT IS AGREEABLE TO TELEPHONE VISIT TODAY. SUFFERS FROM PERSISTENT NECK AND LOW BACK PAIN. CHIEF AREA OF PAIN IS NECK. DESCRIBES PAIN BURNING AND THROBBING. RATING PAIN LEVEL A 2/10 VAS. FINDS CURRENT MEDICATION SOMEWHAT HELPFUL AT REDUCING PAIN AND KEEPING HIM FUNCTIONAL. HAS BEEN FOLLOWING WITH NEUROLOGY WITH STUDIES PENDING. HE IS TELLING ME THAT NEUROLOGY FEELS HIS PROBLEMS WITH NECK PAIN GOING DOWN INTO THE ARM ARE RELATED TO HIS NECK. HE ALSO MENTIONS THAT THEY FEEL THAT HE MAY HAVE SUFFERED A TIA. PAIN THE PATIENT DESCRIBES THE PAIN... FALL RISK SCREENING: SCREENING :NO FALLS REPORTED IN THE LAST YEAR CURRENT MEDICATIONS TAKING VITAMIN B-COMPLEX TABLET ORALLY DAILY TAKING FISH OIL 1000 MG CAPSULE 1 CAPSULE ORALLY ONCE A DAY TAKING VOLTAREN 1 % GEL TRANSDERMAL TAKING VITAMIN D 2000 UNIT TABLET 1 TABLET ORALLY ONCE A DAY TAKING CALCIUM + D 600-200 MG-UNIT TABLET 1 TABLET ORALLY TWICE A DAY TAKING ZANAFLEX 4 MG TABLET 1 TABLET NEEDED ORALLY THREE TIMES A DAY TAKING IBUPROFEN 600 MG TABLET 1 TABLET ORALLY THREE TIMES A DAY NEEDED TAKING MORPHINE SULFATE 15 MG TABLET 1 TABLET ORALLY EVERY 6-8 HRS PRN PAIN MDD=2 TAKING ASPIR-LOW 81 MG TABLET DELAYED RELEASE 1 TABLET ORALLY ONCE A DAY MEDICATION LIST REVIEWED AND RECONCILED WITH THE PATIENT PAST MEDICAL HISTORY GERD CLUB FEET INFANT AND HAD BRACES AND CRUTCHES LOW BACK PAIN NECK PAIN LEFT SIDED NUMBNESS ALLERGIES BEE STINGS: HIVES,ITCHING NAPROSYN: HIVES, ITCHING SURGICAL HISTORY LUMBAR FUSION L-5 S1 EGD 04/2019 FAMILY HISTORY FATHER: 78 YRS, DIAGNOSED WITH DIABETES, HYPERTENSION MOTHER: 56 YRS, OTHER MALIGNANT NEOPLASM OF UNSPECIFIED SITE DAD- MESOPHELIOMA, \NDAUGHTER - MURDERED. SOCIAL HISTORY GENERAL: TOBACCO USE ARE YOU A:CURRENT SMOKER ARE YOU INTERESTED IN QUITTING?THINKING ABOUT QUITTING STATES HE NEEDS TO QUIT FOR SURGERY. COUNSELED THE PATIENT ON SMOKING CESSATION, EDUCATION [id number]/13/2020 HOW MANY CIGARETTES A DAY DO YOU SMOKE?31 OR MORE 2 AND 1/2 PACKS PER DAY HOW SOON AFTER YOU WAKE UP DO YOU SMOKE YOUR FIRST CIGARETTE?WITHIN 5 MIN HOW OFTEN DO YOU SMOKE CIGARETTES?EVERY DAY PATIENT COUNSELED ON THE DANGERS OF TOBACCO USE AND URGED TO QUIT:06/26/2019 SMOKING CESSATION INFORMATION GIVEN10/16/2017 LATEX QUESTIONNAIRE LATEX ALLERGY : HAVE YOU EVER DEVELOPED ANY TYPE OF REACTION AFTER HANDLING LATEX PRODUCTS SUCH RUBBER GLOVES, CONDOMS, DIAPHRAGMS, BALLOONS, SOCKS, OR UNDERWEAR?NO LATEX ALLERGY : HAVE YOU EVER DEVELOPED ANY TYPE OF REACTION DURING OR AFTER DENTAL APPOINTMENT, VAGINAL/RECTAL EXAMINATION, SURGICAL PROCEDURE, OR ANY OTHER EXPOSURE?NO DATE ASKED : 11/27/2018 LATEX RISK : HAVE YOU EVER HAD ANY DIFFICULTY BREATHING OR HIVES AFTER EATING OR HANDLING ANY FRUITS, OR VEGETABLES; SUCH KIWI, BANANAS, STONE FRUITS, OR CHESTNUTSNO LATEX RISK : DO YOU HAVE A PREVIOUS PERSONAL HISTORY OF MORE THAN NINE SURGERIES, SPINA BIFIDA, OR REPEATED CATHERIZATIONS? NO LATEX RISK : ARE YOU FREQUENTLY EXPOSED TO LATEX PRODUCTS IN YOUR OCCUPATION?NO ALCOHOL SCREENING DID YOU HAVE A DRINK CONTAINING ALCOHOL IN THE PAST YEAR?NO POINTS0 INTERPRETATIONNEGATIVE RECREATIONAL DRUG USE DRUG USE?NO CAFFEINE CAFFEINE USE?YES HOW OFTEN AND HOW MUCH? 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 EXERCISE: NO REGULAR EXERCISE. MARITAL STATUS: .. OTHERS AT HOME: NONE. NEW PATIENT PAIN DIARY TODAY'S VISITNOTES PATIENT DESCRIBES PAIN :BURNING, HAVE IT ALL THE TIME, THROBBING FROM 0-10, WHAT LEVEL IS YOUR PAIN TODAY?2 PAIN CLINIC PFS, CLERGY, PUBLIC HEALTH REFERRALS PFS REFERRAL NEEDED?NO CLERGY REFERRAL NEEDED?NO PUBLIC HEALTH REFERRAL NEEDED?NO WAS THE PROVIDER NOTIFIED OF ANY PERTINENT INFO?YES N/A HAS THE PATIENT BEEN EDUCATED REGARDING HIS/HER PLAN OF CARE?YES HAS THE PATIENT BEEN EDUCATED REGARDING PAIN, THE RISK FOR PAIN, THE IMPORTANCE OF EFFECTIVE PAIN MANAGEMENT, AND THE PAIN ASSESSMENT PROCESS?YES ADVANCE DIRECTIVE ADVANCE DIRECTIVE DISCUSSED WITH PATIENT:YES 03/16/2019 PT HAS NO ADVANCED DIRECTIVES, DECLINED INFORMATION OR ASSISTANCE AT THIS TIME. JS REVIEWED WITH PT 01/03/18 BVREVIEWED WITH PT 03/06/18 1230 LAS05/01/18 REVIEWED WITH PT. AD05/07/18 1315 REVIEWED WITH PT LASREVIEWED WITH PATIENT 07/07/18 1036 JSREVIEWED WITH PATIENT 01/14/19 1100 BVREVIEWED WITH PT 11/27/18 1057 NLJREVIEWED WITH PATIENT 02/02/19 1051 JSREVIEWED WITH PATIENT 03/16/2019 0948 JS. HOSPITALIZATION/MAJOR DIAGNOSTIC PROCEDURE PNEUMONIA 2013 BACK SURGERY REVIEW OF SYSTEMS REVIEWED BY: PROVIDER: ALESSIA RUVALCABA . CONSTITUTIONAL: ANY CHANGE IN YOUR MEDICAL CONDITION? NO . CHILLS NO . FEVER NO . INFECTION: DO YOU HAVE NEW INFECTIONS? NO . DO YOU HAVE HISTORY OF MRSA? NO . MUSCULOSKELETAL: ANY NEW PATTERNS OF PAIN OR NUMBNESS? NO- STATES NO NEW PAIN, STATES HE CONTINUES TO HAVE PAIN IN HIS NECK DOWN TO UPPER BACK THAT RADIATES DOWN HIS LEFT ARM INOT HIS HAND. . GASTROENTEROLOGY: ANY NEW CHANGE IN BOWEL CONTROL? NO . GENITOURINARY: ANY NEW CHANGE IN BLADDER CONTROL? NO . IS THERE A CHANCE YOU COULD BE ? NO . HEMATOLOGY/LYMPH: DO YOU TAKE ANY BLOOD THINNERS? (FOR EXAMPLE- COUMADIN, PLAVIX, AGGRENOX, PLATEL, PRADAXA, OR XARELTO) NO . WHEN WAS YOUR LAST DOSE? DATE: TIME: . NEUROLOGY: HAVE YOU FALLEN IN THE PAST 12 MONTHS? NO . ANY NEW EXTREMITY NUMBNESS OR WEAKNESS? NO . CARDIOLOGY: DO YOU HAVE A PACEMAKER OR DEFIBRILLATOR? NO . RESPIRATORY: HAVE YOU BEEN SICK IN THE PAST WEEK? NO . FEVER NO . FLU LIKE SYMPTOMS? NO . COUGH NO . INTEGUMENTARY: DO YOU HAVE ANY RASHES OR OPEN SORES? NO . ALLERGIC/IMMUNO: ARE YOU ALLERGIC TO IV DYE? NO . ANY NEW ALLERGIES? NO . PSYCHIATRIC: DO YOU HAVE THOUGHTS OF HURTING YOURSELF OR SOMEONE ELSE? NO . ARE YOU ABUSED, NEGLECTED, OR IN AN UNSAFE ENVIRONMENT? NO . ENDOCRINOLOGY: ARE YOU DIABETIC? NO . OTHER: DO YOU NEED ANY PRESCRIPTIONS? NO . IF YES, PLEASE LIST: ____ . ANY NEW PROBLEMS WITH YOUR MEDICATIONS? NO . WHEN DID YOU LAST EAT? ____ . WHEN DID YOU LAST DRINK? ____ . WHAT DID YOU LAST DRINK? ____ . NAME OF PERSON DRIVING YOU HOME? ____ . DO YOU HAVE ANY OTHER QUESTIONS OR CONCERNS NO . 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 NO UNAUTHORIZED MEDICATIONS. NO ILLICIT SUBSTANCES AND PRESCRIBED MEDICATIONS WERE PRESENT. OTHERS NOTES: PATIENT CONSENTS TO TELEPHONE VISIT. VITAL SIGNS NOT OBTAINED DUE TO TELEPHONE VISIT. 06/26/2019 1020 NLJ. DISPOSITION & COMMUNICATION FOLLOW UP 3 MONTHS (REASON: NECK/LBP/MED MGMNT) ELECTRONICALLY SIGNED BY PEG RUDOLPH ON 06/29/2019 AT 02:52 PM EDT DISCLAIMER : THIS IS A VISIT SUMMARY EXTRACTED FROM THE [employer] CHART. IT IS NOT A COPY OF THE [employer] PROGRESS NOTE. KEITH
== END ==
LOC: M PAIN 10:00
PROVIDERS: ATTEND Nurse Practitioner Family
DX: M43.07 Spondylolysis, lumbosacral region (principal); M50.13 Cervical disc disorder with radiculopathy, cervicothoracic region; F17.210 Nicotine dependence, cigarettes, uncomplicated; Z79.82 Long term (current) use of aspirin; Z79.891 Long term (current) use of opiate analgesic; Z88.6 Allergy status to analgesic agent; Z91.030 Bee allergy status

== ENCOUNTER → 2019-09-21 | Outpatient (CLI) | payer MEDICARE, OTHER ==
--- NOTE | 2019-09-22 09:25 | ECWPNPC ---
PATIENT NAME: KEMAR SEGURA : 1955 GENDER: MALE VISIT DATE: 09/21/2019 DISCHARGE DATE: 09/21/19919 VISIT LOCKED DATE TIME: PHYSICIAN: ALESSIA MATHEWS RESOURCE: ALESSIA MATHEWS REASON FOR APPOINTMENT 1. MED AB NECK/LBP/MED MGMNT HISTORY OF PRESENT ILLNESS GENERAL: HERE FOR FOLLOW-UP OF CHRONIC NECK AND LOW BACK PAIN. SINCE HIS LAST VISIT HE HAS HAD A STROKE. HAS BEEN HAVING SOME VISUAL PROBLEMS SINCE. ALSO COMPLAINING OF LEFT SHOULDER PAIN, WHICH IS NEW. FINDS CURRENT MEDICATIONS FOR CHRONIC PAIN HELPFUL AT REDUCING PAIN AND KEEPING HIM FUNCTIONAL. DENIES ADVERSE SIDE EFFECTS. IS ON PLAVIX THERAPY. -. FALL RISK SCREENING: SCREENING :NO FALLS REPORTED IN THE LAST YEAR PAIN SCREENING: PATIENT HAS A COMPLAINT OF ACUTE OR CHRONIC PAIN :YES LOCATION OF PAIN:NECK, LOW BACK INTENSITY OF PAIN (SCALE OF 1 TO 10):3 WHAT DOES YOUR PAIN FEEL LIKE:ACHING, CONTINOUS, SHARP, STABBING, TENDER, SORE NURSING NOTE: -. PAIN CENTER INTAKE QUESTIONS: DO YOU HAVE A HISTORY OF MRSA? :NO DO YOU TAKE A BLOOD THINNERS? :YES PLAVIX DO YOU HAVE ANY BLEEDING DISORDERS? :NO ANY NEW NUMBNESS OR WEAKNESS IN YOUR LEGS OR ARMS? :NO ANY PACEMAKER,DEFIBRILLATOR, OR DORSAL COLUMN STIMULATOR? :NO DO YOU HAVE ANY RASHES OR OPEN SORES? :NO ARE YOU ALLERGIC TO IV DYE? :NO ARE YOU DIABETIC? :NO ANY NEW PROBLEMS WITH YOUR MEDICATIONS? :NO HAVE YOU RECEIVED A VACCINE IN THE PAST 30 DAYS? :NO DO YOU PLAN TO RECEIVE A VACCINE IN THE NEXT 21 DAYS? :NO DO YOU NEED ANY PRESCRIPTION? :YES MORPHINE AND TIZANIDINE DO YOU TAKE ANY IMMUNOSUPPRESSIVE MEDICATIONS? :NO IS THERE A CHANCE YOU COULD BE ? :NO ARE YOU BREAST FEEDING? :NO CURRENT MEDICATIONS TAKING VITAMIN B-COMPLEX TABLET ORALLY DAILY TAKING FISH OIL 1000 MG CAPSULE 1 CAPSULE ORALLY ONCE A DAY TAKING VOLTAREN 1 % GEL TRANSDERMAL TAKING VITAMIN D 2000 UNIT TABLET 1 TABLET ORALLY ONCE A DAY TAKING CALCIUM + D 600-200 MG-UNIT TABLET 1 TABLET ORALLY TWICE A DAY TAKING ASPIR-LOW 81 MG TABLET DELAYED RELEASE 1 TABLET ORALLY ONCE A DAY TAKING MORPHINE SULFATE 15 MG TABLET 1 TABLET ORALLY EVERY 6-8 HRS PRN PAIN MDD=2 TAKING ZANAFLEX 4 MG TABLET 1 TABLET NEEDED ORALLY THREE TIMES A DAY TAKING PLAVIX 75 MG TABLET 1 TABLET ORALLY ONCE A DAY TAKING LIPITOR 20 MG TABLET 1 TABLET ORALLY ONCE A DAY NOT-TAKING IBUPROFEN 600 MG TABLET 1 TABLET ORALLY THREE TIMES A DAY NEEDED MEDICATION LIST REVIEWED AND RECONCILED WITH THE PATIENT PAST MEDICAL HISTORY GERD CLUB FEET INFANT AND HAD BRACES AND CRUTCHES LOW BACK PAIN NECK PAIN LEFT SIDED NUMBNESS STROKE ALLERGIES BEE STINGS: HIVES,ITCHING NAPROSYN: HIVES, ITCHING SURGICAL HISTORY LUMBAR FUSION L-5 S1 EGD 04/2019 FAMILY HISTORY FATHER: 78 YRS, DIAGNOSED WITH HYPERTENSION, DIABETES MOTHER: 56 YRS, OTHER MALIGNANT NEOPLASM OF UNSPECIFIED SITE DAD- MESOPHELIOMA, \NDAUGHTER - MURDERED. SOCIAL HISTORY GENERAL: TOBACCO USE ARE YOU A:CURRENT SMOKER ARE YOU INTERESTED IN QUITTING?THINKING ABOUT QUITTING STATES HE NEEDS TO QUIT FOR SURGERY. COUNSELED THE PATIENT ON SMOKING CESSATION, EDUCATION [id number]/13/2020 HOW MANY CIGARETTES A DAY DO YOU SMOKE?31 OR MORE 2 AND 1/2 PACKS PER DAY HOW SOON AFTER YOU WAKE UP DO YOU SMOKE YOUR FIRST CIGARETTE?WITHIN 5 MIN HOW OFTEN DO YOU SMOKE CIGARETTES?EVERY DAY PATIENT COUNSELED ON THE DANGERS OF TOBACCO USE AND URGED TO QUIT:09/21/2019 SMOKING CESSATION INFORMATION GIVEN10/16/2017 LATEX QUESTIONNAIRE LATEX ALLERGY : HAVE YOU EVER DEVELOPED ANY TYPE OF REACTION AFTER HANDLING LATEX PRODUCTS SUCH RUBBER GLOVES, CONDOMS, DIAPHRAGMS, BALLOONS, SOCKS, OR UNDERWEAR?NO LATEX ALLERGY : HAVE YOU EVER DEVELOPED ANY TYPE OF REACTION DURING OR AFTER DENTAL APPOINTMENT, VAGINAL/RECTAL EXAMINATION, SURGICAL PROCEDURE, OR ANY OTHER EXPOSURE?NO LATEX RISK : HAVE YOU EVER HAD ANY DIFFICULTY BREATHING OR HIVES AFTER EATING OR HANDLING ANY FRUITS, OR VEGETABLES; SUCH KIWI, BANANAS, STONE FRUITS, OR CHESTNUTSNO LATEX RISK : DO YOU HAVE A PREVIOUS PERSONAL HISTORY OF MORE THAN NINE SURGERIES, SPINA BIFIDA, OR REPEATED CATHERIZATIONS? NO LATEX RISK : ARE YOU FREQUENTLY EXPOSED TO LATEX PRODUCTS IN YOUR OCCUPATION?NO DATE ASKED : 09/21/2019 ALCOHOL SCREENING DID YOU HAVE A DRINK CONTAINING ALCOHOL IN THE PAST YEAR?NO POINTS0 INTERPRETATIONNEGATIVE RECREATIONAL DRUG USE DRUG USE?NO CAFFEINE CAFFEINE USE?YES HOW OFTEN AND HOW MUCH? 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 EXERCISE: NO REGULAR EXERCISE. MARITAL STATUS: .. OTHERS AT HOME: NONE. PAIN CLINIC PFS, CLERGY, PUBLIC HEALTH REFERRALS PFS REFERRAL NEEDED?NO CLERGY REFERRAL NEEDED?NO PUBLIC HEALTH REFERRAL NEEDED?NO WAS THE PROVIDER NOTIFIED OF ANY PERTINENT INFO?YES N/A HAS THE PATIENT BEEN EDUCATED REGARDING HIS/HER PLAN OF CARE?YES HAS THE PATIENT BEEN EDUCATED REGARDING PAIN, THE RISK FOR PAIN, THE IMPORTANCE OF EFFECTIVE PAIN MANAGEMENT, AND THE PAIN ASSESSMENT PROCESS?YES ADVANCE DIRECTIVE ADVANCE DIRECTIVE DISCUSSED WITH PATIENT:YES PT HAS NO ADVANCED DIRECTIVES, DECLINED INFORMATION OR ASSISTANCE AT THIS TIME. HOSPITALIZATION/MAJOR DIAGNOSTIC PROCEDURE PNEUMONIA 2012 BACK SURGERY STROKE 08/2019 REVIEW OF SYSTEMS CONSTITUTIONAL: ANY RECENT FEVER NO . CHILLS NO . WEIGHT CHANGE OF UNKNOWN REASONS NO . GASTROENTEROLOGY: NEW UNEXPLAINABLE CHANGES IN BOWEL CONTROL NO . CONSTIPATION NO . GENITOURINARY: ANY NEW CHANGE IN BLADDER CONTROL? NO . NEUROLOGY: NEW ONSET DIZZINESS OR NEUROLOGICAL CHANGES NOT MENTIONED NO . NEW NUMBNESS OR PAIN PATTERNS NOT MENTIONED AND PERTINENT TO TODAY'S VISIT NO . CARDIOLOGY: NEW CHEST PRESSURE NO . NEW CHEST PAIN NO . RESPIRATORY: UNEXPLAINABLE COUGH NO . NEW SHORTNESS OF BREATH NO . VITAL SIGNS WT 249.8 LBS, HT 6'0, BMI 33.88 INDEX, BP 173/90 MM HG, HR 76 /MIN, RR 18 /MIN, TEMP 97.1 F, OXYGEN SAT % 97%, SAFE IN ENV? (Y/N) Y, NA INITIALS [place] 08:45, REVIEWED BY: ANTOINE. EXAMINATION GENERAL EXAMINATION: GENERAL AWAKE,ALERT ,PLEASANT . PSYCH AFFECT NORMAL . NECK:NO LYMPHADENOPATHY, SUPPLE, . LUNGS: LUNG SINGH ARE CLEAR TO AUSCULTATION BILATERALLY. GOOD MOVEMENT OF AIR . HEART: S1, S2 IN A REGULAR RATE AND RHYTHM. NO SIGNIFICANT MURMURS, RUBS OR GALLOPS NOTED . CERVICAL: TRIGGER POINTS:, ELICITED WITH PALPATION OVER CERVICAL SPINOUS PROCESSES AND ACROSS THE TRAPEZIUS MUSCLES BILATERALLY. RESTRICTION OF ROM IS NOTED.. 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 RECENT URINE TOXICOLOGY REVIEWED. NO UNAUTHORIZED MEDICATIONS. NO ILLICIT SUBSTANCES AND PRESCRIBED MEDICATIONS WERE PRESENT. , RISKS OF NARCOTIC/OPIOD MEDICATIONS INCLUDES BUT IS NOT LIMITED TO RISK OF DEPENDANCE/DEVELOPMENT OF ADDICTION, MOOD DISTURBANCE AND DEPRESSION, OSTEOPOROSIS, HORMONAL AND LABIDAL CHANGES, RESPIRATORY DEPRESSION AND . PATIENT IS ADVISED NOT TO DRIVE OR DRINK ALCOHOL WHILE ON THESE MEDICATIONS. PREVENTIVE MEDICINE PAIN CLINIC TEACHING: THE PATIENT HAS BEEN EDUCATED REGARDING PAIN, THE RISK FOR PAIN, THE IMPORTANCE OF EFFECTIVE PAIN MANAGEMENT, AND THE PAIN ASSESSMENT PROCESS. : REVIEWED VERBAL PLAN OF CARE AND DISCHARGE INSTRUCTIONS WITH PT, PT ACKNOWLEDGED UNDERSTANDING, DS PROCEDURE CODES FA211 ESTABILISHED PATIENT [facility] FACILITY CHARGE DISPOSITION & COMMUNICATION FOLLOW UP 2 MONTHS (REASON: MED MANAGEMENT/URINE TOX) ELECTRONICALLY SIGNED BY PEG RUDOLPH ON 09/21/2019 AT 01:24 PM EDT DISCLAIMER : THIS IS A VISIT SUMMARY EXTRACTED FROM THE [employer] CHART. IT IS NOT A COPY OF THE [employer] PROGRESS NOTE. EKITH
== END ==
LOC: M PAIN 09:00
PROVIDERS: ATTEND Nurse Practitioner Family
DX: M43.07 Spondylolysis, lumbosacral region (principal); M50.13 Cervical disc disorder with radiculopathy, cervicothoracic region

== ENCOUNTER → 2019-11-23 | Outpatient (CLI) | payer MEDICARE, OTHER | LOC: M PAIN 08:16 | PROVIDERS: ATTEND Nurse Practitioner Family | DX: M47.812 Spondylosis without myelopathy or radiculopathy, cervical region (principal); M47.817 Spondylosis without myelopathy or radiculopathy, lumbosacral region; Z79.891 Long term (current) use of opiate analgesic ==

== ENCOUNTER → 2024-01-17 | Outpatient (CLI) | payer MEDICARE, OTHER ==
[~2024-01-17] MED LIST changes: +OMEP40CA4 PO; -OMEP40CA97 PO
== END ==
LOC: M RAD 08:14
PROVIDERS: ATTEND Physician Assistant
DX: I65.23 Occlusion and stenosis of bilateral carotid arteries (principal); Z95.828 Presence of other vascular implants and grafts

== ENCOUNTER → 2024-06-05 | Outpatient (CLI) | payer OTHER | LOC: M CARPUL 10:11 | PROVIDERS: ATTEND Registered Nurse | DX: R01.1 Cardiac murmur, unspecified (principal); I50.30 Unspecified diastolic (congestive) heart failure; I08.0 Rheumatic disorders of both mitral and aortic valves; I37.1 Nonrheumatic pulmonary valve insufficiency; I35.0 Nonrheumatic aortic (valve) stenosis ==

== ENCOUNTER → 2025-01-20 | Outpatient (CLI) | payer OTHER | LOC: M RAD 10:28 | PROVIDERS: ATTEND Physician Assistant | DX: I65.23 Occlusion and stenosis of bilateral carotid arteries (principal) ==